=== PATIENT | female | born 1970 | race Caucasian/White ===

== ENCOUNTER 2022-04-18 10:40 | Emergency (ER) | payer BC, SELFPAY ==
[2022-04-18 10:56] VITALS: BP 135/63; PULSE 80; RESP 16; TEMP 36.4; O2SAT 99
--- NOTE | 2022-04-18 11:53 | ED.URI ---
HPI - URI/Sore Throat General Chief Complaint: Upper Respiratory Infection Stated Complaint: ear pain sinus pressure headache Time Seen by Provider: 04/18/22 11:53 Source: patient and RN notes reviewed Mode of arrival: ambulatory Limitations: no limitations History of Present Illness HPI Narrative: 51 year old female presented for complaint of sinus pressure and congestion for several months. She also endorses left ear pain for 5 days. She has had yellow drainage from the left ear and been using a cotton ball. She has been taking [id number] allergy medications for symptoms. She endorses decreased hearing, denies tinnitus, dizziness, nausea, fevers or chills. MD elicited complaint: cough Related Data Home Medications Medication Instructions Recorded Confirmed Vitamin D3 04/18/22 escitalopram oxalate 10 mg tablet 10 mg PO DAILY 04/18/22 04/18/22 escitalopram oxalate 10 mg tablet 10 mg PO DAILY 04/18/22 04/18/22 levothyroxine 137 mcg tablet 137 mcg PO DAILY 04/18/22 04/18/22 (Synthroid) montelukast 10 mg tablet 10 mg PO DAILY 04/18/22 04/18/22 (Singulair) vitamin K 04/18/22 Allergies Allergy/AdvReac Type Severity Reaction Status Date / Time codeine Allergy Unknown Rash Verified 04/18/22 11:50 Review of Systems Review of Systems: CONSTITUTIONAL: Denies malaise, chills, sweats, fever EYES: Denies visual changes, redness, or discharge ENT: Reports left ear pain, rhinorrhea, congestion CARDIOVASCULAR: Denies chest pain, palpitations, edema RESPIRATORY: Denies dyspnea GASTROINTESTINAL: Denies abdominal pain, nausea, vomiting, diarrhea SKIN: Denies rash or itching MUSCULOSKELETAL: Denies myalgia Exam Narrative: GENERAL: Ill-appearing, nontoxic EYES: conjunctivae clear ENT: Mucous membranes moist. Right TM pearly leiva with dull light reflex; Left TM red, bulging, and tender with red canal. no tragal tenderness. Oropharynx erythematous without lesions or exudate, no drooling, no hoarseness, no trismus, uvula midline. No tripod positioning, muffled voice, soft palate or pharyngeal wall bulging NECK: Supple. Posterior cervical lymphadenopathy CHEST: Clear to auscultation, breath sounds equal. HEART: Regular rate and rhythm. No murmur heard. SKIN: Warm, dry, no rash. NEURO: Alert and oriented x3. Course Course Emergency Course: Patient is aware of diagnosis, understands and agrees to treatment plan. Anticipatory guidance given. Patient agrees to follow-up as directed and is aware of reasons to seek care at the emergency department. Portions of this record may have been created with voice recognition software Level of Care: Express Care Visit Vital Signs Vital signs: Vital Signs Temperature 97.5 F L 04/18/22 10:56 Pulse Rate 80 04/18/22 10:56 Respiratory Rate 16 04/18/22 10:56 Blood Pressure 135/63 04/18/22 10:56 Pulse Oximetry 99 04/18/22 10:56 Oxygen Delivery Room Air 04/18/22 10:56 Temperature 97.5 F L 04/18/22 10:56 Pulse Rate 80 04/18/22 10:56 Respiratory Rate 16 04/18/22 10:56 Blood Pressure 135/63 04/18/22 10:56 Pulse Oximetry 99 04/18/22 10:56 Oxygen Delivery Room Air 04/18/22 10:56 reviewed MDM - URI/Sore Throat MDM Narrative Medical decision making narrative: Advised supportive measures and signs/symptoms to go to the ER. Pt is appropriate for outpt treatment and f/u. Differential Diagnosis Differential diagnosis: Likely upper respiratory infection, otitis media, sinusitis and viral infection Discharge Plan Discharge Clinical Impression: Otitis media Qualifiers: Otitis media type: suppurative Chronicity: acute Laterality: left Recurrence: non-recurrent Spontaneous tympanic membrane rupture: without spontaneous rupture Qualified Code(s): H66.002 - Acute suppurative otitis media without spontaneous rupture of ear drum, left ear Patient Disposition: Home, Self-Care Condition: Stable Instructions: Antibiotic Form, Ear Infecti
== END 2022-04-18 12:15 | disposition home or self-care (01) ==
PROVIDERS: Emergency Provider Nurse Practitioner Family; PCP Nurse Practitioner Family
DX: H66.002 Acute suppurative otitis media without spontaneous rupture of ear drum, left ear (principal)
CPT/HCPCS: 99203; G0463

== ENCOUNTER 2024-08-26 16:01 | Emergency (ER) | payer OTHER, SELFPAY ==
--- NOTE | ~2024-08-26 | CT_ITS ---
Non-contrast Head CT History: Headache Technique: Axial non-contrast imaging of the brain was performed. Dose reduction technique was used on this scan by utilizing automated exposure control and iterative reconstruction technique. The dose -length product (DLP) was 605.33 mGy-cm. Findings: There is no evidence of intracranial hemorrhage, mass lesion, or acute infarct. Brain par enchyma appears normal. The ventricles and subarachnoid spaces are normal in size. The calvarium ap pears normal. The visualized paranasal sinuses and mastoid air cells are clear. Impression: No significant abnormality seen. Reviewed, dictated and finalized at location . ACORPOREAL TECHNICIAN Impression: No significant abnormality seen.
--- NOTE | ~2024-08-26 | XR_ITS ---
CHEST RADIOGRAPH CLINICAL HISTORY: cough . COMPARISON: None available TECHNIQUE: Single portable view of the chest. FINDINGS The cardiomediastinal silhouette is unremarkable. The lungs are clear. Visualized osseous structures and soft tissues are unremarkable. IMPRESSION: No focal infiltrate or effusion. Reviewed, dictated and finalized at location A. ER [facility]
[2024-08-26 16:02] VITALS: BP 123/82; PULSE 67; RESP 14; TEMP 36.4; O2SAT 99
--- NOTE | 2024-08-26 16:28 | ED_ITS ---
HPI - Weakness General Chief complaint: Weakness <Samia Page PA-C - Last Filed: 08/26/24 18:46> Stated complaint: head pressure <Samia Page PA-C - Last Filed: 08/26/24 18:46> Time Seen by Provider: 08/26/24 23:11 <Samia Page PA-C - Last Filed: 08/26/24 18:46> Focused HPI: 53-year-old female with history of hypothyroidism presents to emergency department for multiple medical complaints. Patient is reporting sinus congestion, cough, dizziness for the past several months. Dizziness is worse with movement, better when sitting still. She states she feels like her equilibrium is off and her ears are full. 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 She also expresses frustration that she had to clean her bathroom and she does not receive help from the rest of her family for house duties. GENERAL: Well-appearing, well-nourished, and in no acute distress. HEAD: Normocephalic, atraumatic. CHEST: Clear to auscultation. ?No respiratory distress. HEART: Regular rate and rhythm.? NEURO: ?Alert and oriented x3. Patient screened in triage and initial orders placed.? ?Additional care and disposition to be based upon?diagnostic testing and treatment. <Samia Page PA-C - Last Filed: 08/26/24 18:46> History of Present Illness HPI Narrative: Agree with the HPI as described above. Patient's main concern is that she is having a headache on and off for last several days. She has multiple non emergent or non medical complaints and has difficulty staying on topic when discussing. Patient states that she has transportation issues, issues with her , disability issues. When asked why she came to the hospital today she just wanted something for headache and have some relief. Denies any injury or trauma. <Facundo Chicas MD - Last Filed: 08/27/24 00:52> Related Data Home medications: Home Medications ?Medication ?Instructions ?Recorded ?Confirmed ?Last Taken ?Type Vitamin D3 04/18/22 Unknown History escitalopram oxalate 10 mg tablet 10 mg PO DAILY 04/18/22 04/18/22 Unknown History escitalopram oxalate 10 mg tablet 10 mg PO DAILY 04/18/22 04/18/22 Unknown History levothyroxine 137 mcg tablet 137 mcg PO DAILY 04/18/22 04/18/22 Unknown History (Synthroid) montelukast 10 mg tablet 10 mg PO DAILY 04/18/22 04/18/22 Unknown History (Singulair) vitamin K 04/18/22 Unknown History <Samia Page PA-C - Last Filed: 08/26/24 18:46> Allergies/Adverse reactions: Allergies Allergy/AdvReac Type Severity Reaction Status Date / Time codeine Allergy Unknown Rash Verified 04/18/22 11:50 <Samia Page PA-C - Last Filed: 08/26/24 18:46> Review of Systems 2 Review of Systems: As reviewed above in HPI <Facundo Chicas MD - Last Filed: 08/27/24 00:52> Exam 2 Narrative: GENERAL: [Well-appearing, well-nourished, and in no acute distress.] HEAD: [Normocephalic, atraumatic.] EYES: [PERRLA and EOMI.] ENT: Nares clear, no rhinorrhea or epistaxis. Mucous membranes moist. NECK: Supple. CHEST: [Clear to auscultation. No respiratory distress.] HEART: [Regular rate and rhythm]. No murmur heard. [Normal peripheral pulses.] ABDOMEN: [Soft, nondistended], [nontender], [No rigidity or guarding] EXTREMITIES: Normal range of motion. [No edema.] SKIN: Warm, dry, no rash. NEURO: [No focal deficits]. Alert and oriented [x3.] Moves all extremities spontaneously, no weakness or sensory changes in the arms or legs. Answers all questions appropriately. PSYCH: [Normal mood and affect.] <Facundo Chicas MD - Last Filed: 08/27/24 00:52> Course Vital Signs Vital signs: Vital Signs Temperature 36.4 C 08/26/24 16:02 Pulse Rate 67 08/26/24 16:02 Respiratory Rate 14 08/26/24 16:02 Blood Pressure 123/82 08/26/24 16:02 Pulse Oximetry 99 08/26/24 16:02 Temperature 36.4 C 08/26/24 16:02 Pulse Rate 61 08/26/24 23:33 Respiratory Rate 19 08/26/24 23:33 Blood Pressure 150/82 H 08/26/24 23:33 Pulse Oximetry 99 08/26/24 23:33 <Samai Page PA-C - Last Filed: 08/26/24 18:46> Vital Signs Temperature 36.4 C 08/26/24 16:02 Pulse Rate 67 08/26/24 16:02 Respiratory Rate 14 08/26/24 16:02 Blood Pressure 123/82 08/26/24 16:02 Pulse Oximetry 99 08/26/24 16:02 Temperature 36.4 C 08/26/24 16:02 Pulse Rate 61 08/26/24 23:33 Respiratory Rate 19 08/26/24 23:33 Blood Pressure 150/82 H 08/26/24 23:33 Pulse Oximetry 99 08/26/24 23:33 <Facundo Chicas MD - Last Filed: 08/27/24 00:52> MDM - Weakness MDM Narrative Medical decision making narrative: 53-year-old female with a remote history of MS, hypothyroidism. She presents today with multiple complaints but mostly is worried about a headache she has had for last few days. She has describes head pressure, sinus pressure, throbbing sensation behind her eyes. Denies any vision changes or nausea. No vomiting. She was otherwise in normal state of health. She has multiple non emergent and nonmedical complaints and it takes several attempts to get her chief complaint. She has a nonfocal examination with normal neurological assessment, normal strength and sensation. Normal vital signs without any tachycardia, fever, hypoxia blood pressure concerns. Normal strength and sensation, no facial asymmetry. Suspicion presently is for some cephalgia, tension headache versus sinus pressure headache, migraine headache. Low suspicion for MS or other new intracranial pathology causing her symptoms. Denies any trauma or injury. Will evaluate with a CT of the head as well as basic laboratory studies. She was given a migraine cocktail with Compazine, diphenhydramine, Decadron, Toradol, normal saline bolus and re-evaluated thereafter. Patient did have improvement her headache but also started to feel some akathisia for which additional Benadryl was given with improvement. Her CT of the head shows no acute hemorrhage hydrocephalus, mass effect or herniation. Overall unremarkable CT scan. Laboratory studies are also reassuring with no leukocytosis or anemia. Normal platelet count normal hepatic and renal function. Normal electrolytes. Normal glucose. Urinalysis without any concerns such as infection. Negative viral panel. Given patient's symptomatic resolution after migraine cocktail and her normal labs I believe she can be safe and stable to discharge with regular PCP follow- up. She presently does not have a neurologist in the area she moved here recently. She will be referred to her local neurologist for evaluation outpatient for her MS to have continuity of care. <Facundo Chicas MD - Last Filed: 08/27/24 00:52> Medical Records Attestation: I reviewed the patient's medical records. <Facundo Chicas MD - Last Filed: 08/27/24 00:52> Lab Data Attestation: I reviewed the patient's lab results. <Facundo Chicas MD - Last Filed: 08/27/24 00:52> Result diagrams: 08/26/24 17:25 08/26/24 17:26 <Samia Page PA-C - Last Filed: 08/26/24 18:46> Labs: Lab Results 08/26/24 08/26/24 08/26/24 Range/Units 17:25 17:26 22:10 WBC 6.9 (4.5-10.0) K/mm3 RBC 4.58 (4.2-5.4) M/mm3 Hgb 13.7 (12.0-15.0) g/dL Hct 42.6 (37.0-47.0) % MCV 93.0 (80-100) fl MCH 29.9 (26-34) pg MCHC 32.2 (32-36) g/dl RDW 13.2 (11.5-14.5) % Plt Count 236 (150-375) k/mm3 MPV 10.2 (7.4-10.4) fl Immature Gran % (Auto) 0.3 (0-0.5) % Neut % (Auto) 34.8 L (45.5-73.1) % Lymph % (Auto) 52.0 H (18.3-44.2) % [place] % (Auto) 7.1 (2.6-8.5) % Eos % (Auto) 5.2 H (0-4.4) % Baso % (Auto) 0.6 (0.2-1.2) % Lymph # (Auto) 3.58 H (0.9-3.2) K/mm3 [place] # (Auto) 0.5 (0.1-0.6) K/mm3 Eos # (Auto) 0.4 H (0-0.3) K/mm3 Baso # (Auto) 0.0 (0.0-0.1) K/mm3 Abs Immat Gran (auto) 0.02 (0.00-0.031) K/mm3 Absolute Neuts (auto) 2.4 (1.3-6.7) K/mm3 Absolute Nucleated RBC 0.000 (0.0-0.012) K/mm3 Nucleated RBC % 0.0 (0.0-0.2) % Sodium 139 (137-145) mmol/L Potassium 3.7 (3.4-5.0) mmol/L Chloride 103 (98-107) mmol/L Carbon Dioxide 29 (22-30) mmol/L Anion Gap 7 (4-12) mmol/L BUN 20 H (7-17) mg/dL Creatinine 0.74 (0.7-1.0) mg/dL Estim Creat Clear Calc Not Reportable Estimated GFR > 60 (59 - ) Glucose 95 (65-110) mg/dL Calcium 8.3 L (8.4-10.2) mg/dL Total Bilirubin 0.4 (0.2-1.3) mg/dL AST 22 (14-36) U/L ALT 18 (6-35) U/L Alkaline Phosphatase 62 (38-126) U/L Total Protein 7.0 (6.3-8.2) g/dL Albumin 3.7 (3.5-5.1) g/dL Urine Color Yellow (Yellow) Urine Appearance Clear (Clear) Urine pH 6.0 (5.0-9.0) Ur Specific [place] 1.024 (1.001-1.035) Urine Protein Negative (Negative) mg/dL Urine Glucose (UA) Negative (Negative) mg/dL Urine Ketones Negative (Negative) mg/dL Ur Blood (Man) Negative (Negative) Urine Nitrate Negative (Negative) Urine Bilirubin Negative (Negative) Urine Urobilinogen 1.0 (<2.0) mg/dL Leukocyte Esterase Rfl Negative (Negative) TRESA/UL Influenza A (RT-PCR) Negative (Negative) Influenza B (RT-PCR) Negative (Negative) RSV (RT-PCR) Negative (Negative) SARS-CoV-2 RNA (RT-PCR) Negative (Negative) <Samia Page PA-C - Last Filed: 08/26/24 18:46> Lab Results 08/26/24 08/26/24 08/26/24 Range/Units 17:25 17:26 22:10 WBC 6.9 (4.5-10.0) K/mm3 RBC 4.58 (4.2-5.4) M/mm3 Hgb 13.7 (12.0-15.0) g/dL Hct 42.6 (37.0-47.0) % MCV 93.0 (80-100) fl MCH 29.9 (26-34) pg MCHC 32.2 (32-36) g/dl RDW 13.2 (11.5-14.5) % Plt Count 236 (150-375) k/mm3 MPV 10.2 (7.4-10.4) fl Immature Gran % (Auto) 0.3 (0-0.5) % Neut % (Auto) 34.8 L (45.5-73.1) % Lymph % (Auto) 52.0 H (18.3-44.2) % [place] % (Auto) 7.1 (2.6-8.5) % Eos % (Auto) 5.2 H (0-4.4) % Baso % (Auto) 0.6 (0.2-1.2) % Lymph # (Auto) 3.58 H (0.9-3.2) K/mm3 [place] # (Auto) 0.5 (0.1-0.6) K/mm3 Eos # (Auto) 0.4 H (0-0.3) K/mm3 Baso # (Auto) 0.0 (0.0-0.1) K/mm3 Abs Immat Gran (auto) 0.02 (0.00-0.031) K/mm3 Absolute Neuts (auto) 2.4 (1.3-6.7) K/mm3 Absolute Nucleated RBC 0.000 (0.0-0.012) K/mm3 Nucleated RBC % 0.0 (0.0-0.2) % Sodium 139 (137-145) mmol/L Potassium 3.7 (3.4-5.0) mmol/L Chloride 103 (98-107) mmol/L Carbon Dioxide 29 (22-30) mmol/L Anion Gap 7 (4-12) mmol/L BUN 20 H (7-17) mg/dL Creatinine 0.74 (0.7-1.0) mg/dL Estim Creat Clear Calc Not Reportable Estimated GFR > 60 (59 - ) Glucose 95 (65-110) mg/dL Calcium 8.3 L (8.4-10.2) mg/dL Total Bilirubin 0.4 (0.2-1.3) mg/dL AST 22 (14-36) U/L ALT 18 (6-35) U/L Alkaline Phosphatase 62 (38-126) U/L Total Protein 7.0 (6.3-8.2) g/dL Albumin 3.7 (3.5-5.1) g/dL Urine Color Yellow (Yellow) Urine Appearance Clear (Clear) Urine pH 6.0 (5.0-9.0) Ur Specific [place] 1.024 (1.001-1.035) Urine Protein Negative (Negative) mg/dL Urine Glucose (UA) Negative (Negative) mg/dL Urine Ketones Negative (Negative) mg/dL Ur Blood (Man) Negative (Negative) Urine Nitrate Negative (Negative) Urine Bilirubin Negative (Negative) Urine Urobilinogen 1.0 (<2.0) mg/dL Leukocyte Esterase Rfl Negative (Negative) TRESA/UL Influenza A (RT-PCR) Negative (Negative) Influenza B (RT-PCR) Negative (Negative) RSV (RT-PCR) Negative (Negative) SARS-CoV-2 RNA (RT-PCR) Negative (Negative) <Facundo Chicas MD - Last Filed: 08/27/24 00:52> Imaging Data Attestation: I personally reviewed and interpreted this imaging study as follows: < Facundo Chicas MD - Last Filed: 08/27/24 00:52> My impression: Impressions Chest X-Ray 08/26/24 16:57 IMPRESSION: No focal infiltrate or effusion. <Facundo Chicas MD - Last Filed: 08/27/24 00:52> Discharge Plan Discharge Clinical Impression: Migraine headache, History of multiple sclerosis <Samia Page PA-C - Last Filed: 08/26/24 18:46> Patient Disposition: Home, Self-Care <Samia Page PA-C - Last Filed: 08/26/24 18:46> Condition: Stable <Samia Page PA-C - Last Filed: 08/26/24 18:46> Instructions: Antibiotic Form, Migraine Headache (ED), Acute Headache (DC) <Samia Page PA-C - Last Filed: 08/26/24 18:46> Additional Instructions: Your headache likely sounds like a migraine, your head CT shows no findings, normal laboratory studies. We will refer you to our local neurologist for outpatient evaluation and to establish care for your MS treatments. Return with any concerns. <Samia Page PA-C - Last Filed: 08/26/24 18:46> Patient Language: [place] <Samia Page PA-C - Last Filed: 08/26/24 18:46> Prescriptions: No Action levothyroxine [Synthroid] 137 mcg Tablet 137 mcg PO DAILY montelukast [Singulair] 10 mg Tablet 10 mg PO DAILY escitalopram oxalate 10 mg Tablet 10 mg PO DAILY escitalopram oxalate 10 mg Tablet 10 mg PO DAILY Vitamin D3 vitamin K ibuprofen 800 mg tablet 800 mg PO TID PRN (Reason: pain) Qty: 15 0RF amoxicillin-pot clavulanate 875-125 mg tablet 1 tablet PO Q12H 7 Days Qty: 14 0RF <Samia Page PA-C - Last Filed: 08/26/24 18:46> Follow-up/Referrals: Meraz,Iraida Hutchins APN [Primary Care Provider] - Odin Moore MD [Physician] - 1 Week (Establish care, history of MS) <LAURENCE Randhawa Last Filed: 08/26/24 18:46> Time of Disposition: 00:52 <Samia Page PA-C - Last Filed: 08/26/24 18:46> 00:52 <Facundo Chicas MD - Last Filed: 08/27/24 00:52>
[2024-08-26 17:40] LABS: Basophils Percent Auto 0.6 % (0.2-1.2); Eosinophils Absolute Auto 0.4 K/mm3 (0-0.3); Eosinophils Percent Auto 5.2 % (0-4.4); Hematocrit 42.6 % (37.0-47.0); Hemoglobin 13.7 g/dL (12.0-15.0); Immature Granulocyte Absolute 0.02 K/mm3 (0.00-0.031); Immature Granulocyte Percent A 0.3 % (0-0.5); Lymphocytes Absolute Auto 3.58 K/mm3 (0.9-3.2); Mean Corpuscular HGB Conc 32.2 g/dl (32-36); Mean Corpuscular Hemoglobin 29.9 pg (26-34); Mean Platelet Volume 10.2 fl (7.4-10.4); Monocytes Absolute Auto 0.5 K/mm3 (0.1-0.6); Monocytes Percent Auto 7.1 % (2.6-8.5); Neutrophils Absolute Auto 2.4 K/mm3 (1.3-6.7); Neutrophils Percent Auto 34.8 % (45.5-73.1); Platelet Count Result 236 k/mm3 (150-375); Red Blood Count 4.58 M/mm3 (4.2-5.4); Red Cell Distribution Width 13.2 % (11.5-14.5); White Blood Count 6.9 K/mm3 (4.5-10.0)
[2024-08-26 17:59] LABS: Alanine Aminotransferase 18 U/L (6-35); Albumin Level 3.7 g/dL (3.5-5.1); Alkaline Phosphatase 62 U/L (38-126); Anion Gap 7 mmol/L (4-12); Aspartate Amino Transferase 22 U/L (14-36); Bilirubin,Total 0.4 mg/dL (0.2-1.3); Blood Urea Nitrogen 20 mg/dL (7-17); Calcium 8.3 mg/dL (8.4-10.2); Carbon Dioxide 29 mmol/L (22-30); Chloride 103 mmol/L (98-107); Estimated Glomerular Filt Rate > 60; Glucose 95 mg/dL (65-110); Potassium 3.7 mmol/L (3.4-5.0); Sodium 139 mmol/L (137-145)
[2024-08-26 18:23] LABS: Influenza A QL RT-PCR Negative (Negative); Influenza B QL RT-PCR Negative (Negative); RSV RNA, RT-PCR Negative (Negative); SARS-CoV-2 RNA PCR Negative (Negative)
--- OUTSIDE RECORDS SUMMARY | 2024-08-26 18:25 | XMS_ITS | Clinical Summary ---
Author Organization [facility] Address [address] [place] [address] Phone Care Team Providers Care Insurance Auditor Name Role Phone KIYA BUITRAGO NP Primary Care Provider [phone] LELA MCCANN, HENRI Jackson Unavailable [phone] Reason for Visit and Chief Complaint gynecologic annual exam - The Chief Complaint is: Annual Exam Problems Includes: Problems addressed during this encounter and other active Problems Current Visit Onset Date Resolved Date Provider Conditio n Status Reported Family History of Heart Disease 02/24/2015 JASE MAGANA RN [facility] Active Last Documented On 02/24/2015 1:16PM ; [facility] Note: Unchanged - dad History of Hypothyroidism 02/24/2015 JASE MAGANA RN [facility] Active Last Documented On 02/24/2015 1:16PM ; [facility] Note: Unchanged History of Tubal Ligation 02/24/2015 JASE MAGANA RN [facility] Active Last Documented On 02/24/2015 1:16PM ; [facility] Note: Unchanged Past Visits Onset Date Resolved Date Provider Condition Status Excessive Bleeding During Period (Menorrhagia) 10/20/2015 03/30/2020 JASE MAGANA RN [facility] Resolved Last Documented On 03/30/2020 10:31AM ; [facility] Note: Unchanged - -- pt states the LMP s tarted on09/20/2015 and is still going to now. In her heaviest 24 hours she has gone throught 3 items per 24 hours. She has needed this many for 7 days of the flow. Most of the other days just one item. Piror menses was a month earlier and it lasted 14 days in similar amounts. Multiple Sclerosis 02/24/2015 JASE DUPONT RN [facility] Active Last Documented On 5 1:17PM ; [facility] Plan of Treatment - Weight loss diet - Last Documented On 03/30/2020 10:47AM ; [facility] - Clinical summary provided to patient - Last Documented On 03/30/2020 10:47AM ; [facility] PT TO CALL WITH ANY CHANGE IN STATUS ALL QUESTIONS ANSWERED WITH UNDERSTANDING VERBALIZED BY PT. - Last Documented On 03/30/2020 10:47AM ; [facility] PT TO CALL WITH ANY CHANGE IN STATUS ALL QUESTIONS ANSWERED WITH UNDERSTANDING VERBALIZED BY PT. - Last Documented On 03/30/2020 10:47AM ; [facility] Instructions to patient Instructed to call if excess wesly bleeding or abdominal/pelvic pain Last Documented On 0 10:32AM ; [facility] Instructions For Patient: Mo nthly Self Breast Exam Last Documented On 0 10:32AM ; [facility] Recommend diet and exercise at least 30 min three times per week Last Documented On 0 10:32AM ; [facility] Education and Decision Aids were provided during visit for: Patient Education: Daily emily cium and vitamin D Last Documented On 0 10:32AM ; [facility] Assessments Includes: Assessments from this encounter Findings - Routine gynecological exam with abnormal findings - Last Documented On 03/30/2020 10:47AM ; [facility] - Cutaneous candidiasis - Last Documented On 03/30/2020 10:47AM ; [facility] - Screen malignant neoplasm cervix - Last Documented On 03/30/2020 10:47AM ; [facility] Instructions Includes: Instructions from this encounter Instructions to patient Instructed to call if excess wesly bleeding or abdominal/pelvic pain Last Documented On 0 10:32AM ; [facility] Instructions For Patient: Mo nthly Self Breast Exam Last Documented On 0 10:32AM ; [facility] Recommend diet and exercise at least 30 min three times per week Last Documented On 0 10:32AM ; [facility] Education and Decision Aids were provided during visit for: Patient Education: Daily emily cium and vitamin D Last Documented On 0 10:32AM ; [facility] Medical Equipment - Implanted Devices Includes: Current Devices No Medical Equipment Recorded Medications Includes: Medications discussed during this encounter and other current Medications New / Renewed during this visit JASE MAGANA RN [facility] on 03/30/2020 Nystatin 183007 UNIT/GM External Cream Provider: JASE MAGANA RN [place] P 7 day supply: 30 gram, 2 refills Diagnosis: Candidiasis of skin and nail as directed THREE TIMES A DA Y TO AFFECTED AREAS Pharmacy: [address], [id number] - Last Documented On 0 10:49AM By JASE SMITH- ; [facility] Current Medications (continue as prescribed) Augmentin 875-125MG Oral Tablet 03/20/2017 Provider: Diagnosis: for 10 days for sinus infection Last Documented On 7 10:12AM By ABHINAV CHERY ; [facility] SM Echinacea 125MG Oral Tablet 03/20/2017 Provider: Diagnosis: Last Documented On 7 10:12AM By ABHINAV CHERY ; [facility] Turmeric 500MG Oral Capsule, conventional 03/20/2017 Provider: Diagnosis: Last Documented On 7 10:13AM By ABHINAV CHERY ; [facility] Jessie Allergy 180MG Oral Tablet 03/20/2017 Provide r: Diagnosis: Last Documented On 7 10:13AM By ABHINAV CHERY ; [facility] Buffered Vitamin C 1000MG Oral Capsule, conventional 0 03/20/2017 Provider: Diagnosis: Last Documented On 7 10:11AM By ABHINAV CHERY ; [facility] Digestive Probiotic Oral Capsule, conventional Provider: Diagnosis: Last Documented On 7 10:11AM By ABHINAV CHERY ; [facility] B Complex-B12 Tablet 03/17/2016 Provider: Diagnosis: Last Documented On 03/17/2016 3:22PM By VINNIE YAP MA ; [facility] Vitamin D3 1000 UNIT Tablet 03/17/2016 Provider: Diagnosis: Last Documented On 03/17/2016 3:22PM By VINNIE YAP MA ; [facility] Daily Value Multivitamin Tablet 03/17/2016 Provider: Diagnosis: Last Documented On 03/17/2016 3:22PM By VINNIE YAP MA ; [facility] Singulair 4 MG Tablet, chewable 03/17/2016 Provider: Diagnosis: Last Documented On 03/17/2016 3:21PM By VINNIE YAP MA ; [facility] Flonase 50 MCG/ACT Suspension 02/24/2015 Provider: Diagnosis: Last Documented On 5 1:10PM By MAX CHERY ; [facility] Levothyroxine Sodium 100 MCG Tablet 02/24/2015 Provi danny: Diagnosis: Last Documented On 5 12:58PM By MAX CHERY ; [facility] Past Medications on file Ibuprofen 800MG Oral Tablet 03/22/2018 - 04/05/2018 Provider: JASE SMITH BC Diagnosis: Insect bite (nonvenomous) of breast, left breast, init One tablet three times a day TAKE DIRECTED W/FOOD Last Documented On 8 8:38AM By JASE BEATTY ; [facility] Sulfamethoxazole-Trimethopri m 800-160MG Oral Tablet 03/22/2018 - 03/29/2018 Provider: JASE SMITH BC Diagnosis: Insect bite (nonvenomous) of breast, left breast, init One tablet twice a day ONE TAB 2 TIMES A DAY WIT H FOOD Last Documented On 8 8:38AM By JASE JACOBS ; [facility] Sprintec 28 0.25-35MG-MCG Oral Tablet 03/22/2018 - 03/17/2019 Provider: JASE SMITH BC Diagnosis: Other specified abnormal uterine and vaginal bleeding One tablet daily Last Documented On 8 8:38AM By JASE JACOBS ; [facility] Naproxen 500MG Oral Tablet 03/15/2018 - 03/22/2018 Provider: JASE SMITH BC Diagnosis: Insect bite (nonvenomous) of breast, left breast, init One tablet twice a day ONE T AB TWICE A DAY WITH FOOD DON'T EXCEED 2 TABS IN 24 HOURS Last Documented On 8 9:11AM By JASE JACOBS ; [facility] Fluconazole 150MG Oral Tablet 03/15/2018 - 03/22/2018 Provider: JASE SMITH BC Diagnosis: Insect bite (nonvenomous) of breast, left breast, init as directed take one tablet day 4 and one tablet day 7 of antibiotics Last Documented On 8 9:11AM By JASE JACOBS ; [facility] Amoxicillin-Pot Clavulanate 875-125MG Oral Tablet 03/15/2018 - 03/22/2018 Provider: JASE SMITH BC Diagnosis: Insect bite (nonvenomous) of breast, left breast, init One tablet twice a day Last Documented On 8 9:11AM By JASE JACOBS ; [facility] Lo Loestrin Fe 1 MG-10 MCG /10 MCG Oral Tablet 03/20/2017 - 05/15/2017 Provider: JASE SMITH BC Diagnosis: Excessive and fr equent menstruation with regular cycle One tablet daily USE DIRECTED Last Documented On 7 10:42AM By JASE JACOBS ; [facility] Medications Administered Includes: Administered Medications from this encounter No Administered Medications Recorded Vital Signs Includes: Vital Signs from this encounter Vital Name 03/30/2020 10:24A Blood Pressure Sitting (mmHg) 120/60 Temp-Oral (F) 97.2 Height (in) 59 Weight (lb) 177 Body Mass Index (kg/m2) 35.7 Body Surface Area (m2) 1.8 Last Documented: On 03/30/2020 10:28A M ; [facility] Results Includes: Results discussed during this encounter No Results Recorded For Specified Dates History of Present Illness Includes: History of Present Illness from this encounter No History of Present Illness Recorded Social History Description Last Updated Sexually active 03/30/2020 Last Documented On 0 10:47AM ; [facility] Alcohol use: 2 drinks or less per day no ne 03/30/2020 Last Documented On 0 10:47AM ; [facility] Exercising regularly 03/30/2020 Last Documented On 0 10:47AM ; [facility] Not using alcohol 03/30/2020 Last Documented On 0 10:47AM ; [facility] Not using drugs 03/30/2020 Last Documented On 0 10:47AM ; [facility] Personal history 03/30/2020 Last Documented On 0 10:47AM ; [facility] Single 03/30/2020 Last Documented On 0 10:47AM ; [facility] Smoking status : Never smoker 03/30/2020 Last Documented On 0 10:47AM ; [facility] Social history unchanged 03/30/2020 Last Documented On 0 10:47AM ; [facility] Procedures and Surgical History Includes: Procedures from this encounter Procedures Code Diagnosis Performing Provider Service L ocation Service Date education and instructions Last Documented On 0 10:32AM ; [facility] explanation of plan Last Documented On 0 10:32AM ; [facility] medical regimen review Last Documented On 0 10:32AM ; [facility] Urged Exercise and Diet , exercise at le ast 30 min three times per week Last Documented On 0 10:32AM ; [facility] cervical Pap smear 20690 Last Documented On 0 10:32AM ; [facility] FIT Test-Fecal Occult negative 85687 Last Documented On 0 10:32AM ; [facility] Surgical History Last Updated Surgical / procedural history c/s x2 Last Documented On 0 10:24AM ; [facility] Previous colposcopy 04/15/2010 5 Last Documented On 0 10:24AM ; [facility] Surgical history unchanged 02/24/2015 Last Documented On 0 10:24AM ; [facility] History of cholecystectomy 02/24/2015 Last Documented On 0 10:24AM ; [facility] History of tubal ligation 02/24/2015 Last Documented On 0 10:24AM ; [facility] Medical History Includes: Medical History addressed during this encounter Description Last Updated A mammogram was performed 03/30/2020 Last Documented On 0 10:47AM ; [facility] History of a DXA of the lateral lumbar s pine was performed 03/28/2019 03/30/2020 Last Documented On 0 10:47AM ; [facility] History of Pap smear done 03/26/201903/04 Last Documented On 0 10:47AM ; [facility] History of screening mammogram was perfo rmed 04/06/2019 03/30/2020 Last Documented On 0 10:47AM ; [facility] Not sexually active 1 partner 03/26/2019 Last Documented On 0 10:24AM ; [facility] LMP: 2017 03/15/2018 Last Documented On 0 10:24AM ; [facility] History of dysfunctional uterine bleedin g 03/20/2017 Last Documented On 0 10:24AM ; [facility] Aborta 1 03/20/2017 Last Documented On 0 10:24AM ; [facility] 3 03/20/2017 Last Documented On 0 10:24AM ; [facility] Para 2 03/20/2017 Last Documented On 0 10:24AM ; [facility] Result: normal 03/20/2017 Last Documented On 0 10:24AM ; [facility] PRIMARY CARE PROVIDER : prakash Buitrago Last Documented On 0 10:24AM ; [facility] section x 2 01/19/2016 Last Documented On 0 10:24AM ; [facility] Status post tubal ligation 01/19/2016 Last Documented On 0 10:24AM ; [facility] ovarian cysts 05/13/2015 Last Documented On 0 10:24AM ; [facility] MULTIPLE SCLEROSIS 02/24/2015 Last Documented On 0 10:24AM ; [facility] History of hypothyroidism 02/24/2015 Last Documented On 0 10:24AM ; [facility] No recent change in medical history 02/01 Last Documented On 0 10:24AM ; [facility] Family History Includes: Family History addressed during this encounter Description Last Updated Maternal history of hypertension mom Last Documented On 0 10:24AM ; [facility] Maternal history of hypercholesterolemia mom 06/24/2015 Last Documented On 0 10:24AM ; [facility] Paternal history of diabetes mellitus da d 06/24/2015 Last Documented On 0 10:24AM ; [facility] Paternal history of family history of he art disease dad 06/24/2015 Last Documented On 0 10:24AM ; [facility] Family history unchanged 02/24/2015 Last Documented On 0 10:24AM ; [facility] Family history of diabetes mellitus dad 02/24/2015 Last Documented On 0 10:24AM ; [facility] Family history of heart disease dad 02/01 Last Documented On 0 10:24AM ; [facility] Family history of hypercholesterolemia m om 02/24/2015 Last Documented On 0 10:24AM ; [facility] Family history of hypertension mom 02/24 Last Documented On 0 10:24AM ; [facility] Review of Systems Includes: Review of Systems from this encounter Systemic: Not tiring easily. No fever, no chills, no unusual bleeding, and no recent weight change. No pain. Head: No headache. Neck: No neck pain and no swollen glands in the neck. Eyes: No vision problems. Breasts: No breast symptoms, no breast lump, no pain in breast, and patient performs self breast exams. Cardiovascular: No chest pain or discomfort and no palpitations. Pulmonary: No pulmonary symptoms, no dyspnea, no cough, and no wheezing. Gastrointestinal: No heartburn. No nausea, no vomiting, no abdominal pain, no diarrhea, and no constipation. Genitourinary: No change in urinary frequency and no incomplete emptying of bladder. No urinary loss of control and no dysuria. No genital lesion, no pain during intercourse, and no vaginal dryness. No nonmenstrual bleeding. No vaginal discharge. Endocrine: No polydipsia, no hot flashes, and libido has not changed. Musculoskeletal: No back pain, no muscle aches, and no localized joint pain. Neurological: No dizziness. Psychological: No anxiety, no depression, and a desire to continue living. Skin: Pruritus. No skin lesions. Rash: Mental Status Includes: Mental Status from this encounter Description Oriented to time, place, and person No anxiety A desire to continue living Functional Status Includes: Functional Status from this encounter No Functional Status Recorded Physical Exam Includes: Physical Exam from this encounter Allergies Includes: Active Allergies Substance Type Reaction Onset Date Resolved Date Statu s Codeine and Related Allergy Skin Rashes / Eruption of skin 03/20/2017 Active Last Documented On 9 9:47AM ; [facility] Encounters Encounter Provider Location Date Check-In Time Check-Out Time Diagnosis WELL WOMAN EXAM JASE MAGANA RN [facility] 03/30/20 20 10:30AM 10:48AM Screen Malignant Neoplasm Cervix,Routine Gynecological Exam with Abnormal Findings,Candidi asis of the Skin Insurance Includes: Active Insurance Policies Plan Name Member ID Group # Subscriber Relationship Effect wesly Dates 1 - [facility] [id number] ELVIRA Moy 2 - [facility] [id number] ELVIRA Moy Clinical Notes Includes: Clinical Notes from this encounter No Clinical Notes Recorded
--- OUTSIDE RECORDS SUMMARY | 2024-08-26 18:26 | XMS_ITS | Clinical Summary ---
Author Organization [facility] Address [address] [place] [address] Phone Care Team Providers Care Trust Operations Assistant Name Role Phone Marciano Hutton MD Unavailable [phone] Iraida Meraz APRN, EXHIBIT PREPARATOR Primary Care Provider [phone] Allergies Active Allergy Reactions Criticality Noted Date Comments Codeine Itching Medium 02/03/2016 Medications levothyroxine (SYNTHROID) 100 MCG Tablet 1 Tab daily. 2 6 Active fluticasone (FLONASE) 50 MCG/ACT Suspension 2 Sprays daily. 2 6 Active montelukast (SINGULAIR) 10 MG Tablet Take 10 mg by mouth every evening. Active hydrOXYzine (ATARAX) 50 MG Tablet TAKE 1 TABLET(S) 4 TIMES A DAY BY ORAL ROUTE NEEDED. 0 6 Active PARoxetine (PAXIL) 10 MG Tablet TAKE 1 TABLET(S) EVERY DAY BY ORAL ROUTE. 0 6 Active Dimethyl Fumarate (TECFIDERA) 240 MG CAPSULE DELAYED RELEASE Take 240 mg by mouth 2 times daily. Start taking this after your initial 120 mg twice a day. 60 Cap 2 7 Active Additional Information Patient not taking.Reported on 03/20/2019 levothyroxine (SYNTHROID) 125 MCG Tablet Take 1 Tab by mouth daily. 90 Tab 9 Active Additional Information Patient taking differently: 150 mcgOral DAILY, Reported on 03/20/2019 Active Problems Problem Noted Date Diagnosed Date Vitamin D deficiency 06/07/2016 Multiple sclerosis exacerbation 04/20/2016 Multiple sclerosis 07/31/2015 Muscle spasm 07/31/2015 Urinary urgency 07/31/2015 Ataxia 07/31/2015 Family History Medical History Relation Name Comments Bipolar Disorder Father Diabetes Father Heart Disease Father Kidney Disease Father Chronic Obstructive Pulmonary Disease Mother Hypertension Mother Relation Name Status Comments Father Mother Social History Tobacco Use Types Packs/Day Years Used Date Smoking Tobacco: Former Cigarettes Q uit: 03/20/2016 Smokeless Tobacco: Never Tobacco Cessation:Counseling Given: No Alcohol Use Standard Drinks/Week Comments Never 0 (1 standard drink = 0.6 oz pur e alcohol) AUDIT-C Answer Date Recorded Frequency of Alcohol Consumption Never 04/22/2020 Average Number of Drinks Not on file 020 Frequency of Binge Drinking Not on file 04/03 Comments No Sex and Gender Information Value Date Recorded Sex Assigned at Not on file Legal Sex Female 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 Gender Identity Not on file Sexual Orientation Not on file 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 Not on file Not on file Not on file Last Filed Vital Signs Vital Sign Reading Time Taken Comments Blood Pressure 115/70 04/17/2019 11:01 AM CDT Pulse 72 04/17/2019 11:01 AM CDT Temperature 36 C (96.8 F) 04/17/2019 11:01 AM CDT Respiratory Rate 16 04/17/2019 11:01 AM CDT Oxygen Saturation 98% 04/17/2019 11:01 AM CDT Inhaled Oxygen Concentration - - Weight 77.1 kg (170 lb) 03/20/2019 3:00 PM CDT Height 149.9 cm (4' 11 ) 03/20/2019 3:00 PM CDT Body Mass Index 34.34 03/20/2019 3:00 PM CDT Plan of Treatment Health Maintenance Due Date Last Done Comments Hepatitis C Virus (HCV) Screening 1970 Hepatitis B Immunization (1 of 3 - 19+ 3-dose series) 1988 HPV/Cotest 11/16/1999 Colonoscopy 2014 Cologuard 11/16/2019 Pneumococcal Immunization (5 0+ years) (1 of 1 - PCV) 11/16/2019 Zoster Immunization (1 of 2) 11/16/2019 Colorectal Cancer Screening 03/31/2020 Immunochemical Fecal Occult Blood 03/30/2021 03/30/2020 Mammogram 04/22/2021 04/22/2020, 04/06/2019 Cervical Cancer Screening (CCS) 03/30/2023 Pap Smear 03/30/2023 03/30/2020 Influenza Immunization (#1) 2024 SARS-COV-2 Immunization ( season) 2024 12/08/2020, 11/17/2020 Respiratory Syncytial Virus (RSV) Immunization (Adult) (1 - 1-dose 75+ series) 2044 DTaP/Tdap/Td Immunization Discontinued 07/17/2007 TdaP Immunization Completed 07/17/2007 Discussion re Starting/Frequency of Mammograms Discontinued 04/22/2020, 04/06/2019 Meningococcal Immunization (ACWY) Aged Out No longer eligible based on patient's age to complete this topic Pneumococcal Immunization Combined Aged Out No longer eligible based on patient's age to complete this topic Rotavirus Immunization Aged Out No lo nger eligible based on patient's age to complete this topic Procedures Procedure Name Priority Date/Time Associated Diagnosis Comments [facility] SCREENING BILATERAL DIGITAL W CAD W LARA Routine 04/22/2020 12:34 PM CDT Encounter for screening mammogram for malignant neoplasm of breast from Last 3 Months or Most Recently Relevant to Health Maintenance Results * INDIRA SCREENING BILATERAL DIGITAL W CAD W LARA (04/22/2020 12:34 PM CDT) Anatomical Region Laterality Modality breast Bilateral Mammography 04/22/2020 12:0 7 PM CDT Narrative 04/22/2020 4:21 PM CDT - INDIRA SCREENING BILATERAL DIGITAL W CAD W LARA BILATERAL DIGITAL SCREENING MAMMOGRAM WITH CAD WITH MEDIOLATERAL OBLIQUE CRANIOCAUDAL: 04/22/2020 The study was acquired using digital technology and interpreted from soft copy. Current study was also evaluated with ICAD version 7.2. CLINICAL: Routine screening. Patient has no complaints. No personal history of cancer. No family history of breast cancer. Due to patient body habitus, additional images were taken in an effort to obtain adequate breast tissue. COMPARISONS: Comparison is made to exams dated: 04/06/2019 [facility], 04/07/2017, and 03/30/2016 [facility]. BREAST TISSUE:There are scattered fibroglandular densities in both breasts. FINDINGS: There are benign calcifications in both breasts. No significant masses, calcifications, or other findings are seen in either breast. There has been no significant interval change. IMPRESSION: BI-RAD 2 BENIGN There is no mammographic evidence of malignancy. A 1 year screening mammogram is recommended. The patient has been or will be contacted. The patient will be entered into a reminder system with a target due date of 1 year for her next screening exam. Electronically signed by: Israel Dill M.D. /penrad:04/22/2020 15:55:53 Contract Associate: Magdalena Painter RT(R)(M), [facility] letter sent: Normal Exam Reading location: [facility] BI-RADS: 2 Benign Procedure Note Israel Dill MD - 04/22/2020 - INDIRA SCREENING BILATERAL DIGITAL W CAD W LARA BILATERAL DIGITAL SCREENING MAMMOGRAM WITH CAD WITH MEDIOLATERAL OBLIQUE CRANIOCAUDAL: 04/22/2020 The study was acquired using digital technology and interpreted from soft copy. Current study was also evaluated with ICAD version 7.2. CLINICAL: Routine screening. Patient has no complaints. No personal history of cancer. No family history of breast cancer. Due to patient body habitus, additional images were taken in an effort to obtain adequate breast tissue. COMPARISONS: Comparison is made to exams dated: 04/06/2019 [facility], 04/07/2017, and 03/30/2016 [facility]. BREAST TISSUE:There are scattered fibroglandular densities in both breasts. FINDINGS: There are benign calcifications in both breasts. No significant masses, calcifications, or other findings are seen in either breast. There has been no significant interval change. IMPRESSION: BI-RAD 2 BENIGN There is no mammographic evidence of malignancy. A 1 year screening mammogram is recommended. The patient has been or will be contacted. The patient will be entered into a reminder system with a target due date of 1 year for her next screening exam. Electronically signed by: Israel horan/penrad:04/22/2020 15:55:53 Contract Associate: Magdalena Painter RT(R)(M), [facility] letter sent: Normal Exam Reading location: [facility] BI-RADS: 2 Benign Kristy Davison APRN, [facility] IMG MAMMO ORDERABLES Fi nal Result from Last 3 Months or Most Recently Relevant to Health Maintenance Insurance MED[place]ID [place] MED[place]ID [place] Care Teams Trust Operations Assistant Relationship Specialty Start Date End Date Iradia Meraz APRN, [facility] [address] [place] [address] PCP - General Family Medicine 03/23/20 Marciano Hutton MD [address] [place] [address] Family Medicine 02/08/16
--- OUTSIDE RECORDS SUMMARY | 2024-08-26 18:26 | XMS_ITS ---
Care Plan - [facility] Created on: August 26, 2024 ELVIRA WORTHINGTON : 1970 Sex: Female Author Organization [facility] Address [address] [place] [address] Phone Care Team Providers Care Director Risk Name Role Phone KIYA BUITRAGO NP Primary Care Provider [phone] LELA MCCANN, HENRI Jackson Unavailable [phone]
--- OUTSIDE RECORDS SUMMARY | 2024-08-26 18:26 | XMS_ITS | Clinical Summary ---
Author Organization [facility] Address [address] [place] [address] Care Team Providers Care Sales Ledger Administrator Name Role Phone Jun Jimmy PT Unavailable Unavailable Joelle Whittaker PTA Unavailable Unavailab Iraida Trinh NP Primary Care Provider [phone] Allergies Active Allergy Reactions Criticality Noted Date Comments Codeine Itching Low Medications fexofenadine (SVITLANA ALLERGY) 60 mg tablet 60 mg. 0 0 6 Active gabapentin (NEURONTIN) 100 mg capsule 100 mg. 0 0 6 Active Additional Information Patient not taking.Reported on 07/21/2023 vitamin K2 40 mcg tablet 40 mcg. 0 0 6 Active Additional Information Patient not taking.Reported on 07/21/2023 prasterone, dhea, (DHEA) 25 mg capsule 25 mg. 0 0 6 Active Additional Information Patient not taking.Reported on 07/21/2023 fluticasone (FLOVENT DISKUS) 50 mcg/actuation diskus inhaler 50 mcg. 0 0 6 Active Additional Information Patient not taking.Reported on 07/21/2023 cholecalciferol (VITAMIN D3) 400 unit capsule 0 [address] (NexIUM) 40 mg capsule 40 mg. 0 0 4 Active Additional Information Patient not taking.Reported on 07/21/2023 levothyroxine sodium (TIROSINT) 25 mcg capsule 25 mcg. 0 0 4 Active montelukast (SINGULAIR) 10 mg tablet Take 1 tablet (10 mg total) by mouth daily Active hydrOXYzine (ATARAX) 50 mg tablet TAKE 1 TABLET(S) 4 TIMES A DAY BY ORAL ROUTE NEEDED. 6 Active escitalopram (LEXAPRO) 20 mg tablet Take 1 tablet (20 mg total) by mouth daily 3 Active miconazole 2 % cream Apply topically 2 (two) times a day 28.35 g 4 Active Active Problems Problem Noted Date Diagnosed Date Gastroesophageal reflux disease 11/16/2013 Overview (10/05/2016): ESOPHAGEAL REFLUX Surgical History Surgery Date Site/Laterality Comments OTHER SURGICAL HISTORY Lap ovarian cyst removed OTHER SURGICAL HISTORY section X 2 OTHER SURGICAL HISTORY 2010 laparoscopic cholecystectomy 04/11 SECTION x 2 CHOLECYSTECTOMY Cholecystectomy Medical History Medical History Date Comments Depression Depression Gastroesophageal reflux disease GERD Disorder of thyroid Thyroid dise ase Multiple sclerosis (HCC) MS; Com ments: SAB 07/01/2014 - Family History Medical History Relation Name Comments Diabetes Father Diabetes mellit us; Heart disease Father Heart disease; Hypertension Mother Hypertension; Relation Name Status Comments Father Mother Social History Tobacco Use Types Packs/Day Years Used Date Smoking Tobacco: Former Smokeless Tobacco: Never Tobacco Cessation:Counseling Given: Not Answered Alcohol Use Standard Drinks/Week Comments No 0 (1 standard drink = 0.6 oz pur e alcohol) Personal Safety Answer Date Recorded Have you ever been in or are you currently in a harmful physical or emotional relationship or is someone making you feel afraid or unsafe? 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 Gender Identity Not on file Sexual Orientation Not on file Obstetrics History Last Filed Vital Signs Vital Sign Reading Time Taken Comments Blood Pressure 143/71 12/23/2023 2:24 PM CDT Pulse 74 12/23/2023 2:24 PM CDT Temperature 36.7 C (98 F) 12/23/2023 2:24 PM CDT Respiratory Rate 15 12/23/2023 2:24 PM CDT Oxygen Saturation 100% 12/23/2023 2:24 PM CDT Inhaled Oxygen Concentration - - Weight 64.9 kg (143 lb) 12/23/2023 2:24 PM CDT Height 149.9 cm (4' 11 ) 12/23/2023 2:24 PM CDT Body Mass Index 28.88 12/23/2023 2:24 PM CDT Plan of Treatment Health Maintenance Due Date Last Done Comments Cervical Cancer Screening 1969 Colon Cancer Screening-Colonoscopy 1969 Depression Screening 1969 Hepatitis C Screening 1969 Hepatitis B Screening 11/16/1987 Regular Well Visit/Exam 18-64 11/16/1987 DTaP/Tdap/Td Vaccine (2 - Td or Tdap) 07/17/2017 07/17/2007 Zoster Vaccine (1 of 2) 11/16/2019 Breast Cancer Screening-Mammogram 04/22/2021 04/22/2020, 04/22/2020, 04/06/2019, Additional history exists Covid-19 Vaccine ( season) 2024 07/01/2022, 12/08/2020, 11/17/2020 Influenza Vaccine (#1) 2024 Pneumococcal vaccine <65 Aged Out No longer eligible based on patient's age to complete this topic Procedures Procedure Name Priority Date/Time Associated Diagnosis Comments MAMMOGRAPHY, TOMOGRAPHY, BILATERAL Routine 04/07/2017 3:22 PM CDT from Last 3 Months or Most Recently Relevant to Health Maintenance Results * MAMMOGRAPHY, TOMOGRAPHY, BILATERAL (04/07/2017 3:22 PM CDT) Anatomical Region Laterality Modality Breast Bilateral Mammography 04/07/2017 3:22 PM CDT Narrative 04/07/2017 3:22 PM CDT SCREENING MAMM W LARA BI Acc#: [id number] DATE OF EXAM: Apr 07 2017 SCREENING MAMM W LARA BI HISTORY: SCRN. TECHNIQUE: 2 views of each breast were obtained with bilateral breast tomosynthesis. COMPARISON: 03/22/2016. FINDINGS: Scattered parenchymal densities bilaterally. No suspicious mass or calcification is seen to suggest mammographic evidence of malignancy. Digital technology was employed plus computer aided detection software (R2) was utilized in interpretation of these images. This facility utilizes a reminder system to notify patient's of yearly mammograms. IMPRESSION: 1. NO DEFINITIVE MAMMOGRAPHIC EVIDENCE OF MALIGNANCY. 2. ANNUAL FOLLOW-UP RECOMMENDED. BI-RADS 1 Electronically signed by: Sirisha Mirza M.D Interpreting Physician: SIRISHA MIRZA M.D. Read on: Apr 07 2017 10:22A Transcribed by: [facility] On: Apr 07 2017 10:20A Approved Electronically by: SIRISHA MIRZA M.D. on: Apr 07 2017 10:20A Ordering DR: KRISTY NinoALVA) IZZY Attending DR: DR HENRI VOGEL Attending: DR HENRI VOGEL Requesting: KRISTY DAVISON ([facility]) Requesting Attending Attending ID: [id number] Requesting ID: [id number] Report To 1 ID: [id number] Report To 1 Name: KRISTY DAVISON ([facility]) Report To 1 FAX: [phone] NextGen Order #: Procedure Note Miscellaneous, Not In File / Provider, MD Yeni - 04/10/2017 SCREENING MAMM W LARA BI Acc#: [id number] DATE OF EXAM: Apr 07 2017 SCREENING MAMM W LARA BI HISTORY: SCRN. TECHNIQUE: 2 views of each breast were obtained with bilateral breast tomosynthesis. COMPARISON: 03/22/2016. FINDINGS: Scattered parenchymal densities bilaterally. No suspicious mass or calcification is seen to suggest mammographic evidence of malignancy. Digital technology was employed plus computer aided detection software (R2) was utilized in interpretation of these images. This facility utilizes a reminder system to notify patient's of yearly mammograms. IMPRESSION: 1. NO DEFINITIVE MAMMOGRAPHIC EVIDENCE OF MALIGNANCY. 2. ANNUAL FOLLOW-UP RECOMMENDED. BI-RADS 1 Electronically signed by: Sirisha Mirza M.D Interpreting Physician: SIRISHA MIRZA M.D. Read on: Apr 07 2017 10:22A Transcribed by: [facility] On: Apr 07 2017 10:20A Approved Electronically by: SIRISHA MIRZA M.D. on: Apr 07 2017 10:20A Ordering DR: KRISTY KEITH) IZZY Attending DR: DR HENRI VOGEL Attending: DR HENRI VOGEL [facility]ing: [facility] Requesting Attending Attending ID: [id number] Requesting ID: [id number] Report To 1 ID: [id number] Report To 1 Name: [facility] Report To 1 FAX: [phone] NextGen Order #: Kristy Davison PERCH MACHINE INSPECTOR IMG MAMMO PROCEDURES Edited Re sult - Final from Last 3 Months or Most Recently Relevant to Health Maintenance Insurance [facility] Member Subscriber Plan / Payer ( fective 2017-Present) Name:Ana Sanchez Relation to Subscriber:Self Name:Ana Sanchez Dodie Payer ID:[id number] (NAIC) Group ID:Not on file Type:MEDICAID RISK OTHER Address: [place] [id number] [facility] Care Teams Sales Ledger Administrator Relationship Specialty Start Date End Date Iraida Meraz NP [address] [place] [address] PCP - General Nurse Practitioner 03/17/23 Jimmy Barahona, PT Physical Therapist Physical Therapy 02/13/18 Joelle Whittaker FLOWER SHOP MANAGER Physical Therapist Physical Therapy 02/28/18
--- OUTSIDE RECORDS SUMMARY | 2024-08-26 18:26 | XMS_ITS | Data Portability ---
Author Organization [facility] JASONGerson Address [address] [place] [address] Care Team Providers Care Equine Breeder Name Role Phone JUANCHOJEMIMA SANDOVALNA OTHER JASE MAGANA OTHER IRAIDA GARCIA Primary Care Provider Assessment No assessment recorded. Plan of Treatment Reminders Order Date Submit Date Provider Last Modified By Organization Details Last Modified Time Details Appointments None recorded . Lab TSH, ultra-se nsitive, serum 2023 024 D[facility]ART [facility], [address], [place], [address], 4 16:13:00 CMP, serum or plasma 2023 024 [facility], [address], [place], [address], 4 16:12:59 lipid panel, serum 2023 024 [facility], [address], [place], [address], 4 16:12:58 CBC 2023 024 DYS[facility], [address], [place], [address], 4 16:13:01 vitamin D, 25-hydro xy, total, serum 2023 024 [facility], [address] [facility], [facility] [address], [place], [address], 4 16:13:02 TSH, ultra-se nsitive, serum 2023 024 DYS[facility], [address] [facility], [facility], [place], [address], 4 11:42:36 noninvas adri colorect al cancer DNA + occult blood screenin g, QL, stool 2022 023 DYSART [facility] (Cologuard Orders Only), [address], [address], [place], [address], 3 10:08:07 Referral None recorded . Procedures None recorded . Surgeries None recorded . Imaging MAMMO, screenin g, digital, bilatera l 2022 023 [facility], [address] [place], [address], 3 10:54:05 Medication Orders monteluk ast 10 mg tablet 2023 024 [facility] #33623, [address] [place], [place], [id number], 4 15:13:35 Vitamin D3 125 mcg (5,000 unit) tablet 2023 024 [facility] #41867, [address], [place], [id number], 4 15:13:50 famotidi ne 20 mg tablet 2023 024 [facility] #73678, [address], [place], [id number], 4 15:13:44 Synthroi d 125 mcg tablet 2023 024 [facility] #07748, [address], [place], [id number], 4 15:13:37 escitalo pram 20 mg tablet 2023 024 [facility] #09359, [address], [place], [id number], 4 15:13:37 monteluk ast 10 mg tablet 2023 024 [facility] #78039, [address], [place], [id number], 4 11:42:04 fluticas one propiona te 50 mcg/actu ation nasal spray,cabrera spension 2023 024 [facility] #31415, [address], [place], [id number], 4 11:42:07 cefdinir 300 mg capsule 2023 024 [facility] #93001, [address], [place], [id number], 4 14:46:05 Vitamin D3 125 mcg (5,000 unit) tablet 2023 024 [facility] #23809, [address], [place], [id number], 4 11:42:04 famotidi ne 20 mg tablet 2023 024 [facility] #72395, [address], [place], [id number], 4 11:42:06 Synthroi d 150 mcg tablet 2023 024 [facility] #34397, [address], [place], [id number], 4 14:46:27 escitalo pram 20 mg tablet 2023 024 [facility] #66543, [address], [place], [id number], 4 11:42:06 monteluk ast 10 mg tablet 2022 023 [facility] #09497, [address], [place], [id number], 3 17:16:33 Vitamin D3 125 mcg (5,000 unit) tablet 2022 023 [facility] #58311, [address], [place], [id number], 3 17:16:28 famotidi ne 20 mg tablet 2022 023 [facility] #52425, [address], [place], [id number], 3 17:16:29 Synthroi d 150 mcg tablet 2022 023 [facility] #03319, [address], [place], [id number], 4 14:46:15 escitalo pram 20 mg tablet 2022 023 [facility] #55048, [address], [place], [id number], 3 17:16:31 monteluk ast 10 mg tablet 2022 023 [facility] #06753, [address], [place], [id number], 3 10:00:58 amoxicil cem 500 mg capsule 2022 023 [facility] #21052, [address], [place], [id number], 3 16:49:28 fluconaz ole 150 mg tablet 2022 023 [facility] #47893, [address], [place], [id number], 4 11:28:21 neomycin -polymyx in-hydro ashley 3.5 mg-10,00 0 unit/mL- 1 % ear drops,cabrera sp 2021 022 [email or web address] [facility] #44478, [address], [place], [id number], 3 09:47:54 Medrol (Sudhir) 4 mg tablets in a dose pack 2021 022 [email or web address] [facility] #64494, [address], [place], [id number], 3 09:47:49 Patient TargetsNo targets recorded. Patient Instructions Encounter Date Encounter Id Patient Instructions Last Modified By Organization Details Last Modified Time 04/20/2022 [id number] A healthy lifest yle: care instructions Not available 04/20/2022 21:42:07 upper respirator y infection (cold): care instructions Not available 04/20/2022 12:39:05 Take all antibio tics prescribed to you. If any fever or increase in pain, call/return to office. Not available 04/20/2022 21:43:23 keep f/u as planned Not availa ble 04/20/2022 21:43:50 11/01/2022 [id number] A healthy lifest yle: care instructions Not available 11/01/2022 10:00:48 Acute Sinusitis: Care Instructions Not available 11/01/2022 10:00:48 vaginal yeast infection: care instructions Not available 11/01/2022 10:00:48 learning about m ood disorders Not available 11/01/2022 10:22:15 Take all antibio tics prescribed to you. If any fever or increase in pain, call/return to office. Not available 11/01/2022 10:01:12 make regular exa m apt, no more than 2-3 months Not available 11/01/2022 10:20:10 02/08/2023 [id number] multiple scleros is (MS): care instructions Not available 02/08/2023 17:16:22 handicap placard* Not availabl e 02/08/2023 17:16:22 When You Want to Lose Weight: Care Instructions Not available 02/08/2023 17:16:22 learning about breast cancer screening Not available 02/08/2023 17:16:21 gastroesophageal reflux disease (GERD): care instructions Not available 02/08/2023 17:16:21 learning about m ood disorders Not available 02/08/2023 17:16:22 Increase intake of fresh fruits, and vegetables. Avoid packaged foods and fast foods. Follow a low salt diet, drink at least 8-10 8oz glasses of water a day, exercise most days of the week. Take all medications as prescribed. Keep appointments with PCP and all specialists. Not available 02/08/2023 17:16:45 follow up in 6 months Not available 02/08/2023 17:17:02 08/17/2023 [id number] Acute Sinusitis: Care Instructions Not available 08/17/2023 11:43:42 multiple scleros is (MS): care instructions Not available 08/17/2023 11:41:25 When You Want to Lose Weight: Care Instructions Not available 08/17/2023 11:41:25 gastroesophageal reflux disease (GERD): care instructions Not available 08/17/2023 11:41:26 learning about m ood disorders Not available 08/17/2023 11:41:25 Increase intake of fresh fruits, and vegetables. Avoid packaged foods and fast foods. Follow a low salt diet, drink at least 8-10 8oz glasses of water a day, exercise most days of the week. Take all medications as prescribed. Keep appointments with PCP and all specialists. Not available 08/17/2023 11:27:15 follow up in 6 months Not available 08/17/2023 11:27:17 01/16/2024 [id number] multiple scleros is (MS): care instructions [facility] Not available 01/16/2024 15:13:15 handicap placard information Not available 01/16/2024 15:13:15 Increase intake of fresh fruits, and vegetables. Avoid packaged foods and fast foods. Follow a low salt diet, drink at least 8-10 8oz glasses of water a day, exercise most days of the week. Take all medications as prescribed. Keep appointments with PCP and all specialists. [facility] Not available 01/16/2024 15:29:26 f/u 6 months DWP barriers to care: none Not available 01/16/2024 15:26:26 Reason for Referral None Reported. Results Created Date Observation Date Name Description Value Unit Range Abnormal Flag Note LastModifiedBy Organization Detail LastModifiedTime 02/28/20 23 02/27/2023 COLOG UARD cologuard result reportable Positi ve negati ve abnormal POSIT ADRI TEST RESUL T. A posit adri Colog uard resul t shoul d be follo wed with a colon oscop y or visua l exami natio n of the colon . The sofia l value (refe rence range ) for this assay is negat adri. TEST DESCR IPTIO N: [place] site algor ithmi c melinda sis of stool DNA-b iomar kers with hemog lobin immun oassa y. Quant itati ve value s of indiv idual bioma rkers are not repor table and are not assoc iated with indiv idual bioma rker resul t refer ence range s. Colog uard is inten ded for color ectal cance r scree talya of adult s of eithe r sex, 45 years or older , who are at [facility] for color ectal cance r (CRC) . Colog uard has been appro david for use by the U.[place]. FDA. The perfo rmanc e of Colog uard was estab lishe d in a cross secti onal study of [facility] adult s aged 50-84 . Colog uard perfo rmanc e in patie nts ages 45 to 49 years was estim ated by sub-g sofiap melinda sis of near- age group s. Colon oscop ies perfo rmed for a posit adri resul t may find as the most clini hope signi fican t lesio n: color ectal cance r [4.0% ], advan alexandru adeno ma (incl uding sessi le adniel diana polyp s great er than or equal to 1cm diame ter) [20%] or non- advan alexandru adeno ma [31%] ; or no color ectal neopl andreas [45%] . These estim ates are deriv ed from a prosp ectiv e cross -sect ional scree talya study of 0 indiv idual s at [facility] for color ectal cance r who were scree walter with both Colog uard and colon oscop y. (Joseph Porter et al, N Engl J Med 2014; 370(1 4):12 86-12 97.) Colog uard may produ ce a false negat adri or false posit adri resul t (no color ectal cance r or preca ncero us polyp prese nt at colon oscop y follo w up). A negat adri Colog uard test resul t does not guara ntee the absen ce of CRC or advan alexandru adeno ma (pre- cance r). The curre nt Colog uard scree talya inter asbina is every 3 years . (Amer ican Cance r Socie ty and U.S. Multi -Soci ety Task Force ). Colog uard perfo rmanc e data in a 0 patie nt pivot al study using colon oscop y as the refer ence metho d [facility]: www.e xactl abs.c om/re sults . Addit ional descr iptio n of the Colog uard test proce ss, warni ngs and preca ution s can be found at www.lenka rodriguez.lenka om. Not Available [facility] (Cologuard Orders Only) [address], [place], [address], 03/05/2023 10:08:07 08/29/19 24 08/30/2023 LIPID PANEL cholesterol, total 209 mg/dL 100-19 9 above high normal Not Available [facility] ([facility]) [address] [place], [address], 08/30/2023 16:12:58 08/29/19 24 08/30/2023 LIPID PANEL triglyceride s 137 mg/dL 0-149 Not Available [facility] ([facility]) [address] [place], [address], 08/30/2023 16:12:58 08/29/19 24 08/30/2023 LIPID PANEL HDL cholesterol 49 mg/dL >39 Not Available [facility] ([facility]) [address] [place], [address], 08/30/2023 16:12:58 08/29/19 24 08/30/2023 LIPID PANEL VLDL cholesterol emily 25 mg/dL 5-40 Not Available [facility] ([facility]) [address] [place], [address], 08/30/2023 16:12:58 08/29/19 24 08/30/2023 LIPID PANEL LDL chol calc ([facility]) 135 mg/dL 0-99 above high normal Not Available [facility] ([facility]) [address] [place], [address], 08/30/2023 16:12:58 08/29/19 24 08/30/2023 COMP. METAB OLIC PANEL (14) glucose 76 mg/dL 70-99 Not Available [facility] ([facility]) [address] [facility] [place], [address], 08/30/2023 16:12:59 08/29/19 24 08/30/2023 COMP. METAB OLIC PANEL (14) BUN 11 mg/dL 6-24 Not Available [facility] ([facility]) [address] [place], [address], 08/30/2023 16:12:59 08/29/19 24 08/30/2023 COMP. METAB OLIC PANEL (14) creatinine 0.70 mg/dL 0.57-1 .00 Not Available [facility] ([facility]) [address] [facility] [place], [address], 08/30/2023 16:12:59 08/29/19 24 08/30/2023 COMP. METAB OLIC PANEL (14) eGFR 103 mL/mi n/1.7 3 >59 Not Available [facility] ([facility]) [address] [facility] [place], [address], 08/30/2023 16:12:59 08/29/19 24 08/30/2023 COMP. METAB OLIC PANEL (14) BUN/creatini ne ratio 16 9-23 Not Available [facility] ([facility]) [address] [facility] [place], [address], 08/30/2023 16:12:59 08/29/19 24 08/30/2023 COMP. METAB OLIC PANEL (14) sodium 139 mmol/ L 134-14 4 Not Available [facility] ([facility]) [address] [facility] [place], [address], 08/30/2023 16:12:59 08/29/19 24 08/30/2023 COMP. METAB OLIC PANEL (14) potassium 4.4 mmol/ L 3.5-5. 2 Not Available [facility] ([facility]) [address] [facility] [place], [address], 08/30/2023 16:12:59 02/27/20 24 08/30/2023 COMP. METAB OLIC PANEL (14) chloride 101 mmol/ L 96-106 Not Available [facility] ([facility]) [address] [facility] [place], [address], 08/30/2023 16:12:59 08/29/19 24 08/30/2023 COMP. METAB OLIC PANEL (14) carbon dioxide, total 22 mmol/ L 20-29 Not Available [facility] ([facility]) [address] [facility] [place], [address], 08/30/2023 16:12:59 08/29/19 24 08/30/2023 COMP. METAB OLIC PANEL (14) calcium 9.4 mg/dL 8.7-10 .2 Not Available [facility] ([facility]) [address] [facility] [place], [address], 08/30/2023 16:12:59 08/29/19 24 08/30/2023 COMP. METAB OLIC PANEL (14) protein, total 7.2 g/dL 6.0-8. 5 Not Available [facility] ([facility]) [address] [facility] [place], [address], 08/30/2023 16:12:59 08/29/19 24 08/30/2023 COMP. METAB OLIC PANEL (14) albumin 4.0 g/dL 3.8-4. 9 Not Available [facility] ([facility]) [address] [facility] [place], [address], 08/30/2023 16:12:59 08/29/19 24 08/30/2023 COMP. METAB OLIC PANEL (14) globulin, total 3.2 g/dL 1.5-4. 5 Not Available [facility] ([facility]) [address] [facility] [place], [address], 08/30/2023 16:12:59 08/29/19 24 08/30/2023 COMP. METAB OLIC PANEL (14) A/G ratio 1.3 1.2-2. 2 Not Available [facility] ([facility]) [address] [facility] [place], [address], 08/30/2023 16:12:59 08/29/19 24 08/30/2023 COMP. METAB OLIC PANEL (14) bilirubin, total 0.5 mg/dL 0.0-1. 2 Not Available [facility] ([facility]) [address] [place], [address], 08/30/2023 16:12:59 08/29/19 24 08/30/2023 COMP. METAB OLIC PANEL (14) alkaline phosphatase 91 IU/L 44-121 Not Available [facility] ([facility]) [address] [facility] [place], [address], 08/30/2023 16:12:59 08/29/19 24 08/30/2023 COMP. METAB OLIC PANEL (14) AST (SGOT) 13 IU/L 0-40 Not Available [facility] ([facility]) [address] [place], [address], 08/30/2023 16:12:59 08/29/19 24 08/30/2023 COMP. METAB OLIC PANEL (14) ALT (SGPT) 11 IU/L 0-32 Not Available [facility] ([facility]) [address] [place], [address], 08/30/2023 16:12:59 08/29/19 24 08/30/2023 TSH RFX ON ABNOR MAL TO FREE T4 TSH 0.012 uIU/m L 0.450- 4.500 below low normal Not Available [facility] ([facility]) [address] [place], [address], 08/30/2023 16:13:00 08/29/19 24 08/30/2023 T4F T4,free (direct) 1.96 NG/dL 0.82-1 .77 above high normal Not Available [facility] ([facility]) [address] [facility] [place], [address], 08/30/2023 16:13:00 08/29/19 24 08/30/2023 CBC, NO DIFFE RENTI AL/PL ATELE T WBC 9.8 x10e3 /uL 3.4-10 .8 Not Available [facility] ([facility]) [address] [facility] [place], [address], 08/30/2023 16:13:01 08/29/19 24 08/30/2023 CBC, NO DIFFE RENTI AL/PL ATELE T RBC 4.90 x10e6 /uL 3.77-5 .28 Not Available [facility] ([facility]) [address] [facility], [place], [address], 08/30/2023 16:13:01 08/29/19 24 08/30/2023 CBC, NO DIFFE RENTI AL/PL ATELE T hemoglobin 14.9 g/dL 11.1-1 5.9 Not Available [facility] ([facility]) [address] [place], [address], 08/30/2023 16:13:01 08/29/19 24 08/30/2023 CBC, NO DIFFE RENTI AL/PL ATELE T hematocrit 44.4 % 34.0-4 6.6 Not Available [facility] ([facility]) [address] [place], [address], 08/30/2023 16:13:01 08/29/19 24 08/30/2023 CBC, NO DIFFE RENTI AL/PL ATELE T MCV 91 fL 79-97 Not Available [facility] ([facility]) [address] [place], [address], 08/30/2023 16:13:01 08/29/19 24 08/30/2023 CBC, NO DIFFE RENTI AL/PL ATELE T MCH 30.4 pg 26.6-3 3.0 Not Available [facility] ([facility]) [address] [facility] [place], [address], 08/30/2023 16:13:01 08/29/19 24 08/30/2023 CBC, NO DIFFE RENTI AL/PL ATELE T MCHC 33.6 g/dL 31.5-3 5.7 Not Available [facility] ([facility]) [address] [facility], [place], [address], 08/30/2023 16:13:01 08/29/19 24 08/30/2023 CBC, NO DIFFE RENTI AL/PL ATELE T RDW 13.4 % 11.7-1 5.4 Not Available [facility] ([facility]) [address] [facility] [place], [address], 08/30/2023 16:13:01 08/29/19 24 08/30/2023 VITAM IN D, 25-HY DROXY vitamin D, 25-hydroxy 42.9 NG/mL 30.0-1 00.0 Vitam in D defic iency has been defin ed by the Insti tute of Medic ine and an Endoc rine Socie ty pract ice guide line as a level of serum 25-OH vitam in D less than 20 ng/mL (1,2) . The Endoc rine Socie ty went [facility] defin e vitam in D insuf ficie ncy as a level betwe en 21 and 29 ng/mL (2). 1. IOM (Inst itute of Medic ine). 2010. Dieta ry refer ence intak es for calci um and D. Lina hunter [place]: [facility] . 2. Sarah hull MF, Nicole noe [place], Silverio off-F rachel i CABRERA, et al. Evalu ation , treat ment, and preve ntion of vitam in D defic iency : an Endoc rine Socie ty clini emily pract ice guide line. JCEM. 2010; 96(7) :1911 -30. Not Available [facility] ([facility]) [address], [place], [address], 08/30/2023 16:13:02 10/11/19 23 10/09/2022 XR, chest , 2 view No observ ation record ed. [email or web address] [facility] [address], [place], [address], 10/10/2022 15:59:33 08/26/19 25 08/26/2024 imagi ng/di agnos tic resul t No observ ation record ed. [facility] [address], [place], [address], 08/26/2024 18:16:24 Result Notes None recorded. Problems Name Problem SNOMED Code Status Onset Date Resolution Date Notes Provider Name and Address Organization Details Recorded Time Adult health examinat ion Completed 201903/19/2020 Iraida Garcia APN, FNP-C Attn: Accounting ,[address] [place], [address] , [facility] 10:17:41 Gastroes ophageal reflux disease without esophagi tis 234059901 Active Mohini Butler RN null, [facility] 0 12:57:55 Mood disorder 82348339 Active 2020 Iraida Garcia APN, FNP-C Attn: Accounting ,[address] [place], [address] , [facility] 1 15:20:19 Migraine 06097513 Active 2021 Iraida Garcia APN, FNP-C Attn: Accounting ,[address] [place], [address] , [facility] 2 14:56:21 Difficul ty cutting own fingerna [facility] 149487360 Active 2021 Iraida Garcia APN, FNP-C Attn: Accounting ,[address] [place], [address] , [facility] 2 15:48:06 Obesity 298814210 Active 2021 Iraida Garcia APN, JASVIR Attn: Accounting ,[address] [place], [address] , [place] [facility] 2 21:43:17 Vitamin D deficien cy 00624108 Active 2023 Iraida Garcia APN, JASVIR Attn: Accounting ,[address] [facility], [place], [address] , [place] [facility] 4 11:41:14 Multiple sclerosi s 83156893 Active Was seeing Dr Juancho Garcia APN, JASVIR Attn: Accounting ,[address] [place], [address] , [place] [facility] 0 10:19:45 Hypothyr oidism 39253342 Active Marciano Hutton null, [place] [facility] 6 14:41:51 Onychomy cosis of toenails 361772310 Completed 09/10/2019 Li Anamaria [place], [place] [facility] 0 10:12:22 Onychomy cosis of fingerna ils Completed 09/10/2019 Li [place] [facility] 0 10:12:19 Shoulder strain 026491762 Completed 09/10/2019 Li [place] [facility] 0 10:12:25 Allergic rhinitis 28197439 Active Marciano [place] [facility] 6 11:45:13 Acute sinusiti s 59899921 Completed 09/10/2019 Li [place] [facility] 0 10:12:07 Increase d frequenc y of urinatio n 766681779 Completed 09/10/2019 Li [place] [facility] 0 10:12:13 Insomnia 415388458 Completed 09/10/2019 Li [place] [facility] 0 10:12:15 Acute urinary tract infectio n 646512348 Completed 09/10/2019 Li martinez, [place] - [facility] 0 10:12:09 Problem Notes None recorded. Procedures Surgical History Date Name Laterality Status Provider Name and Address Organization Details Recorded Time 04/06/20 19 Date of Last Mammogram completed Janine Martinez MA [facility] 08/18/2021 14:43:27 07/03/19 10 Cholecystectomy completed Vandana Johnson LPN [facility] 04/15/2015 11:26:31 07/03/19 06 Tubal Ligation completed Vandana Johnson LPN [facility] 04/15/2015 11:26:31 Caesarean Section completed Vandana Johnson LPN [facility] 04/15/2015 11:26:31 Imaging Results Imaging Date Name Status LastModified by Organiz ation Details LastModified Time 10/09/2022 XR, chest, 2 view completed [email or web address] [facility] [address], [place], [address], 10/10/2022 15:59:33 08/26/2024 imaging/diag nostic result active [address], [place], [address], 08/26/2024 18:16:24 Procedure Notes None recorded. Medical Equipment None Reported. Allergies Allergen ID Allergen Name Allergen Category Reaction Reaction Severity Criticality Documentation Date Start Date Code Code System Note Provider Name and Address Organization Details Recorded Time 80869 codeine medicatio n itching Not available Not available 05/05/2016 6360 RxNorm Not Available Not Available Not Available Medications Name Sig Start Date Stop Date Status Note LastModified by Organization Details LastModified Time cyclobenz aprine 10 mg tablet Take 1 tablet 3 times a day by oral route as needed. 02/26 completed Pt states not taking Not Available Not Available Not Available amoxicill in 500 mg capsule TAKE 1 CAPSULE BY MOUTH EVERY 8 HOURS FOR 10 DAYS 02/08 completed Not Available Not Available Not Available doxycycli ne hyclate 100 mg capsule Take 1 capsule twice a day by oral route for 10 days. 10/26 completed Not Available Not Available Not Available paroxetin e 10 mg tablet TAKE 1 TABLET(S ) EVERY DAY BY ORAL ROUTE. 02/26 completed Not Available Not Available Not Available clindamyc in HCl 300 mg capsule Take 1 capsule every 8 hours by oral route for 10 days. 07/06 completed Not Available Not Available Not Available azithromy daya 250 mg tablet TAKE 1 TABLET BY MOUTH EVERY DAY 11/01 completed Not Available Not Available Not Available miconazol e nitrate 2 % topical cream APPLY TOPICALL Y TO THE AFFECTED AREA TWICE DAILY active Not Available Not Available No t Available ibuprofen 800 mg tablet TAKE 1 TABLET BY MOUTH THREE TIMES DAILY NEEDED FOR PAIN 08/17 completed Not Available Not Available Not Available fluconazo le 150 mg tablet TAKE 1 TABLET BY MOUTH DIRECTED 08/17 completed Not Available Not Available Not Available Synthroid 150 mcg tablet TAKE 1 TABLET BY MOUTH EVERY DAY active Not Available Not Available No t Available Synthroid 125 mcg tablet TAKE 1 TABLET BY MOUTH EVERY DAY IN THE MORNING active Not Available Not Available No t Available prednison e 20 mg tablet Take 3 tablets by mouth x 2 days, then take 2 tablets by mouth x 2 days then take 1 tablet by mouth x 2 days 02/26 completed Not Available Not Available Not Available topiramat e 25 mg tablet TAKE 1 TABLET BY MOUTH EVERY DAY AT BEDTIME 11/01 completed Not Available Not Available Not Available Zyrtec 10 mg tablet Take 1 tablet every day by oral route. 02/26 completed Not Available Not Available Not Available hydroxyzi ne HCl 50 mg tablet TAKE 1 TABLET(S ) 4 TIMES A DAY BY ORAL ROUTE NEEDED. 02/26 completed Pt states not taking Not Available Not Available Not Available tramadol 50 mg tablet 09/10 completed Not Available Not Available Not Available Macrobid 100 mg capsule Take 1 capsule every 12 hours by oral route. 02/07 completed Not Available Not Available Not Available levothyro xine 100 mcg tablet TAKE 1 TABLET BY MOUTH EVERY DAY 01/26 completed Not Available Not Available Not Available terbinafi ne HCl 250 mg tablet TAKE 1 TABLET(S ) EVERY DAY BY ORAL ROUTE DIRECTED . 09/10 completed Not Available Not Available Not Available famotidin e 20 mg tablet TAKE 2 TABLETS BY MOUTH EVERY DAY AT BEDTIME active Not Available Not Available No t Available Vitamin C 1,000 mg tablet Take 1 tablet every day by oral route as directed . 08/17 completed Not Available Not Available Not Available nystatin 100,000 unit/gram topical cream APPLY EXTERNAL LY TO THE AFFECTED AREA THREE TIMES DAILY DIRECTED 11/01 completed Not Available Not Available Not Available ranitidin e 150 mg tablet Take 1 tablet twice a day by oral route. 09/09 completed Not Available Not Available Not Available gabapenti n 300 mg capsule Take 1 capsule 3 times a day by oral route. 04/13 completed Not Available Not Available Not Available omeprazol e 20 mg capsule,d elayed release Take by oral route for 30 days. 11/01 completed Not Available Not Available Not Available monteluka st 10 mg tablet TAKE 1 TABLET BY MOUTH EVERY DAY active Not Available Not Available No t Available diclofena c sodium 50 mg tablet,de layed release TAKE 1 TABLET BY MOUTH THREE TIMES DAILY 08/17 completed Not Available Not Available Not Available methylpre dnisolone 4 mg tablets in a dose pack FOLLOW PACKAGE DIRECTIO NS 11/01 completed Not Available Not Available Not Available cefdinir 300 mg capsule TAKE 1 CAPSULE BY MOUTH EVERY 12 HOURS FOR 10 DAYS 01/15 completed Not Available Not Available Not Available fluticaso ne propionat e 50 mcg/actua tion nasal spray,isidro pension SHAKE LIQUID AND USE 1 SPRAY IN EACH NOSTRIL EVERY DAY DIRECTED active Not Available Not Available No t Available naproxen 500 mg tablet Take 1 tablet(s ) twice a day by oral route as needed. 02/26 completed Not Available Not Available Not Available levothyro xine 112 mcg tablet 1 tablet po daily 02/26 completed Not Available Not Available Not Available amoxicill in 875 mg-potass ium clavulana te 125 mg tablet TAKE 1 TABLET BY MOUTH TWICE DAILY FOR 7 DAYS 08/17 completed Not Available Not Available Not Available magnesium 250 mg (as magnesium oxide) tablet Take 1 tablet every day by oral route. 09/09 completed Not Available Not Available Not Available neomycin- polymyxin -hydrocor t 3.5 mg-10,000 unit/mL-1 % ear drops,isidro p SHAKE LIQUID AND INSTILL 4 DROPS TO AFFECTED EAR THREE TIMES DAILY 11/01 completed Not Available Not Available Not Available escitalop fracisco 10 mg tablet TAKE 1 TABLET BY MOUTH EVERY DAY 02/08 completed Not Available Not Available Not Available escitalop fracisco 20 mg tablet TAKE 1 TABLET BY MOUTH EVERY DAY active Not Available Not Available No t Available Synthroid 137 mcg tablet TAKE 1 TABLET BY MOUTH EVERY DAY 11/01 completed Not Available Not Available Not Available Super B Complex-V itamin C tablet Take 1 tablet every day by oral route. 09/15 completed Not Available Not Available Not Available escitalop fracisco 5 mg tablet TAKE 1 TABLET BY MOUTH EVERY DAY 02/08 completed Not Available Not Available Not Available Vitamin B-12 one tablet daily 02/[address] Frazier Not Available Not Available Not Available omeprazol e 03/19 completed OTC Not Available Not Available Not Available Mucinex DM 60 mg-1,200 mg tablet,ex tended release 12 hr Take 1 tablet every 12 hours by oral route as directed . 04/13 completed Not Available Not Available Not Available Vitamin D3 125 mcg (5,000 unit) tablet Take 1 tablet every day by oral route. 2023 active Not Available Not Available Not Avai lable turmeric root extract 500 mg capsule Take by oral route. 09/15 completed Not Available Not Available Not Available vitamin K2 Take 1 softgel daily 09/15 completed Not Available Not Available Not Available Nexium 24HR 09/15 completed Not Available Not Available Not Available Digestive Advantage Prob Gummy 08/17 completed Not Available Not Available Not Available Move Free Joint Health 08/17 completed Not Available Not Available Not Available Fish Oil 1,000 mg (120 mg-180 mg) capsule Take 1 capsule 3 times a day by oral route. 09/15 completed Not Available Not Available Not Available 24 Hour Nasal Allergy 08/17 completed Not Available Not Available Not Available Vitals Date Recorded Body height Body mass index (BMI) Body weight Oxygen saturation Oxygen saturation in Arterial blood by Pulse oximetry Heart rate Respiratory rate Body temperature Systolic blood pressure Diastolic blood pressure Provider Name and Address Organization Details Last Updated DateTime 2 149.86 cm 31.7 kg/m2 03235 g 98 % 98 % 82 /min 16 /min 97.7 [degF] 124 mm[Hg] 86 mm[Hg] Portia Garcia [facility] 2 12:19:13 Date Recorded Body height Body mass index (BMI) Body weight Oxygen saturation Oxygen saturation in Arterial blood by Pulse oximetry Heart rate Respiratory rate Body temperature Systolic blood pressure Diastolic blood pressure Provider Name and Address Organization Details Last Updated DateTime 3 149.86 cm 31.7 kg/m2 65448 g 98 % 98 % 98 /min 16 /min 98 [degF] 112 mm[Hg] 68 mm[Hg] Portia Jose [facility] 3 09:50:29 Date Recorded Body height Body mass index (BMI) Body weight Oxygen saturation Oxygen saturation in Arterial blood by Pulse oximetry Heart rate Respiratory rate Body temperature Systolic blood pressure Diastolic blood pressure Provider Name and Address Organization Details Last Updated DateTime 3 149.86 cm 30 kg/m2 45568.8 3 g 98 % 98 % 81 /min 12 /min 97.3 [degF] 116 mm[Hg] 78 mm[Hg] June Leslie [place] [facility] 3 16:53:29 Date Recorded Body height Body mass index (BMI) Body weight Oxygen saturation Oxygen saturation in Arterial blood by Pulse oximetry Heart rate Respiratory rate Body temperature Systolic blood pressure Diastolic blood pressure Provider Name and Address Organization Details Last Updated DateTime 4 149.86 cm 30.6 kg/m2 44714.2 4 g 97 % 97 % 73 /min 14 /min 97.5 [degF] 136 mm[Hg] 84 mm[Hg] Bethany Cabrales MA [facility] 4 11:11:17 Date Recorded Body height Body mass index (BMI) Body weight Oxygen saturation Oxygen saturation in Arterial blood by Pulse oximetry Respiratory rate Body temperature Heart rate Systolic blood pressure Diastolic blood pressure Provider Name and Address Organization Details Last Updated DateTime 4 149.86 cm 30.1 kg/m2 54363.2 6 g 98 % 98 % 16 /min 98 [degF] 64 /min 130 mm[Hg] 82 mm[Hg] Portiagiselal Garcia, [place] [facility] 4 14:50:25 Social History Question Answer Notes LastModified by Organizat ion Details LastModified Time Tobacco Smoking Status Former Smoker Vandanagay Johnson LPN null, [place] [facility] 04/15/2015 11:26:30 Do You Have An Advance Directive? No Information not available 04/15/2015 What Is Your Level Of Alcohol Consumption? None Information not available 05/05/2021 Are You Blind Or Do You Have Difficulty Seeing? No Glasses Information not available 02/08/2023 What Is Your Level Of Caffeine Consumption? Occasional Information not available 09/15/2020 How Much Tobacco Do You Chew? None Information not available 03/19/2020 In The 14 Days Before Symptom Onset, Have You Had Close Contact With A Laboratory-confir med COVID-19 While That Case Was Ill? No Information not available 03/19/2020 In The 14 Days Before Symptom Onset, Have You Had Close Contact With A Person Who Is Under Investigation For COVID-19 While That Person Was Ill? No Information not available 03/19/2020 Have You Been To An Area Known To Be High Risk For COVID-19? No Information not available 03/19/2020 Are You Currently Employed? No Information not available 01/16/2024 Are You Deaf Or Do You Have Serious Difficulty Hearing? No Some In Both Ears Information not available 02/08/2023 What Type Of Diet Are You Following? REGULAR Information not available 01/16/2024 Which Illicit Or Recreational Drugs Have You Used? Denied Information not available 03/19/2020 Do You Or Have You Ever Used E-cigarettes Or Vape? Never Used Electronic Cigarettes Information not available 03/19/2020 Education 2 Year College Information not available 04/15/2015 Swimming/diving No Informati on not available 04/15/2015 Are There Any Guns Present In Your Home? No Information not available 04/15/2015 Hard Of Hearing Or Deaf In One Or Both Ears? No Information not available 04/15/2015 Legally Blind In One Or Both Eyes? No Information no t available 04/15/2015 Live Alone Or With Others? With Others Information not available 04/15/2015 Marital Status Informatio n not available 03/19/2020 What Was The Date Of Your Most Recent Tobacco Screening? 01/16/2024 Information not available 01/16/2024 How Many Children Do You Have? 2 Information not available 04/15/2015 Performs Monthly Self-breast Exam? Yes Information no t available 03/19/2020 Do You Use Protection During Sex? No Information not available 04/15/2015 What Is Your Relationship Status? Information not available 09/15/2020 Do You Use Your Seat Belt Or Car Seat Routinely? Yes Information not available 09/15/2020 Seat Belts Used Routinely Yes Information not available 04/15/2015 Are You Sexually Active? Yes Information not available 04/15/2015 Smoke Alarm In Home No Information not available 03/19/2020 Do You Have Smoke And Carbon Monoxide Detectors In Your Home? Yes Information not available 09/15/2020 Are You Passively Exposed To Smoke? No Information no t available 09/15/2020 Do You Or Have You Ever Used Smokeless Tobacco? Never Used Smokeless Tobacco Information not available 03/19/2020 How Much Tobacco Do You Smoke? No Information not available 03/19/2020 General Stress Level Medium Information not available 04/15/2015 Do You Feel Stressed (tense, Restless, Nervous, Or Anxious, Or Unable To Sleep At Night)? [id number] Information not available 02/11/2021 Do You Use Any Illicit Or Recreational Drugs? No Information not available 09/15/2020 Do You Use Sunscreen Routinely? Yes Information not available 04/15/2015 Has Tobacco Cessation Counseling Been Provided? No [email or web address] Information not available 08/18/2021 How Many Years Have You Smoked Tobacco? 15 Information not available 03/19/2020 Do You Or Have You Ever Used Any Other Forms Of Tobacco Or Nicotine? No Information not available 09/15/2020 Sex: Unknown Functional Status Question Answer Note LastModified by Organization D etails LastModified Time Are you able to care for yourself? Yes Information n ot available 04/15/2015 What is your exercise level? None Information not available 02/08/2023 Mental Status None recorded. Family History Relationship Description Onset Age of this Age Resolved Age Notes LastModified by Organization Details LastModified Time Mother Alcoholism Not availab le 04/15/2015 11:26:31 Mother Hypertensive disorder Not available 2014 11:26:31 Father Diabetes mellitus Not available 2014 11:26:31 Father Heart disease 58 [email or web address] Not available 2019 10:14:33 Father Hypercholest erolemia Not available 2014 11:26:31 Brother Alcoholism Not availa ble 04/15/2015 11:26:31 Medical History Condition Response Coronary Artery Disease N Other N Atrial Fibrillation N High Blood Pressure N Depression N COPD N Blood Clots N Anxiety Disorder N Muscle, Joint, or Bone Problems N Acid Reflux (GERD) Y Cancer N Stroke N ADHD N High Cholesterol N Liver Disease N Schizophrenia N Headaches N Kidney or Bladder Problems N Thyroid Problems Y GI Problems N Eating Disorder N Skin Problems N Anemia N Heart Attack (CT) N Diabetes N Seizures/Epilepsy N Asthma N Allergies Y Substance Abuse N Hepatitis N Osteoporosis N Heart Failure N Gynecological History Statement/Question Response Date of Last Mammogram 04/06/2019 Flow Menses Monthly N Date of Last Pap Smear Age at Menarche 11 Current Control Method Menopause Age at First Child 30 LMP Definite Obstetrics History GPAL:G 3 P 2 0 1 2 Type Value Full Term 2 Spontaneous 1 Living 2 Total 3 Immunizations Vaccine Type Date Status Note Provider Name and Address Organization Details Recorded Time COVID-19, mRNA, LNP-S, PF, 30 mcg/0.3 mL dose 11/18/19 21 completed Not Available [facility] 03/17/2023 12:21:15 COVID-19, mRNA, LNP-S, PF, 30 mcg/0.3 mL dose 12/09/19 21 completed Not Available [facility] 03/17/2023 12:21:15 COVID-19, mRNA, LNP-S, bivalent, PF, 30 mcg/0.3 mL dose 07/01/20 22 completed Not Available [facility] 03/17/2023 12:21:15 Influenza, split virus, quadrivalent, preservative 05/05/20 21 cancelled patient objection Iraida Garcia APN, CORRESPONDENCE REVIEW CLERK-C Attn: Accounting,[address] [facility], [place], [address], [place] [facility] 05/06/2021 23:02:30 Tdap 07/17/19 08 completed Not Available [facility] 03/17/2023 12:21:15 Past Encounters Encounter ID Performer Location Encounter Start Date Encounter Closed Date Diagnosis/Indication Diagnosis SNOMED-CT Code Diagnosis ICD10 Code Diagnosis Note [id number] Navya Disha [facility] [address] [place] [address] 01/12/2015 15:11:31 01/13/2015 09:33:19 Multiple sclerosis 15493025 Hypothyroidism 11490830 Adult heal th examination [id number] [id number] [facility] (Fam Med) [address] [place] [address] 04/15/2015 10:54:00 04/15/2015 12:01:41 Onychomycosis of toenails 365817255 B35.1 Onychomyco sis of fingernails 485409320 B35.1 severe Hypothyroidism 65545426 E03.9 Multiple sclerosis 65634 007 G35 [id number] Marciano Hutton [facility] (Fam Med) [address] [place] [address] 05/12/2015 09:58:11 05/12/2015 10:29:32 Shoulder strain 101689235 S46.911S [id number] [facility] [address] [place] [address] 09/11/2015 10:44:56 09/11/2015 12:05:35 Allergic rhinitis 90649686 J30.9 Acute sinusitis 55398874 J01.90 [id number] [facility] [address] [place] [address] 04/13/2016 13:44:46 04/13/2016 14:46:08 Increased frequency of urination 142375176 R35.0 random (1 hour post prandial) blood glucose is 143. Will check urine for glucosuria . Insomnia 060640483 G47.0 0 avoid caffeine, reduce stress as possible. Hypothyroidism 06197265 E03.9 patient is due for TSH level check, will defer to her new PCP and she is advised to schedule an appointmen t VINEET for follow up Acute urin agustin tract infection 136595818 N39.0 [id number] SAVANA Garcia ([facility] 205) [address] [place] [address] 05/05/2016 11:23:54 05/05/2016 16:02:26 Hypothyroidism 77723173 E03.9 Counseled on hypothyroi d, lab work and medication . Anxiety 70368866 F41.9 Counseled on anxiety and medication . Encouraged to call for counseling , numbers given. Advised importance of stress reduction- walking, meditation , yoga. Encouraged to seek out help from loved ones and friends to help manage home life. [id number] SAVANA Garcia ([facility] ) [address] [place] [address] 06/06/2016 14:06:33 06/07/2016 08:47:55 Anxiety 13053063 F41.9 Counseled on anxiety and medication -will continue at current dose a this time. Encouraged to call for counseling , numbers given. Advised importance of stress reduction- walking, meditation , yoga. Encouraged to seek out help from loved ones and friends to help manage home life. Will f/u in 2 months. [id number] SAVANA Garcia ([facility] 205) [address] [place] [address] 07/25/2016 11:39:10 07/26/2016 11:53:32 Acute sinusitis 23609289 J01.90 Counseled on sinusitis and medication s/antibiot ic use. Ibuprofen/ Tylenol for pain. Encouraged to increase fluid intake. Humidifier as needed. Nasal saline wash as needed [id number] SAVANA Garcia ([facility] 205) [address] [place] [address] 08/04/2016 09:36:19 08/04/2016 14:03:56 Acute sinusitis 47741630 J01.90 Counseled on sinusitis and medication s/antibiot ic use-will place on Clindamyci n. Ibuprofen/ Tylenol for pain. Encouraged to increase fluid intake. Humidifier as needed. Nasal saline wash as needed. F/u in 7-10 days if no improvemen t [id number] SAVANA Garcia ([facility] 205) [address] [place] [address] 08/16/2016 11:37:39 08/17/2016 10:32:26 Acute sinusitis 11924241 J01.90 Counseled on sinusitis and medication s/antibiot ic use-will place on Clindamyci n. Ibuprofen/ Tylenol for pain. Encouraged to increase fluid intake. Humidifier as needed. Nasal saline wash as needed. F/u in 7-10 days if no improvemen t [id number] SAVANA Garcia ([facility] 205) [address] [place] [address] 02/22/2017 11:15:54 02/24/2017 10:13:18 Hypothyroidism 75691473 E03.9 Counseled on hypothyroi d, lab work and medication -will adjust according to labs. F/u 6 months Obesity 652257060 E66.9 Counseled on weight loss-encou rage heart healthy diet and increasing exercise-p ortion control, decreasing processed foods Onychomycosis 997405101 B35.1 Otalgia 02682348 H92.01 Counseled on ear pain-advis ed to take OTC decongesta nt and Ibuprofen/ Tylenol as needed-if no improvemen t f/u in 1 week. [id number] SAVANA Garcia ([facility] 205) [address] [place] [address] 07/06/2017 15:23:54 07/07/2017 13:44:24 Acute sinusitis 57938012 J01.90 Counseled on sinusitis and will continue meds rx'd by [facility] yesterday- advised to call Monday if no improvemen t or worsening at which time will consider antibiotic therapy at that time. Ibuprofen/ Tylenol for pain. Encouraged to increase fluid intake. Humidifier as needed. Nasal saline wash as needed. Onychomycosis 373269964 B35.1 [id number] SAVANA Garcia ([place] [address]) [address] [place] [address] 07/25/2017 10:33:40 07/25/2017 11:35:36 Acute sinusitis 69658320 J01.90 Counseled on sinusitis and medication -continue flonase, Mucinex -Ibuprofen /Tylenol for pain. Encouraged to increase fluid intake. Humidifier as needed. Nasal saline wash as needed. [id number] SAVANA Garcia ([facility] 205) [address] [place] [address] 09/19/2017 11:26:00 09/19/2017 17:58:20 Hypothyroidism 29226205 E03.9 Counseled on hypothyroi d, lab work and medication -will adjust according to labs. F/u 6 months Body mass index 30+ - obesity 964694469 Z68.35 Elevated blood-pressure reading without diagnosis of hypertension 047456860 R03.0 Advised to monitor blood pressures goal <130/80 if consistent ly above goal [id number] SAVANA Garcia [address] IM [address] [place] [address] 02/07/2018 10:50:08 02/08/2018 10:40:47 Cervical radiculopathy 70080776 M54.12 Counseled on neck pain, medication s as directed- encourage stress management , PT referral Onychomyco sis of fingernails 597256981 B35.1 [id number] SAVANA Garcia 14 IM [address] [facility] [place] [address] 02/26/2019 10:51:16 02/28/2019 10:39:58 Gastroesophageal reflux disease without esophagitis 049946540 K21.9 Counseled on GERD and medication . Encouraged low fat diet, alcohol, spicy greasy foods and caffeinate d beverages. Keep head of bed elevated at night. Do not eat 2-3 hours prior to bedtime. referral to GI due to severity of s/s Hypothyroidism 53057626 E03.9 Counseled on hypothyroi d, lab work and medication -will adjust according to labs. [id number] Li Pardo 14 IM [address] [facility] [facility] [address] [place], [place] [address] [address] 09/10/2019 09:23:14 09/24/2019 09:09:05 Hypothyroidism 30340780 E03.9 Taking levothyrox ine, dose increased from 125mcg to 137mcg in 01/2019. Check TSH. Adult [facility] th examination 455694558 Z00.00 Has GynGot Flu shot Allergic rhinitis 382288 04 J30.9 Stable on Singulair. [id number] Iraida Garcia APN, [facility] (Ad[facility]) [address] [place] [address] 03/19/2020 08:08:34 03/25/2020 23:39:49 Adult health examination 824690198 Z00.01 Encouraged routine [employer] SURVEYING, vision, dental exams, well balanced diet. 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 Allergic rhinitis 247244 04 J30.9 cont montelukas t 10 mg qhs Multiple sclerosis 38287 007 G35 she would like to go back to Dr frazier now that she has insurance On examina tion - nails brittle 588116193 L60.3 dwp will check labs [id number] Iraida Garcia APN, [facility] ([facility]) [address] [place] [address] 09/15/2020 14:47:17 09/18/2020 12:02:46 Hypothyroidism 47262250 E03.9 cont levothyrox ine 100 mcg, Gastroesop hageal reflux disease without esophagitis 854000124 K21.9 was seeing Gi, may need new referral; 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 Allergic rhinitis 139161 04 J30.9 cont montelukas t 10 mg qhs Hyperglycemia 80017930 R 73.9 last a1c was 5.7diet changes advised Screening for malignant neoplasm of colon 598031185 Z12.11 Obesity 146837622 E66.9 advised low fat, low cholestero l diet, regular exercise and weight reduction. [id number] Iraida Garcia APN, [facility] (Adult Med) [address] [place] [address] 05/05/2021 14:17:21 05/07/2021 07:56:13 Influenza vaccination declined 736237050 Z28.21 Hypothyroidism 47508159 E03.9 cont levothyrox ine- increasing dose and will change to brand name since she is not responding well to generic Mood disorder 81450597 F 38 pt with increasing stress, difficulty with spouse, would like to try lexapro, doing better on it but would likt ot increase some, will send additional 5 mg R/B/A/SE of antidepres elieser medication discussed such as gastrointe stinal s/e, mood irritabili ty, Suicidal ideation, risk of thang. Difficulty cutting own fingernails 950093518 Z74.1 left hand with thickened fingernail s, has had this many years, toes also, since pt now has insurance, pt would like to see dermatolog y [id number] Iraida Garcia APN, JASVIR Carrera (Adult Med) [address] [place] [address] 08/18/2021 14:32:05 08/23/2021 07:18:56 Hypothyroidism 15941513 E03.9 cont levothyrox ine- increasing dose and will change to brand name Synthroid since she is not responding well to genericche ck lab to see if improvemen t Mood disorder 55973423 F 38 pt with increasing stress, difficulty with spouse, would like to try lexapro, doing better on it but would likt ot increase some, will send additional 5 mg filing for divorce at some point R/B/A/SE of antidepres elieser medication discussed such as gastrointe stinal s/e, mood irritabili ty, Suicidal ideation, risk of thang. 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 Migraine 86439628 G43.90 9 hx of, having them daily now, will start topiramate 25 mg and refer back to neuro [id number] Iraida Garcia APN, JASVIR Carrera (Adult Med) [address] [place] [address] 01/26/2022 16:07:41 01/27/2022 10:03:18 Sore throat [id number] J02.9 sore throat that started yesterday, covid neg, will also order strep Viral syndrome 360598034 B34.9 dwp viral infections duration and instructed pt to call if symptoms lasting longer than 10 days to 2 weeks Generalize d acute body pains 423550865 R52 flu neg, advised proper hydration Obesity 168632451 E66.9 advised low fat, low cholestero l diet, regular exercise and weight reduction. [id number] Iraida Garcia APN, FNP-C [place] (Adult Med) [address] [place] [address] 04/20/2022 12:09:38 04/26/2022 10:31:10 Acute otitis externa 71390220 H60.509 left ear canal inflamed, start abx drops Acute uppe r respiratory infection 96713132 J06.9 rhonchi clearing with cough, start medrol dose pack Obesity 056760278 E66.9 advised low fat, low cholestero l diet, regular exercise and weight reduction. [id number] Iraida Garcia APN, FNP-C [place] (Adult Med) [address] [place] [address] 11/01/2022 09:40:26 11/02/2022 14:26:42 Acute sinusitis 14829035 J01.90 sinus pressure with purulent drainage, start amox 500 mg TID x 10 days Obesity 043600953 E66.9 advised low fat, low cholestero l diet, regular exercise and weight reduction. Allergic rhinitis 109713 04 J30.9 cont montelukas t 10 mg qhs Candidiasis of vagina 72 508058 B37.31 prone to yeast infections with abx use Mood disorder 12546350 F 38 pt with increasing stress, difficulty with spouse, would like to try lexapro, doing better on it but would likt ot increase some, will send additional 5 mg filing for divorce at some point R/B/A/SE of antidepres elieser medication discussed such as gastrointe stinal s/e, mood irritabili ty, Suicidal ideation, risk of thang. [id number] Iraida Garcia APN, FNP-C [place] (Adult Med) [address] [facility] [address] 02/08/2023 16:41:34 02/15/2023 12:43:20 Mood disorder 12237420 F38 pt with increasing stress, difficulty with spouse, would like to try lexapro, doing better on it but would likt ot increase some, will send 20 mgfiling for divorce at some point R/B/A/SE of antidepres elieser medication discussed such as gastrointe stinal s/e, mood irritabili ty, Suicidal ideation, risk of thang. 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 Allergic rhinitis 498874 04 J30.9 cont montelukas t 10 mg qhs Hypothyroidism 24422759 E03.9 cont levothyrox ine- increasing dose and will change to brand name Synthroid since she is not responding well to genericche ck lab to see if improvemen ttsh high, will increase to 150 mcg Vitamin D deficiency 347 47205 E55.9 cont replacemen t Screening for malignant neoplasm of breast 011056990 Z12.39 Screening for malignant neoplasm of colon 746270245 Z12.11 Thickened nails 52715781 5 Q84.5 dwp proper nail care, declines referral for now [id number] Iraida Garcia APN, CORRESPONDENCE REVIEW CLERK-C [facility] (Adult Med) [address] [place] [address] 08/17/2023 10:48:16 08/22/2023 16:19:36 Mood disorder 50743765 F38 pt with increasing stress, difficulty with spouse, would like to try lexapro, doing better on it but would likt ot increase some, will send 20 mgfiling for divorce at some point R/B/A/SE of antidepres elieser medication discussed such as gastrointe stinal s/e, mood irritabili ty, Suicidal ideation, risk of thang. 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 Acute sinusitis 44028627 J01.90 sinus pressure with purulent drainage, start cefdinir [id number] Iraida Garcia APN, CORRESPONDENCE REVIEW CLERK-C [facility] (Adult Med) [address] [place] [address] 01/16/2024 14:30:54 01/17/2024 14:06:32 Vitamin D deficiency 01778193 E55.9 cont replacemen t Hospital i npatient stay within past 30 days [id number] 106 Z76.89 records reviewed Mood disorder 27298057 F 38 pt with increasing stress, difficulty with spouse, would like to try lexapro, doing better on it but would likt ot increase some, will send 20 mgfiling for divorce at some point R/B/A/SE of antidepres elieser medication discussed such as gastrointe stinal s/e, mood irritabili ty, Suicidal ideation, risk of thang. 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 Allergic rhinitis 034746 04 J30.9 cont montelukas t 10 mg qhs Hypothyroidism 84533764 E03.9 cont levothyrox ine-must have brand name Synthroid since she is not responding well to genericche ck lab to see if improvemen t-currentl y on 150 mcg Multiple sclerosis 36692 007 G35 cont with neuro- needs followup Health Concerns Section Related Observation LastModified by Organization Detai ls LastModified Time None Recorded Concern Status LastModified by Organization Details LastModified Time None Recorded Advance Directives Directive N: Payers Encounter Date Sequence Insurance Name Policy Number Policy Cuevas Covered Member ID Cuevas Member ID Guarantor Name 04/20/2022 1 [facility] (MEDICAID REPLACEMENT - HMO) [id number] Ana Sanchez [id number] Ana Sanchez 11/01/2022 1 [facility] (MEDICAID REPLACEMENT - HMO) [id number] Ana Sanchez [id number] Ana Sanchez 02/08/2023 1 [facility] (MEDICAID HMO) [id number] Ana Sanchez [id number] Ana Sanchez 08/17/2023 1 [facility] (MEDICAID HMO) [id number] Ana Sanchez [id number] Ana Sanchez 01/16/2024 1 [facility] (MEDICAID HMO) [id number] Ana Sanchez [id number] Ana Sanchez Notes Date Note Type Note Provider Name and Address Organization Details Recorded Time 04/20/2022 text/html Went to on 04/18. given abx and 3 days off work. pt states she is still on abx but still cannot hear out of her left ear with balance issuescough mild at times Iraida Garcia APN, CORRESPONDENCE REVIEW CLERK-C Attn: [address] [place], [address], [facility] 04/20/2022 21:45:11 11/01/2022 text/html pneumonia. still having chest tightness, cough, and easily winded.Pt c/o sinus drainage and sinus headaches. otc ibuprofen/tylenol. Iraida Garcia APN, CORRESPONDENCE REVIEW CLERK-C Attn: [address] [place], [address], [facility] 11/01/2022 10:22:37 02/08/2023 text/html Hypothyroidism-Rajeev ing levothyroxine, no new symptoms, has issues with nails; hair and skin ok, Pt otherwise takes OTC PPI and many other OTC supplements. Has not seen GI for f/u since covid. lost her insurance, going through increased stress with marital issues, less crying, angry, irritable. better now with lexapro, no SI or HI or SH, Iraida Garcia APN, CORRESPONDENCE REVIEW CLERK-C Attn: [address] [place], [address], [facility] 02/12/2023 21:14:49 08/17/2023 text/html Hypothyroidism-Rajeev ing levothyroxine, no new symptoms, has issues with nails; hair and skin ok, Pt otherwise takes OTC PPI and many other OTC supplements. increased stress with marital issues, less crying, angry, irritable. better now with lexapro, no SI or HI or SH, Pt was an urgent care 3 weeks ago and still has a cough she can't get rid. Pt is also having sinus pressure. Started in June. Iraida Garcia APN, CORRESPONDENCE REVIEW CLERK-C Attn: [address] [place], [address], [facility] 08/17/2023 16:59:36 01/16/2024 text/html went to [facility] for leg swelling/pain. Pt states she was sleeping in her car for 2 weeks and was able to extend her legs. [facility] Iraida Garcia APN, CORRESPONDENCE REVIEW CLERK-C Attn: [address] [place], [address], [facility] 01/16/2024 15:30:46 OBGyn Episode No OBEpisode recorded.
--- OUTSIDE RECORDS SUMMARY | 2024-08-26 18:26 | XMS_ITS | Clinical Summary ---
Author Organization [facility] Address [address] [place] [address] Phone Care Team Providers Care Forest [employer] Professor Name Role Phone KIYA BUITRAGO NP Primary Care Provider [phone] LELA MCCANN, HENRI Jackson Unavailable [phone] Reason for Visit and Chief Complaint DEXASCAN Problems Includes: Problems addressed during this encounter and other active Problems All Visits Onset Date Resolved Date Provider Condition Jatinder teresa Reported Family History of Heart Disease 02/24/2015 JASE MAGANA RN [facility] Active Last Documented On 02/24/2015 1:16PM ; [facility] Note: Unchanged - dad History of Hypothyroidism 02/24/2015 JASE MAGANA RN [facility] Active Last Documented On 02/24/2015 1:16PM ; [facility] Note: Unchanged History of Tubal Ligation 02/24/2015 JASE MAGANA RN [facility] Active Last Documented On 02/24/2015 1:16PM ; [facility] Note: Unchanged Multiple Sclerosis 02/24/2015 JASE DUPONT RN [facility] Active Last Documented On 5 1:17PM ; [facility] Plan of Treatment No Plan of Treatment Recorded Assessments Includes: Assessments from this encounter No Assessments Recorded Medical Equipment - Implanted Devices Includes: Current Devices No Medical Equipment Recorded Medications Includes: Medications discussed during this encounter and other current Medications Current Medications (continue as prescribed) Augmentin 875-125MG Oral Tablet 03/20/2017 Provider: Diagnosis: for 10 days for sinus infection Last Documented On 7 10:12AM By ABHINAV CHERY ; [facility] SM Echinacea 125MG Oral Tablet 03/20/2017 Provider: Diagnosis: Last Documented On 7 10:12AM By ABHINAV CHERY ; [facility] Turmeric 500MG Oral Capsule, conventional 03/20/2017 Provider: Diagnosis: Last Documented On 7 10:13AM By ABHINAV CHERY ; [facility] Jessie Allergy 180MG Oral Tablet 03/20/2017 Provide r: Diagnosis: Last Documented On 7 10:13AM By ABHINAV CHERY ; [facility] Buffered Vitamin C 1000MG Oral Capsule, conventional 0 03/20/2017 Provider: Diagnosis: Last Documented On 7 10:11AM By ABHINAV CHERY ; [facility] Digestive Probiotic Oral Capsule, conventional Provider: Diagnosis: Last Documented On 7 10:11AM By ABHINAV CHERY ; [facility] B Complex-B12 Tablet 03/17/2016 Provider: Diagnosis: Last Documented On 03/17/2016 3:22PM By VINNIE YAP MA ; [facility] SM Vitamin D3 1000 UNIT Tablet 03/17/2016 Provider: Diagnosis: Last Documented On 03/17/2016 3:22PM By VINNIE YAP MA ; [facility] Daily Value Multivitamin Tablet 03/17/2016 Provider: Diagnosis: Last Documented On 03/17/2016 3:22PM By VINNIE YAP MA ; [facility] Singulair 4 MG Tablet, chewable 03/17/2016 Provider: Diagnosis: Last Documented On 03/17/2016 3:21PM By VINNIE YAP MA ; [facility] Flonase 50 MCG/ACT Suspension 02/24/2015 Provider: Diagnosis: Last Documented On 5 1:10PM By MAX CHERY ; [facility] Levothyroxine Sodium 100 MCG Tablet 02/24/2015 Provi danny: Diagnosis: Last Documented On 5 12:58PM By MAX CHERY ; [facility] Medications Administered Includes: Administered Medications from this encounter No Administered Medications Recorded Results Includes: Results discussed during this encounter No Results Recorded For Specified Dates History of Present Illness Includes: History of Present Illness from this encounter No History of Present Illness Recorded Social History No Social History Recorded - Smoking Status Unknown Medical History Includes: Medical History addressed during this encounter No Medical History Recorded Family History Includes: Family History addressed during this encounter No Family History Recorded Review of Systems Includes: Review of Systems from this encounter No Review of Systems Recorded Mental Status Includes: Mental Status from this encounter No Mental Status Recorded Functional Status Includes: Functional Status from this encounter No Functional Status Recorded Physical Exam Includes: Physical Exam from this encounter No Physical Exam Recorded Allergies Includes: Active Allergies Substance Type Reaction Onset Date Resolved Date Statu s Codeine and Related Allergy Skin Rashes / Eruption of skin 03/20/2017 Active Last Documented On 9 9:47AM ; [facility] Encounters Encounter Provider Location Date Check-In Time Check-Out Time Diagnosis LEILANI MAGANA RN [facility] SURFACE 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
--- OUTSIDE RECORDS SUMMARY | 2024-08-26 18:26 | XMS_ITS ---
Author Organization [facility] Address [address] [place] [address] Phone Care Team Providers Care Head Pumper Name Role Phone KIYA BUITRAGO NP Primary Care Provider [phone] LELA MCCANN, HENRI Jackson Unavailable [phone] Reason for Referral Date Encounter Description Provider Reason for Referral 03/26/19 WELL WOMAN EXAM JASE MAGANA RN [facility] Request Consultation By Specialist 03/29/18 1 WK CK-UP JASE MAGANA RN [facility] Req uest Consultation By Specialist Problems Includes: Active, inactive, and resolved Problems All Visits Onset Date Resolved Date Provider Condition S tatus Excessive Bleeding During Period (Menorrhagia) 10/20/2015 03/30/2020 JASE MAGANA RN [facility] Resolved Last Documented On 03/30/2020 10:31AM ; [facility] Note: Unchanged - -- pt states the [...] it lasted 14 days in similar amounts. Reported Family History of Heart Disease 02/24/2015 JASE MAGANA RN [facility] Active Last Documented On 02/24/2015 1:16PM ; [facility] Note: Unchanged - dad History of Hypothyroidism 02/24/2015 JASE SMITH Active Last Documented On 02/24/2015 1:16PM ; [facility] Note: Unchanged History of Tubal Ligation 02/24/2015 JASE MAGANA RN [facility] Active Last Documented On 02/24/2015 1:16PM ; [facility] Note: Unchanged Multiple Sclerosis 02/24/2015 JASE DUPONT RN [facility] Active Last Documented On 5 1:17PM ; [facility] Plan of Treatment Findings Encounter Date Ordered Clinical summary pro vided to patient WELL WOMAN EXAM with JASE MAGANA RN [facility] 03/30/2020 Last Documented On 0 10:47AM ; [facility] Ordered weight loss diet WELL WOMAN EXAM with SONAL MAGANA RN [facility] 03/30/2020 Last Documented On 0 10:47AM ; [facility] Ordered Clinical summary pro vided to patient WELL WOMAN EXAM with JASE MAGANA RN [facility] 03/26/2019 Last Documented On 9 10:33AM ; [facility] Ordered Transition in care, clinical summary provided WELL WOMAN EXAM with JASE MAGANA RN [facility] 03/26/2019 Last Documented On 9 10:33AM ; [facility] Ordered weight loss diet WELL WOMAN EXAM with SONAL MAGANA RN [facility] 03/26/2019 Last Documented On 9 10:33AM ; [facility] Requested request consultati on by specialist WELL WOMAN EXAM with JASE MAGANA RN [facility] 03/26/2019 Last Documented On 9 10:33AM ; [facility] Ordered Transition in care, clinical summary provided 1 WK CK-UP with JASE MAGANA RN [facility] 03/29/2018 Last Documented On 8 9:54AM ; [facility] Requested request consultati on by specialist 1 WK CK-UP with JASE MAGANA RN [facility] 03/29/2018 Last Documented On 8 9:54AM ; [facility] Ordered Clinical summary pro vided to patient ASSISTANT PROFESSOR OF NURSING EXAM with JASE MAGANA RN [facility] 03/22/2018 Last Documented On 8 8:35AM ; [facility] Ordered weight loss diet ASSISTANT PROFESSOR OF NURSING EXAM with JASE DUPONT RN [facility] 03/22/2018 Last Documented On 8 8:35AM ; [facility] Ordered Clinical summary pro vided to patient 2 MONTH CHECK with JASE MAGANA RN [facility] 06/07/2017 Last Documented On 7 3:21PM ; [facility] Ordered Clinical summary pro vided to patient ASSISTANT PROFESSOR OF NURSING EXAM with JASE MAGANA RN [facility] 03/20/2017 Last Documented On 7 10:50AM ; [facility] Ordered weight loss diet ASSISTANT PROFESSOR OF NURSING EXAM with JASE DUPONT RN [facility] 03/20/2017 Last Documented On 7 10:50AM ; [facility] Ordered Clinical summary pro vided to patient ANNUAL SOLAR PHOTOVOLTAIC INSTALLER EXAM with JASE MAGANA RN [facility] 03/17/2016 Last Documented On 6 11:24AM ; [facility] Follow-up for re-examination for 3 months with a BP check and on OCP's 3 MONTH CHECK with HENRI VOGEL MD 10/20/2015 Last Documented On 6 10:11AM ; [facility] Ordered patient to call if p kyleem develops 3 MONTH CHECK with HENRI VOGEL MD 10/20/2015 Last Documented On 6 10:11AM ; [facility] She will keep a menstrual diary 3 MONTH CHECK wi HENRI VOGEL MD 10/20/2015 Last Documented On 6 10:11AM ; [facility] Ordered Clinical summary pro vided to patient PROBLEM VISIT with JASE MAGANA RN [facility] 05/13/2015 Last Documented On 5 2:50PM ; [facility] Ordered Clinical summary pro vided to patient NEW ASSISTANT PROFESSOR OF NURSING EXAM with JASE MAGANA RN [facility] 02/24/2015 Last Documented On 5 1:38PM ; [facility] Referrals To Diagnosis General Surgery [place] [address] - Unspecified lump in the left breast, unspecified quadrant Note: L breast mass x 3 week s below areola, some reduction in size w/antibiotic course. L breast diagnostic mammogram and U/S ordered Last Documented On 9 10:29AM ; [facility] [place]rolog[place] [address] - Multiple sclerosis Last Documented On 0 10:43AM ; [facility] Instructions to patient Instructed to call if excess wesly bleeding or abdominal/pelvic pain Last Documented On 0 10:32AM ; [facility] Instructions For Patient: Mo nthly Self Breast Exam Last Documented On 0 10:32AM ; [facility] Recommend diet and exercise at least 30 min three times per week Last Documented On 0 10:32AM ; [facility] Lose weight Last Documented On 9 10:09AM ; [facility] Instructed to call if excess wesly bleeding or abdominal/pelvic pain Last Documented On 9 10:09AM ; [facility] Instructions For Patient: Mo nthly Self Breast Exam Last Documented On 9 10:09AM ; [facility] Recommend diet and exercise at least 30 min three times per week Last Documented On 9 10:09AM ; [facility] Lose weight Last Documented On 8 8:07AM ; [facility] Instructed to call if excess wesly bleeding or abdominal/pelvic pain Last Documented On 8 8:07AM ; [facility] Instructions For Patient: Mo nthly Self Breast Exam Last Documented On 8 8:07AM ; [facility] Recommend diet and exercise at least 30 min three times per week Last Documented On 8 8:07AM ; [facility] Instructions for patient ER if dizzy, vomiting or light-headed due to heavy bleeding Last Documented On 7 10:47AM ; [facility] Instructions for patient ER if bleeding through reg. sized pad/tampon < 1 hour Last Documented On 7 10:47AM ; [facility] Instructions for patient : p atient is to keep a menstrual diary to help with further evaluation and treatment Last Documented On 7 10:47AM ; [facility] Lose weight Last Documented On 7 10:19AM ; [facility] Instructed to call if excess wesly bleeding or abdominal/pelvic pain Last Documented On 7 10:19AM ; [facility] Instructions For Patient: Mo nthly Self Breast Exam Last Documented On 7 10:19AM ; [facility] Recommend diet and exercise at least 30 min three times per week Last Documented On 7 10:19AM ; [facility] Instructions for patient : B reast Self Exam discussed and technique reviewed Last Documented On 6 3:31PM ; [facility] Use a condom during sexual i ntercourse Last Documented On 6 3:31PM ; [facility] Instructed to call if excess wesly bleeding or abdominal/pelvic pain Last Documented On 6 3:31PM ; [facility] Recommend diet and exercise at least 30 min three times per week Last Documented On 6 3:31PM ; [facility] Instructions for patient : p atient is to keep a menstrual diary to help with further evaluation and treatment Last Documented On 5 2:42PM ; [facility] Instructions for patient ER if bleeding through reg. sized pad/tampon < 1 hour Last Documented On 5 2:42PM ; [facility] Instructions for patient : B reast Self Exam discussed and technique reviewed Last Documented On 5 1:15PM ; [facility] Use a condom during sexual i ntercourse Last Documented On 5 1:15PM ; [facility] Instructed to call if excess wesly bleeding or abdominal/pelvic pain Last Documented On 5 1:15PM ; [facility] Recommend diet and exercise at least 30 min three times per week Last Documented On 5 1:15PM ; [facility] Recommend preventative vacci nation including but not limited to influenza/flu vaccine, DTP, Rubella, Hepatitis B vaccination series Last Documented On 5 1:15PM ; [facility] Education and Decision Aids were provided during visit for: Patient Education: Daily emily cium and vitamin D Last Documented On 0 10:32AM ; [facility] Patient Education: Daily emily cium and vitamin D Last Documented On 9 10:09AM ; [facility] Patient education RE: cherrin g signals associated with hormonal contraceptive use including abdominal, chest, or leg pain, headaches or visual disturbances Last Documented On 8 8:07AM ; [facility] Patient Education: Daily emily cium and vitamin D Last Documented On 8 8:07AM ; [facility] Patient counseling : Use of contraceptives discussed in detail including rare occurrence of heart attack, stroke, and leg clots. Patient understands that smoking increases the risk of serious side effects with any steroid-based contraceptive method Last Documented On 7 3:09PM ; [facility] Patient education RE: warnin g signals associated with hormonal contraceptive use including abdominal, chest, or leg pain, headaches or visual disturbances Last Documented On 7 10:19AM ; [facility] Patient Education: Daily emily cium and vitamin D Last Documented On 7 10:19AM ; [facility] Patient education RE: cherrin g signals associated with hormonal contraceptive use including abdominal, chest, or leg pain, headaches or visual disturbances Last Documented On 6 3:31PM ; [facility] Patient Education: Daily emily cium and vitamin D Last Documented On 6 3:31PM ; [facility] She will keep a menstrual di agustin Last Documented On 6 10:03AM ; [facility] INFORMED CONSENT DISCUSSION: Endometrial biopsy was discussed in detail including risk of bleeding, infection, discomfort, insufficient specimen with need to repeat test, and rare incidence of uterine perforation. Patient expressed understanding of the above and consented to the procedure Last Documented On 5 9:41AM ; [facility] Patient Education: Daily emily cium and vitamin D Last Documented On 5 1:15PM ; [facility] Assessments Includes: Assessments for all patient encounters Findings Encounter Date Cutaneous candidiasis WELL WOMAN EXAM with JASE MAGANA RN [facility] 03/30/2020 Last Documented On 0 10:47AM ; [facility] Routine gynecological exam w ith abnormal findings WELL WOMAN EXAM with JASE MAGANA RN [facility] 03/30/2020 Last Documented On 0 10:47AM ; [facility] Screen malignant neoplasm cervix WELL WO MAN EXAM with JASE MAGANA RN [facility] 03/30/2020 Last Documented On 0 10:47AM ; [facility] Multiple sclerosis WELL WOMAN EXAM with JASE MAGANA RN [facility] 03/26/2019 Last Documented On 9 10:33AM ; [facility] NORMAL FEMALE EXAM WELL WOMAN EXAM with JASE MAGANA RN [facility] 03/26/2019 Last Documented On 9 10:33AM ; [facility] Screen malignant neoplasm cervix WELL WO MAN EXAM with JASE MAGANA RN [facility] 03/26/2019 Last Documented On 9 10:33AM ; [facility] Lump or mass in breast r/o a bcess s/p insect bite 1 WK CK-UP with JASE MAGANA RN [facility] 03/29/2018 Last Documented On 8 9:54AM ; [facility] NORMAL FEMALE EXAM ASSISTANT PROFESSOR OF NURSING EXAM with JASE Funes [facility] 03/22/2018 Last Documented On 8 8:35AM ; [facility] Screen malignant neoplasm cervix ASSISTANT PROFESSOR OF NURSING EXAM with Manuel MAGANA RN [facility] 03/22/2018 Last Documented On 8 8:35AM ; [facility] Nonvenomous insect bite of left breast P ROBLEM VISIT with JASE MAGANA RN [facility] 03/15/2018 Last Documented On 8 9:13AM ; [facility] Encounter for contraceptive surveillance, unspecified 2 MONTH CHECK with JASE MAGANA RN [facility] 06/07/2017 Last Documented On 7 3:21PM ; [facility] NORMAL FEMALE EXAM ASSISTANT PROFESSOR OF NURSING EXAM with JASE Funes [facility] 03/20/2017 Last Documented On 7 10:50AM ; [facility] Screen malignant neoplasm cervix ASSISTANT PROFESSOR OF NURSING EXAM with Manuel MAGANA RN [facility] 03/20/2017 Last Documented On 7 10:50AM ; [facility] Encounter for contraceptive pill surveillance BLOOD PRESSURE CHECK-UP with HENRI VOGEL MD 10/28/2016 Last Documented On 7 11:48AM ; [facility] Menorrhagia BLOOD PRESSURE CHECK-UP with HENRI VOGEL MD 10/28/2016 Last Documented On 7 11:48AM ; [facility] Assessment of menorrhagia BLOOD PRESSURE CHECK-U P with HENRI VOGEL MD 07/18/2016 Last Documented On 7 9:00AM ; [facility] Encounter for contraceptive pill surveillance BLOOD PRESSURE CHECK-UP with HENRI VOGEL MD 07/18/2016 Last Documented On 7 9:00AM ; [facility] Dysmenorrhea PREOP EXAM with HENRI Estevez 04/15/2016 Last Documented On 6 10:44AM ; [facility] Menorrhagia PREOP EXAM with HENRI Estevez 04/15/2016 Last Documented On 6 10:44AM ; [facility] NORMAL FEMALE EXAM ANNUAL SOLAR PHOTOVOLTAIC INSTALLER EXAM with JASE MAGANA RN [facility] 03/17/2016 Last Documented On 6 11:24AM ; [facility] Screen malignant neoplasm cervix ANNUAL SOLAR PHOTOVOLTAIC INSTALLER EXAM with JASE MAGANA RN [facility] 03/17/2016 Last Documented On 6 11:24AM ; [facility] Assessment of menorrhagia 3 MONTH CHECK with HENRI VOGEL MD 01/19/2016 Last Documented On 6 3:43PM ; [facility] Encounter for contraceptive pill surveillance 3 MONTH CHECK with HENRI VOGEL MD 01/19/2016 Last Documented On 6 3:43PM ; [facility] Menorrhagia 3 MONTH CHECK with HENRI Morris MD 10/20/2015 Last Documented On 6 10:11AM ; [facility] Menorrhagia 2 WK CK-UP with HENRI Estevez 07/10/2015 Last Documented On 6 11:51AM ; [facility] Menorrhagia ENDOMETRIAL BIOPSY with HENRI GUERRERO MD 06/24/2015 Last Documented On 5 10:03AM ; [facility] Menorrhagia PROBLEM VISIT with JASE MAGANA RN [facility] 05/13/2015 Last Documented On 5 2:50PM ; [facility] Routine gynecological exam NEW ASSISTANT PROFESSOR OF NURSING EXAM with SCOTTY MAGANA RN [facility] 02/24/2015 Last Documented On 5 1:38PM ; [facility] SCREENING FOR STD NEW ASSISTANT PROFESSOR OF NURSING EXAM with JASE Fletcher RN [facility] 02/24/2015 Last Documented On 5 1:38PM ; [facility] Screening Malig. Neoplasm Rectum NEW ASSISTANT PROFESSOR OF NURSING EXAM with JASE MAGANA RN [facility] 02/24/2015 Last Documented On 5 1:38PM ; [facility] Instructions Includes: Instructions for all patient encounters Instructions to patient Instructed to call if excess wesly bleeding or abdominal/pelvic pain Last Documented On 0 10:32AM ; [facility] Instructions For Patient: Mo nthly Self Breast Exam Last Documented On 0 10:32AM ; [facility] Recommend diet and exercise at least 30 min three times per week Last Documented On 0 10:32AM ; [facility] Lose weight Last Documented On 9 10:09AM ; [facility] Instructed to call if excess wesly bleeding or abdominal/pelvic pain Last Documented On 9 10:09AM ; [facility] Instructions For Patient: Mo nthly Self Breast Exam Last Documented On 9 10:09AM ; [facility] Recommend diet and exercise at least 30 min three times per week Last Documented On 9 10:09AM ; [facility] Lose weight Last Documented On 8 8:07AM ; [facility] Instructed to call if excess wesly bleeding or abdominal/pelvic pain Last Documented On 8 8:07AM ; [facility] Instructions For Patient: Mo nthly Self Breast Exam Last Documented On 8 8:07AM ; [facility] Recommend diet and exercise at least 30 min three times per week Last Documented On 8 8:07AM ; [facility] Instructions for patient ER if dizzy, vomiting or light-headed due to heavy bleeding Last Documented On 7 10:47AM ; [facility] Instructions for patient ER if bleeding through reg. sized pad/tampon < 1 hour Last Documented On 7 10:47AM ; [facility] Instructions for patient : p atient is to keep a menstrual diary to help with further evaluation and treatment Last Documented On 7 10:47AM ; [facility] Lose weight Last Documented On 7 10:19AM ; [facility] Instructed to call if excess wesly bleeding or abdominal/pelvic pain Last Documented On 7 10:19AM ; [facility] Instructions For Patient: Mo nthly Self Breast Exam Last Documented On 7 10:19AM ; [facility] Recommend diet and exercise at least 30 min three times per week Last Documented On 7 10:19AM ; [facility] Instructions for patient : B reast Self Exam discussed and technique reviewed Last Documented On 6 3:31PM ; [facility] Use a condom during sexual i ntercourse Last Documented On 6 3:31PM ; [facility] Instructed to call if excess wesly bleeding or abdominal/pelvic pain Last Documented On 6 3:31PM ; [facility] Recommend diet and exercise at least 30 min three times per week Last Documented On 6 3:31PM ; [facility] Instructions for patient : p atient is to keep a menstrual diary to help with further evaluation and treatment Last Documented On 5 2:42PM ; [facility] Instructions for patient ER if bleeding through reg. sized pad/tampon < 1 hour Last Documented On 5 2:42PM ; [facility] Instructions for patient : B reast Self Exam discussed and technique reviewed Last Documented On 5 1:15PM ; [facility] Use a condom during sexual i ntercourse Last Documented On 5 1:15PM ; [facility] Instructed to call if excess wesly bleeding or abdominal/pelvic pain Last Documented On 5 1:15PM ; [facility] Recommend diet and exercise at least 30 min three times per week Last Documented On 5 1:15PM ; [facility] Recommend preventative vacci nation including but not limited to influenza/flu vaccine, DTP, Rubella, Hepatitis B vaccination series Last Documented On 5 1:15PM ; [facility] Education and Decision Aids were provided during visit for: Patient Education: Daily emily cium and vitamin D Last Documented On 0 10:32AM ; [facility] Patient Education: Daily emily cium and vitamin D Last Documented On 9 10:09AM ; [facility] Patient education RE: cherrin g signals associated with hormonal contraceptive use including abdominal, chest, or leg pain, headaches or visual disturbances Last Documented On 8 8:07AM ; [facility] Patient Education: Daily emily cium and vitamin D Last Documented On 8 8:07AM ; [facility] Patient counseling : Use of contraceptives discussed in detail including rare occurrence of heart attack, stroke, and leg clots. Patient understands that smoking increases the risk of serious side effects with any steroid-based contraceptive method Last Documented On 7 3:09PM ; [facility] Patient education RE: whitneynin g signals associated with hormonal contraceptive use including abdominal, chest, or leg pain, headaches or visual disturbances Last Documented On 7 10:19AM ; [facility] Patient Education: Daily emily cium and vitamin D Last Documented On 7 10:19AM ; [facility] Patient education RE: hcerrin g signals associated with hormonal contraceptive use including abdominal, chest, or leg pain, headaches or visual disturbances Last Documented On 6 3:31PM ; [facility] Patient Education: Daily emily cium and vitamin D Last Documented On 6 3:31PM ; [facility] She will keep a menstrual di agustin Last Documented On 6 10:03AM ; [facility] INFORMED CONSENT DISCUSSION: Endometrial biopsy was discussed in detail including risk of bleeding, infection, discomfort, insufficient specimen with need to repeat test, and rare incidence of uterine perforation. Patient expressed understanding of the above and consented to the procedure Last Documented On 5 9:41AM ; [facility] Patient Education: Daily emily cium and vitamin D Last Documented On 5 1:15PM ; [facility] Medical Equipment - Implanted Devices Includes: Current and historical Devices No Medical Equipment Recorded Medications Includes: Current and historical Medications Current Medications (continue as prescribed) Augmentin 875-125MG Oral Tablet 03/20/2017 Provider: Diagnosis: for 10 days for sinus infection Last Documented On 7 10:12AM By ABHINAV CHERY ; [facility] Echinacea 125MG Oral Tablet 03/20/2017 Provider: Diagnosis: Last Documented On 7 10:12AM By ABHINAV CHERY ; [facility] Turmeric 500MG Oral Capsule, conventional 03/20/2017 Provider: Diagnosis: Last Documented On 7 10:13AM By ABHINAV CHERY ; [facility] Jessie Allergy 180MG Oral Tablet 03/20/2017 Provide r: Diagnosis: Last Documented On 7 10:13AM By ABHINAV CHERY ; [facility] Buffered Vitamin C 1000MG Oral Capsule, conventional 0 03/20/2017 Provider: Diagnosis: Last Documented On 7 10:11AM By ABHINAV CHERY ; [facility] Digestive Probiotic Oral Capsule, conventional Provider: Diagnosis: Last Documented On 7 10:11AM By ABHINAV CHERY ; [facility] B Complex-B12 Tablet 03/17/2016 Provider: Diagnosis: Last Documented On 03/17/2016 3:22PM By VINNIE YAP MA ; [facility] Vitamin D3 1000 UNIT Tablet 03/17/2016 Provider: Diagnosis: Last Documented On 03/17/2016 3:22PM By VINNIE YAP MA ; [facility] Daily Value Multivitamin Tablet 03/17/2016 Provider: Diagnosis: Last Documented On 03/17/2016 3:22PM By VINNIE YAP MA ; [facility] Singulair 4 MG Tablet, chewable 03/17/2016 Provider: Diagnosis: Last Documented On 03/17/2016 3:21PM By VINNIE YAP MA ; [facility] Flonase 50 MCG/ACT Suspension 02/24/2015 Provider: Diagnosis: Last Documented On 5 1:10PM By MAX CHERY ; [facility] Levothyroxine Sodium 100 MCG Tablet 02/24/2015 Provi danny: Diagnosis: Last Documented On 5 12:58PM By MAX CHERY ; [facility] Past Medications on file Nystatin 860877 UNIT/GM External Cream 03/30/2020 - 04/20/2020 Provider: JASE SMITH BC Diagnosis: Candidiasis of s kin and nail as directed THREE TIMES A DA Y TO AFFECTED AREAS Last Documented On 0 10:49AM By JASE JACOBS ; [facility] Ibuprofen 800MG Oral Tablet 03/22/2018 - 04/05/2018 Provider: JASE SMITH BC Diagnosis: Insect bite (nonvenomous) of breast, left breast, init One tablet three times a day TAKE DIRECTED W/FOOD Last Documented On 8 8:38AM By JASE JACOBS ; [facility] Sulfamethoxazole-Trimethopri m 800-160MG Oral Tablet 03/22/2018 - 03/29/2018 Provider: JASE SMITH BC Diagnosis: Insect bite (nonvenomous) of breast, left breast, init One tablet twice a day ONE TAB 2 TIMES A DAY WIT H FOOD Last Documented On 8 8:38AM By JASE JACOBS ; [facility] Sprintec 28 0.25-35MG-MCG Oral Tablet 03/22/2018 - 03/17/2019 Provider: JASE SMITH BC Diagnosis: Other specified abnormal uterine and vaginal bleeding One tablet daily Last Documented On 8 8:38AM By JASE JACOBS ; [facility] Naproxen 500MG Oral Tablet 03/15/2018 - 03/22/2018 Provider: JASE SMITH BC Diagnosis: Insect bite (nonvenomous) of breast, left breast, init One tablet twice a day ONE T AB TWICE A DAY WITH FOOD DON'T EXCEED 2 TABS IN 24 HOURS Last Documented On 8 9:11AM By JASE JACOBS ; [facility] Fluconazole 150MG Oral Tablet 03/15/2018 - 03/22/2018 Provider: JASE SMITH BC Diagnosis: Insect bite (nonvenomous) of breast, left breast, init as directed take one tablet day 4 and one tablet day 7 of antibiotics Last Documented On 8 9:11AM By JASE JACOBS ; [facility] Amoxicillin-Pot Clavulanate 875-125MG Oral Tablet 03/15/2018 - 03/22/2018 Provider: JASE SMITH BC Diagnosis: Insect bite (nonvenomous) of breast, left breast, init One tablet twice a day Last Documented On 8 9:11AM By JASE JACOBS ; [facility] Sprintec 28 0.25-35MG-MCG Oral Tablet 06/07/2017 - 12/2016 Provider: Diagnosis: Last Documented On 7 3:11PM By JASE JACOBS ; [facility] Sprintec 28 0.25-35MG-MCG Oral Tablet 06/07/2017 - 03/22/2018 Provider: JASE SMITH BC Diagnosis: Encounter for surveillance of contraceptives, unspecified One tablet daily Last Documented On 8 8:24AM By JASE JACOBS ; [facility] Lo Loestrin Fe 1 MG-10 MCG /10 MCG Oral Tablet 03/20/2017 - 05/15/2017 Provider: JASE SMITH BC Diagnosis: Excessive and fr equent menstruation with regular cycle One tablet daily USE DIRECTED Last Documented On 7 10:42AM By JASE JACOBS ; [facility] Norgestimate-Eth Estradiol 0.25-35MG-MCG Oral Tablet 10/28/2016 - 03/22/2018 Provider: HENRI VOGEL MD Diagnosis: Excessive and fr equent menstruation with regular cycle One tablet daily Last Documented On 8 8:01AM By KAISER CHERY ; [facility] Norgestimate-Eth Estradiol 0.25-35 MG-MCG Tablet 07/18/2016 - 10/28/2016 Provider: HENRI VOGEL MD Diagnosis: Excessive and fr equent menstruation with regular cycle One tablet daily Last Documented On 10/28/2016 11:47AM By HENRI VOGEL MD ; [facility] Norgestimate-Eth Estradiol 0.25-35 MG-MCG Tablet 04/15/2016 - 07/18/2016 Provider: HENRI VOGEL MD Diagnosis: Excessive and fr equent menstruation with regular cycle One tablet daily Last Documented On 07/18/2016 8:58AM By HENRI VOGEL MD ; [facility] Norgestimate-Eth Estradiol 0.25-35 MG-MCG Tablet 03/17/2016 - 04/15/2016 Provider: JASE MAGANA RN [facility] Diagnosis: Excessive and fr equent menstruation with regular cycle One tablet daily Last Documented On 04/15/2016 10:43AM By HENRI VOGEL MD ; [facility] Ortho-Cyclen (28) 0.25-35 MG-MCG Tablet 10/20/2015 - 03/17/2016 Provider: HENRI VOGEL MD Diagnosis: Excessive and fr equent menstruation with regular cycle One tablet daily Last Documented On 6 3:33PM By JASE SMITH- ; [facility] ZyrTEC-D Allergy & Congestio n 5-120 MG Tablet Extended Release 12 Hour 02/24/2015 - 10/20/2015 Provider: Diagnosis: Last Documented On 6 9:53AM By MELANIE JOSEPH LPN ; [facility] Nexium 24HR 20 MG Capsule Delayed Release 02/24/2015 - 03/17/2016 Provider: Diagnosis: Last Documented On 03/17/2016 3:21PM By VINNIE YAP MA ; [facility] Medications Administered Includes: Administered Medications in patient's chart No Administered Medications Recorded Results Includes: Results from 08/26/2023 through 08/26/2024 No Results Recorded For Specified Dates History of Present Illness History of Present Illness not supported for this document type No History of Present Illness Recorded Social History Description Last Updated Sexually active 03/30/2020 Last Documented On 0 10:47AM ; [facility] Alcohol use: 2 drinks or less per day no ne 03/30/2020 Last Documented On 0 10:47AM ; [facility] Exercising regularly 03/30/2020 Last Documented On 0 10:47AM ; [facility] Not using alcohol 03/30/2020 Last Documented On 0 10:47AM ; [facility] Not using drugs 03/30/2020 Last Documented On 0 10:47AM ; [facility] Personal history 03/30/2020 Last Documented On 0 10:47AM ; [facility] Single 03/30/2020 Last Documented On 0 10:47AM ; [facility] Smoking status : Never smoker 03/30/2020 Last Documented On 0 10:47AM ; [facility] Social history unchanged 03/30/2020 Last Documented On 0 10:47AM ; [facility] Activities 03/26/2019 Last Documented On 9 10:33AM ; [facility] Education history 03/26/2019 Last Documented On 9 10:33AM ; [facility] Procedures and Surgical History Surgical History Last Updated Surgical / procedural history c/s x2 Last Documented On 7 10:50AM ; [facility] Previous colposcopy 04/15/2010 5 Last Documented On 5 10:03AM ; [facility] Surgical history unchanged 02/24/2015 Last Documented On 5 1:38PM ; [facility] History of cholecystectomy 02/24/2015 Last Documented On 5 1:38PM ; [facility] History of tubal ligation 02/24/2015 Last Documented On 5 1:38PM ; [facility] Medical History Includes: Medical History in patient's chart Description Last Updated A mammogram was performed 03/30/2020 Last Documented On 0 10:47AM ; [facility] History of a DXA of the lateral lumbar s pine was performed 03/28/2019 03/30/2020 Last Documented On 0 10:47AM ; [facility] History of Pap smear done 03/26/201903/04 Last Documented On 0 10:47AM ; [facility] History of screening mammogram was perfo rmed 04/06/2019 03/30/2020 Last Documented On 0 10:47AM ; [facility] Not sexually active 1 partner 03/26/2019 Last Documented On 9 10:33AM ; [facility] Last pap smear date 03/22/2018 03/26/2019 Last Documented On 9 10:33AM ; [facility] Contraception: OCP/tubal 03/22/2018 Last Documented On 8 8:35AM ; [facility] Last mammogram date: 04/07/2017 03/22/20 Last Documented On 8 8:35AM ; [facility] LMP: 2017 03/15/2018 Last Documented On 8 9:13AM ; [facility] History of dysfunctional uterine bleedin g 03/20/2017 Last Documented On 7 10:50AM ; [facility] Aborta 1 03/20/2017 Last Documented On 7 10:50AM ; [facility] 3 03/20/2017 Last Documented On 7 10:50AM ; [facility] Para 2 03/20/2017 Last Documented On 7 10:50AM ; [facility] Result: normal 03/20/2017 Last Documented On 7 10:50AM ; [facility] Result: normal 03/20/2017 Last Documented On 7 10:50AM ; [facility] PRIMARY CARE PROVIDER : prakash Buitrago Last Documented On 7 9:00AM ; [facility] section x 2 01/19/2016 Last Documented On 6 3:43PM ; [facility] Status post tubal ligation 01/19/2016 Last Documented On 6 3:43PM ; [facility] ovarian cysts 05/13/2015 Last Documented On 5 2:50PM ; [facility] MULTIPLE SCLEROSIS 02/24/2015 Last Documented On 5 1:38PM ; [facility] History of hypothyroidism 02/24/2015 Last Documented On 5 1:38PM ; [facility] No recent change in medical history 02/01 Last Documented On 5 1:38PM ; [facility] Family History Includes: Family History in patient's chart Description Last Updated Maternal history of hypertension mom Last Documented On 7 10:50AM ; [facility] Maternal history of hypercholesterolemia mom 06/24/2015 Last Documented On 5 10:03AM ; [facility] Paternal history of diabetes mellitus da d 06/24/2015 Last Documented On 5 10:03AM ; [facility] Paternal history of family history of he art disease dad 06/24/2015 Last Documented On 5 10:03AM ; [facility] Family history unchanged 02/24/2015 Last Documented On 5 1:38PM ; [facility] Family history of diabetes mellitus dad 02/24/2015 Last Documented On 5 1:38PM ; [facility] Family history of heart disease dad 02/01 Last Documented On 5 1:38PM ; [facility] Family history of hypercholesterolemia m om 02/24/2015 Last Documented On 5 1:38PM ; [facility] Family history of hypertension mom 02/24 Last Documented On 5 1:38PM ; [facility] Review of Systems Review of Systems not supported for this document type No Review of Systems Recorded Mental Status Description Oriented to time, place, and person No anxiety A desire to continue living Functional Status No Functional Status Recorded Physical Exam Physical Exam not supported for this document type No Physical Exam Recorded Allergies Includes: Active, inactive, and resolved Allergies Substance Type Reaction Onset Date Resolved Date Statu s Codeine and Related Allergy Skin Rashes / Eruption of skin 03/20/2017 Active Last Documented On 9 9:47AM ; [facility] Insurance Includes: Active Insurance Policies Plan Name Member ID Group # Subscriber Relationship Effect wesly Dates 1 - [facility] [id number] ELVIRA Moy 2 - [facility] [id number] ELVIRA Moy Clinical Notes Includes: Signed Clinical Notes starting from 07/22/2022 No Clinical Notes Recorded
--- OUTSIDE RECORDS SUMMARY | 2024-08-26 18:26 | XMS_ITS | Clinical Summary ---
Author Organization [facility] Address [address] [place] [address] Phone Care Team Providers Care [place] Machine Operator Name Role Phone KIYA BUITRAGO NP Primary Care Provider [phone] LELA MCCANN, HENRI Jackson Unavailable [phone] Reason for Visit and Chief Complaint RE-PAP Problems Includes: Problems addressed during this encounter and other active Problems All Visits Onset Date Resolved Date Provider Condition Jatinder teresa Reported Family History of Heart Disease 02/24/2015 JASE MAGANA RN [facility] Active Last Documented On 02/24/2015 1:16PM ; [facility] Note: Unchanged - dad History of Hypothyroidism 02/24/2015 JASE MAGANA RN [facility] Active Last Documented On 02/24/2015 1:16PM ; [facility] Note: Unchanged History of Tubal Ligation 02/24/2015 JASE MAGANA RN [facility] Active Last Documented On 02/24/2015 1:16PM ; [facility] Note: Unchanged Multiple Sclerosis 02/24/2015 JASE DUPONT RN [facility] Active Last Documented On 5 1:17PM ; [facility] Plan of Treatment No Plan of Treatment [...] On 7 10:12AM By ABHINAV CHERY ; [facility] SM Echinacea 125MG Oral Tablet 03/20/2017 Provider: Diagnosis: Last Documented On 7 10:12AM By ABHINAV CHERY ; [facility] Turmeric 500MG Oral Capsule, conventional 03/20/2017 Provider: Diagnosis: Last Documented On 7 10:13AM By ABHINAV CHERY ; [facility] Jessie Allergy 180MG Oral Tablet 03/20/2017 Provide r: Diagnosis: Last Documented On 7 10:13AM By ABHINAV CHERY ; [facility] Buffered Vitamin C 1000MG Oral Capsule, conventional 0 03/20/2017 Provider: Diagnosis: Last Documented On 7 10:11AM By ABHINAV CHERY ; [facility] CVS Digestive Probiotic Oral Capsule, conventional Provider: Diagnosis: Last Documented On 7 10:11AM By ABHINAV CHERY ; [facility] B Complex-B12 Tablet 03/17/2016 Provider: Diagnosis: Last Documented On 03/17/2016 3:22PM By VINNIE YAP MA ; [facility] SM Vitamin D3 1000 UNIT Tablet 03/17/2016 Provider: Diagnosis: Last Documented On 03/17/2016 3:22PM By VINNIE YAP MA ; [facility] Daily Value Multivitamin Tablet 03/17/2016 Provider: Diagnosis: Last Documented On 03/17/2016 3:22PM By VINNIE YAP MA ; [facility] Singulair 4 MG Tablet, chewable 03/17/2016 Provider: Diagnosis: Last Documented On 03/17/2016 3:21PM By VINNIE YAP MA ; [facility] Flonase 50 MCG/ACT Suspension 02/24/2015 Provider: Diagnosis: Last Documented On 5 1:10PM By MAX CHERY ; [facility] Levothyroxine Sodium 100 MCG Tablet 02/24/2015 Provi danny: Diagnosis: Last Documented On 5 12:58PM By MAX CHERY ; [facility] Medications Administered Includes: Administered Medications from this [...] Active Last Documented On 9 9:47AM ; [facility] Insurance Includes: Active Insurance Policies Plan Name Member ID Group # Subscriber Relationship Effect wesly Dates 1 - [facility] [id number] ELVIRA Moy 2 - [facility] [id number] ELVIRA Moy Clinical Notes Includes: Clinical Notes from this encounter No Clinical Notes Recorded
--- OUTSIDE RECORDS SUMMARY | 2024-08-26 18:26 | XMS_ITS | Referral Summary ---
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 Gender Identity Not on file Sexual Orientation Not on file Last Filed Vital Signs [...] 12/23/2023 2:24 PM CDT Plan of Treatment Not on file Procedures Procedure Name Priority Date/Time Associated Diagnosis Comments MAMMOGRAPHY, TOMOGRAPHY, BILATERAL Routine 04/07/2017 3:22 PM CDT from Last 3 Months or Most Recently Relevant to Health Maintenance Results * MAMMOGRAPHY, TOMOGRAPHY, BILATERAL (04/07/2017 3:22 PM CDT) Anatomical Region Laterality Modality Breast Bilateral Mammography 04/07/2017 3:22 PM CDT Narrative 04/07/2017 3:22 PM CDT SCREENING MAMM W LARA BI Acc#: [id number] DATE OF EXAM: Apr 07 2017 SCREENING [...] on: Apr 07 2017 10:22A Transcribed by: PSC On: Apr 07 2017 10:20A Approved Electronically by: SIRISHA MIRZA M.D. on: Apr 07 2017 10:20A Ordering DR: KRISTY ([facility]) IZZY Attending DR: DR HENRI VOGEL Attending: DR HENRI VOGEL Requesting: KRISTY DAVISON ([facility]) Requesting Attending Attending ID: [id number] Requesting ID: [id number] Report To 1 ID: [id number] Report To 1 Name: KRISTY DAVISON ([facility]) Report To 1 FAX: [phone] NextGen Order #: Procedure Note Miscellaneous, Not In File / Provider, MD Yeni - 04/10/2017 SCREENING MAMM W LARA BI Acc#: [id number] DATE OF EXAM: Apr 07 2017 SCREENING [...] on: Apr 07 2017 10:22A Transcribed by: HERBERT On: Apr 07 2017 10:20A Approved Electronically by: SIRISHA MIRZA M.D. on: Apr 07 2017 10:20A Ordering DR: KRISTY ([facility]) IZZY Attending DR: DR HENRI VOGEL Attending: DR HENRI VOGEL Requesting: KRISTY DAVISON ([facility]) Requesting Attending Attending ID: [id number] Requesting ID: [id number] Report To 1 ID: [id number] Report To 1 Name: KRISTY DAVISON ([facility]) Report To 1 FAX: [phone] NextGen Order #: Kristy Davison MICROWAVE TECHNICIAN IMG MAMMO PROCEDURES Edited Re sult - Final from Last 3 Months or Most Recently Relevant to Health Maintenance Insurance [facility] Care Teams Child Development Director Relationship Specialty Start Date End Date Meraz, Iraida Quan NP [address] [place], [place] [id number] PCP - General Nurse Practitioner 03/17/23 Jimmy Barahona, PT Physical Therapist Physical Therapy 02/13/18 Joelle Whittaker, ROOM SERVICE RUNNER Physical Therapist Physical Therapy 02/28/18
--- OUTSIDE RECORDS SUMMARY | 2024-08-26 18:27 | XMS_ITS | Clinical Summary ---
Author Organization [facility] Address [address] [place] [address] Phone Care Team Providers Care Sales And Service Specialist Name Role Phone KIYA BUITRAGO NP Primary Care Provider [phone] LELA MCCANN, HENRI Jackson Unavailable [phone] Reason for Referral Date Encounter Description Provider Reason for Referral 03/29/18 1 WK CK-UP JASE MAGANA RN [facility] Req uest Consultation By Specialist Reason for Visit and Chief Complaint visit for: Breast Problems - The Chief Complaint is: 1 week breast recheck--pt states it's getting better, but still not 100% Problems Includes: Problems addressed during this encounter and other active Problems Current Visit Onset Date Resolved Date Provider Conditio n Status Reported Family History of Heart Disease 02/24/2015 JASE MAGANA RN [facility] Active Last Documented On 02/24/2015 1:16PM ; [facility] Note: Unchanged - dad History of Hypothyroidism 02/24/2015 JASE MAGANA RN [facility] Active Last Documented On 02/24/2015 1:16PM ; [facility] Note: Unchanged History of Tubal Ligation 02/24/2015 JASE YARBROUGH Active Last Documented On 02/24/2015 1:16PM ; [facility] Note: Unchanged Past Visits Onset Date Resolved Date Provider Condition Status Multiple Sclerosis 02/24/2015 JASE YARBROUGH Active Last Documented On 5 1:17PM ; [facility] Plan of Treatment - Transition in care, clinical summary provided - Last Documented On 03/29/2018 9:54AM ; [facility] - Request consultation by specialist - Last Documented On 03/29/2018 9:54AM ; [facility] Pending Tests Order Diagnosis Results Due Ordering Provider Radiology @ other - Ultrasound Breast Ultrasound Unspecified lump in the left breast, unspecified quadrant 04/12/18 JASE MAGANA RN [facility] Last Documented On 9 10:28AM ; [facility] Radiology @ other - *MAMMOGRAPHY Diagnostic Mammography Unspecified lump in the left breast, unspecified quadrant 04/12/18 JASE MAGANA RN [facility] Last Documented On 9 10:28AM ; [facility] Referrals To Diagnosis General Surgery [place] [address] - Unspecified lump in the left breast, unspecified quadrant Note: L breast mass x 3 week s below areola, some reduction in size w/antibiotic course. L breast diagnostic mammogram and U/S ordered Last Documented On 9 10:29AM ; [facility] Assessments Includes: Assessments from this encounter Findings - Lump or mass in breast r/o abcess s/p insect bite - Last Documented On 03/29/2018 9:54AM ; [facility] Medical Equipment - Implanted Devices Includes: Current Devices No Medical Equipment Recorded Medications Includes: Medications discussed during this encounter and other current Medications Current Medications (continue as prescribed) Augmentin 875-125MG Oral Tablet 03/20/2017 Provider: Diagnosis: for 10 days for sinus infection Last Documented On 7 10:12AM By ABHINAV CHERY ; [facility] SM Echinacea 125MG Oral Tablet 03/20/2017 Provider: Diagnosis: Last Documented On 7 10:12AM By ABHINAV CHERY ; [facility] Turmeric 500MG Oral Capsule, conventional 03/20/2017 Provider: Diagnosis: Last Documented On 7 10:13AM By ABHINAV CHERY ; [facility] Jessie Allergy 180MG Oral Tablet 03/20/2017 Provide r: Diagnosis: Last Documented On 7 10:13AM By ABHINAV CHERY ; [facility] Buffered Vitamin C 1000MG Oral Capsule, conventional 0 03/20/2017 Provider: Diagnosis: Last Documented On 7 10:11AM By ABHINAV CHERY ; [facility] Digestive Probiotic Oral Capsule, conventional Provider: Diagnosis: Last Documented On 7 10:11AM By ABHINAV CHERY ; [facility] B Complex-B12 Tablet 03/17/2016 Provider: Diagnosis: Last Documented On 03/17/2016 3:22PM By VINNIE YAP MA ; [facility] SM Vitamin D3 1000 UNIT Tablet 03/17/2016 Provider: Diagnosis: Last Documented On 03/17/2016 3:22PM By VINNIE YAP MA ; [facility] Daily Value Multivitamin Tablet 03/17/2016 Provider: Diagnosis: Last Documented On 03/17/2016 3:22PM By VINNIE YAP MA ; [facility] Singulair 4 MG Tablet, chewable 03/17/2016 Provider: Diagnosis: Last Documented On 03/17/2016 3:21PM By VINNIE YAP MA ; [facility] Flonase 50 MCG/ACT Suspension 02/24/2015 Provider: Diagnosis: Last Documented On 5 1:10PM By MAX CHERY ; [facility] Levothyroxine Sodium 100 MCG Tablet 02/24/2015 Provi danny: Diagnosis: Last Documented On 5 12:58PM By MAX CHERY ; [facility] Past Medications on file Nystatin 996886 UNIT/GM External Cream 03/30/2020 - 04/20/2020 Provider: JASE SMITH Diagnosis: Candidiasis of s kin and nail as directed THREE TIMES A DA Y TO AFFECTED AREAS Last Documented On 0 10:49AM By JASE SMITH-LINNEA ; [facility] Ibuprofen 800MG Oral Tablet 03/22/2018 - 04/05/2018 Provider: JASE YARBROUGH Diagnosis: Insect bite (nonvenomous) of breast, left breast, init One tablet three times a day TAKE DIRECTED W/FOOD Last Documented On 8 8:38AM By JASE JACOBS ; [facility] Sulfamethoxazole-Trimethopri m 800-160MG Oral Tablet 03/22/2018 - 03/29/2018 Provider: JASE SMITH BC Diagnosis: Insect bite (nonvenomous) of breast, left breast, init One tablet twice a day ONE TAB 2 TIMES A DAY WIT H FOOD Last Documented On 8 8:38AM By JASE JACOBS ; [facility] Sprintec 28 0.25-35MG-MCG Oral Tablet 03/22/2018 - 03/17/2019 Provider: JASE SMITH BC Diagnosis: Other specified abnormal uterine and vaginal bleeding One tablet daily Last Documented On 8 8:38AM By JASE JACOBS ; [facility] Naproxen 500MG Oral Tablet 03/15/2018 - 03/22/2018 Provider: JASE SMITH BC Diagnosis: Insect bite (nonvenomous) of breast, left breast, init One tablet twice a day ONE T AB TWICE A DAY WITH FOOD DON'T EXCEED 2 TABS IN 24 HOURS Last Documented On 8 9:11AM By JASE JACOBS ; [facility] Fluconazole 150MG Oral Tablet 03/15/2018 - 03/22/2018 Provider: JASE SMITH BC Diagnosis: Insect bite (nonvenomous) of breast, left breast, init as directed take one tablet day 4 and one tablet day 7 of antibiotics Last Documented On 8 9:11AM By JASE JACOBS ; [facility] Amoxicillin-Pot Clavulanate 875-125MG Oral Tablet 03/15/2018 - 03/22/2018 Provider: JASE SMITH BC Diagnosis: Insect bite (nonvenomous) of breast, left breast, init One tablet twice a day Last Documented On 8 9:11AM By JASE JACOBS ; [facility] Lo Loestrin Fe 1 MG-10 MCG /10 MCG Oral Tablet 03/20/2017 - 05/15/2017 Provider: JASE SMITH BC Diagnosis: Excessive and fr equent menstruation with regular cycle One tablet daily USE DIRECTED Last Documented On 7 10:42AM By JASE JACOBS ; [facility] Medications Administered Includes: Administered Medications from this encounter No Administered Medications Recorded Vital Signs Includes: Vital Signs from this encounter Vital Name 03/29/2018 08:34A 03/29/2018 08: 33A Blood Pressure Sitting L 110/70 BP Cuff Size Large Height (in) 59 59 Weight (lb) 180.8 Body Mass Index (kg/m2) 36.5 Body Surface Area (m2) 1.8 Last Documented: On 03/29/2018 8:38AM ; [facility] On 03/29/2018 8:33AM ; [facility] Results Includes: Results discussed during this encounter No Results Recorded For Specified Dates History of Present Illness Includes: History of Present Illness from this encounter JUANITA WORTHINGTON is a 47 year old female. - Medication list reviewed. - Lump in the left breast reducing in size, not resolved - No nipple discharge - No breast swelling Social History Description Last Updated Alcohol use: 2 drinks or less per day no ne 03/29/2018 Last Documented On 8 9:54AM ; [facility] Non-smoker 03/29/2018 Last Documented On 8 9:54AM ; [facility] Smoking status : Never smoker 03/29/2018 Last Documented On 8 9:54AM ; [facility] Procedures and Surgical History Includes: Procedures from this encounter Procedures Code Diagnosis Performing Provider Service L ocation Service Date education and instructions Last Documented On 8 8:58AM ; [facility] Clinical summary provided to patient Last Documented On 8 8:58AM ; [facility] Clinical summary transmitted to [facility] provider electronically Last Documented On 8 8:58AM ; [facility] Surgical History Last Updated Surgical / procedural history c/s x2 Last Documented On 8 8:33AM ; [facility] Previous colposcopy 04/15/2010 5 Last Documented On 8 8:33AM ; [facility] Surgical history unchanged 02/24/2015 Last Documented On 8 8:33AM ; [facility] History of cholecystectomy 02/24/2015 Last Documented On 8 8:33AM ; [facility] History of tubal ligation 02/24/2015 Last Documented On 8 8:33AM ; [facility] Medical History Includes: Medical History addressed during this encounter Description Last Updated History of Pap smear done 03/20/201703/04 Last Documented On 8 8:33AM ; [facility] History of screening mammogram was perfo rmed 04/07/2017 03/30/2020 Last Documented On 8 8:33AM ; [facility] Not sexually active 03/26/2019 Last Documented On 8 8:33AM ; [facility] Last pap smear date 03/20/2017 03/26/2019 Last Documented On 8 8:33AM ; [facility] Contraception: OCP/tubal 03/22/2018 Last Documented On 8 8:33AM ; [facility] Last mammogram date: 04/07/2017 03/22/20 Last Documented On 8 8:33AM ; [facility] LMP: 2017 03/15/2018 Last Documented On 8 8:33AM ; [facility] History of dysfunctional uterine bleedin g 03/20/2017 Last Documented On 8 8:33AM ; [facility] Aborta 1 03/20/2017 Last Documented On 8 8:33AM ; [facility] 3 03/20/2017 Last Documented On 8 8:33AM ; [facility] Para 2 03/20/2017 Last Documented On 8 8:33AM ; [facility] Result: normal 03/20/2017 Last Documented On 8 8:33AM ; [facility] Result: normal 03/20/2017 Last Documented On 8 8:33AM ; [facility] PRIMARY CARE PROVIDER : prakash Buitrago Last Documented On 8 8:33AM ; [facility] section x 2 01/19/2016 Last Documented On 8 8:33AM ; [facility] Status post tubal ligation 01/19/2016 Last Documented On 8 8:33AM ; [facility] ovarian cysts 05/13/2015 Last Documented On 8 8:33AM ; [facility] MULTIPLE SCLEROSIS 02/24/2015 Last Documented On 8 8:33AM ; [facility] History of hypothyroidism 02/24/2015 Last Documented On 8 8:33AM ; [facility] No recent change in medical history 02/01 Last Documented On 8 8:33AM ; [facility] Family History Includes: Family History addressed during this encounter Description Last Updated Maternal history of hypertension mom Last Documented On 8 8:33AM ; [facility] Maternal history of hypercholesterolemia mom 06/24/2015 Last Documented On 8 8:33AM ; [facility] Paternal history of diabetes mellitus da d 06/24/2015 Last Documented On 8 8:33AM ; [facility] Paternal history of family history of he art disease dad 06/24/2015 Last Documented On 8 8:33AM ; [facility] Family history unchanged 02/24/2015 Last Documented On 8 8:33AM ; [facility] Family history of diabetes mellitus dad 02/24/2015 Last Documented On 8 8:33AM ; [facility] Family history of heart disease dad 02/01 Last Documented On 8 8:33AM ; [facility] Family history of hypercholesterolemia m om 02/24/2015 Last Documented On 8 8:33AM ; [facility] Family history of hypertension mom 02/24 Last Documented On 8 8:33AM ; [facility] Review of Systems Includes: Review of Systems from this encounter Systemic: No fever and no chills. Cardiovascular: No chest pain or discomfort. Pulmonary: No dyspnea. Gastrointestinal: No nausea and no vomiting. Neurological: No dizziness. Skin: No skin lesions and no rash. Mental Status Includes: Mental Status from this encounter No Mental Status Recorded Functional Status Includes: Functional Status from this encounter No Functional Status Recorded Physical Exam Includes: Physical Exam from this encounter Allergies Includes: Active Allergies Substance Type Reaction Onset Date Resolved Date Statu s Codeine and Related Allergy Skin Rashes / Eruption of skin 03/20/2017 Active Last Documented On 9 9:47AM ; [facility] Encounters Encounter Provider Location Date Check-In Time Check- Out Time Diagnosis 1 WK CK-UP JASE MAGANA RN [facility] [employer] 8 8:33AM 8:50AM Breast Lump Or Mass Insurance Includes: Active Insurance Policies Plan Name Member ID Group # Subscriber Relationship Effect wesly Dates 1 - [facility] [id number] ELVIRA Moy 2 - [facility] [id number] ELVIRA Moy Clinical Notes Includes: Clinical Notes from this encounter No Clinical Notes Recorded
--- OUTSIDE RECORDS SUMMARY | 2024-08-26 18:27 | XMS_ITS | Clinical Summary ---
Author Organization [facility] Address [address] [place] [address] Phone Care Team Providers Care Gas Desulfurizer Name Role Phone KIYA BUITRAGO NP Primary Care Provider [phone] LELA MCCANN, HENRI Jackson Unavailable [phone] Reason for Referral Date Encounter Description Provider Reason for Referral 03/26/19 WELL WOMAN EXAM JASE MAGANA RN [facility] Request Consultation By Specialist Reason for Visit and Chief Complaint gynecologic annual exam - The Chief Complaint is: Well women exam-Pt states that she does have any problems Problems Includes: Problems addressed during this encounter and other active Problems Current Visit Onset Date Resolved Date Provider [place] Status Reported Family History of Heart Disease 02/24/2015 JASE MAGANA RN [facility] Active Last Documented On 02/24/2015 1:16PM ; [facility] Note: Unchanged - dad History of Hypothyroidism 02/24/2015 JASE MAGANA RN [facility] Active Last Documented On 02/24/2015 1:16PM ; [facility] Note: Unchanged History of Tubal Ligation 02/24/2015 JASE MAGANA RN [facility] Active Last Documented On 02/24/2015 1:16PM ; [facility] Note: Unchanged Multiple Sclerosis 02/24/2015 JASE DUPONT RN [facility] Active Last Documented On 5 1:17PM ; [facility] Plan of Treatment - Weight loss diet - Last Documented On 03/26/2019 10:33AM ; [facility] - Clinical summary provided to patient - Last Documented On 03/26/2019 10:33AM ; [facility] - Transition in care, clinical summary provided - Last Documented On 03/26/2019 10:33AM ; [facility] - Request consultation by specialist - Last Documented On 03/26/2019 10:33AM ; [facility] PT TO CALL WITH ANY CHANGE IN STATUS ALL QUESTIONS ANSWERED WITH UNDERSTANDING VERBALIZED BY PT. - Last Documented On 03/26/2019 10:33AM ; [facility] Pending Tests Order Diagnosis Results Due Ordering P rovider Radiology @ other - *MAMMOGRAPHY SCREENING MAMMOGRAM Encntr screen mammogram for malignant neoplasm of breast 04/09/19 JASE MAGANA RN [facility] Last Documented On 0 1:49PM ; [facility] Referrals To Diagnosis Neurologist [place] [address] - Multiple sclerosis Last Documented On 0 10:43AM ; [facility] Instructions to patient Lose weight Last Documented On 9 10:09AM ; [facility] Instructed to call if excess wesly bleeding or abdominal/pelvic pain Last Documented On 9 10:09AM ; [facility] Instructions For Patient: Mo nthly Self Breast Exam Last Documented On 9 10:09AM ; [facility] Recommend diet and exercise at least 30 min three times per week Last Documented On 9 10:09AM ; [facility] Education and Decision Aids were provided during visit for: Patient Education: Daily emily cium and vitamin D Last Documented On 9 10:09AM ; [facility] Assessments Includes: Assessments from this encounter Findings - NORMAL FEMALE EXAM - Last Documented On 03/26/2019 10:33AM ; [facility] - Multiple sclerosis - Last Documented On 03/26/2019 10:33AM ; [facility] - Screen malignant neoplasm cervix - Last Documented On 03/26/2019 10:33AM ; [facility] Instructions Includes: Instructions from this encounter Instructions to patient Lose weight Last Documented On 9 10:09AM ; [facility] Instructed to call if excess wesly bleeding or abdominal/pelvic pain Last Documented On 9 10:09AM ; [facility] Instructions For Patient: Mo nthly Self Breast Exam Last Documented On 9 10:09AM ; [facility] Recommend diet and exercise at least 30 min three times per week Last Documented On 9 10:09AM ; [facility] Education and Decision Aids were provided during visit for: Patient Education: Daily emily cium and vitamin D Last Documented On 9 10:09AM ; [facility] Medical Equipment - Implanted Devices Includes: Current Devices No Medical Equipment Recorded Medications Includes: Medications discussed during this encounter and other current Medications Current Medications (continue as prescribed) Augmentin 875-125MG Oral Tablet 03/20/2017 Provider: Diagnosis: for 10 days for sinus infection Last Documented On 7 10:12AM By ABHINAV CHERY ; [facility] SM Echinacea 125MG Oral Tablet 03/20/2017 Provider: Diagnosis: Last Documented On 7 10:12AM By ABHINAV CHERY ; [facility] Turmeric 500MG Oral Capsule, conventional 03/20/2017 Provider: Diagnosis: Last Documented On 7 10:13AM By ABHINAV CHERY ; [facility] Jessie Allergy 180MG Oral Tablet 03/20/2017 Provide r: Diagnosis: Last Documented On 7 10:13AM By ABHINAV CHERY ; [facility] Buffered Vitamin C 1000MG Oral Capsule, conventional 0 03/20/2017 Provider: Diagnosis: Last Documented On 7 10:11AM By ABHINAV CHERY ; [facility] Digestive Probiotic Oral Capsule, conventional Provider: Diagnosis: Last Documented On 7 10:11AM By ABHINAV CHERY ; [facility] B Complex-B12 Tablet 03/17/2016 Provider: Diagnosis: Last Documented On 03/17/2016 3:22PM By VINNIE YAP MA ; [facility] SM Vitamin D3 1000 UNIT Tablet 03/17/2016 Provider: Diagnosis: Last Documented On 03/17/2016 3:22PM By VINNIE YAP MA ; [facility] Daily Value Multivitamin Tablet 03/17/2016 Provider: Diagnosis: Last Documented On 03/17/2016 3:22PM By VINNIE YAP MA ; [facility] Singulair 4 MG Tablet, chewable 03/17/2016 Provider: Diagnosis: Last Documented On 03/17/2016 3:21PM By VINNIE YAP MA ; [facility] Flonase 50 MCG/ACT Suspension 02/24/2015 Provider: Diagnosis: Last Documented On 5 1:10PM By MAX CHERY ; [facility] Levothyroxine Sodium 100 MCG Tablet 02/24/2015 Provi danny: Diagnosis: Last Documented On 5 12:58PM By MAX CHERY ; [facility] Past Medications on file Nystatin [id number] UNIT/GM External Cream 03/30/2020 - 04/20/2020 Provider: JASE SMITH BC Diagnosis: Candidiasis of s kin and nail as directed THREE TIMES A DA Y TO AFFECTED AREAS Last Documented On 0 10:49AM By JASE JACOBS ; [facility] Ibuprofen 800MG Oral Tablet 03/22/2018 - 04/05/2018 Provider: JASE SMITH BC Diagnosis: Insect bite (nonvenomous) of breast, left breast, init One tablet three times a day TAKE DIRECTED W/FOOD Last Documented On 8 8:38AM By JASE JACOBS ; [facility] Sulfamethoxazole-Trimethopri m 800-160MG Oral Tablet 03/22/2018 - 03/29/2018 Provider: JASE SMITH BC Diagnosis: Insect bite (nonvenomous) of breast, left breast, init One tablet twice a day ONE TAB 2 TIMES A DAY WIT H FOOD Last Documented On 8 8:38AM By JASE JACOBS ; [facility] Sprintec 28 0.25-35MG-MCG Oral Tablet 03/22/2018 - 03/17/2019 Provider: JASE SMITH BC Diagnosis: Other specified abnormal uterine and vaginal bleeding One tablet daily Last Documented On 8 8:38AM By JASE JACOBS ; [facility] Naproxen 500MG Oral Tablet 03/15/2018 - 03/22/2018 Provider: JASE SMITH BC Diagnosis: Insect bite (nonvenomous) of breast, left breast, init One tablet twice a day ONE T AB TWICE A DAY WITH FOOD DON'T EXCEED 2 TABS IN 24 HOURS Last Documented On 8 9:11AM By JASE JACOBS ; [facility] Fluconazole 150MG Oral Tablet 03/15/2018 - 03/22/2018 Provider: JASE MAGANA RN [facility] Diagnosis: Insect bite (nonvenomous) of breast, left breast, init as directed take one tablet day 4 and one tablet day 7 of antibiotics Last Documented On 8 9:11AM By JASE JACOBS ; [facility] Amoxicillin-Pot Clavulanate 875-125MG Oral Tablet 03/15/2018 - 03/22/2018 Provider: JASE MAGANA RN [facility] Diagnosis: Insect bite (nonvenomous) of breast, left breast, init One tablet twice a day Last Documented On 8 9:11AM By JASE JACOBS ; [facility] Lo Loestrin Fe 1 MG-10 MCG /10 MCG Oral Tablet 03/20/2017 - 05/15/2017 Provider: JASE MAGANA RN [facility] Diagnosis: Excessive and fr equent menstruation with regular cycle One tablet daily USE DIRECTED Last Documented On 7 10:42AM By JASE JACOBS ; [facility] Medications Administered Includes: Administered Medications from this encounter No Administered Medications Recorded Vital Signs Includes: Vital Signs from this encounter Vital Name 03/26/2019 09:47A Blood Pressure Sitting L 108/82 BP Cuff Size Regular Height (in) 59 Weight (lb) 161 Body Mass Index (kg/m2) 32.5 Body Surface Area (m2) 1.7 Last Documented: On 03/26/2019 9:51AM ; [facility] Results Includes: Results discussed during this encounter No Results Recorded For Specified Dates History of Present Illness Includes: History of Present Illness from this encounter JUANITA WORTHINGTON is a 48 year old female. - Allergy list reviewed - Medication list reviewed - Medication reconciliation performed Pt states she didn't obtain any f/u breast scans d/t loss of insurance, but admits no further mass or mastitis sx. Pt would like referral for neurologist that takes her insurance for MS mgt. Social History Description Last Updated Activities 03/26/2019 Last Documented On 9 10:33AM ; [facility] Alcohol use: 2 drinks or less per day no ne 03/26/2019 Last Documented On 9 10:33AM ; [facility] Education history 03/26/2019 Last Documented On 9 10:33AM ; [facility] Exercising regularly 03/26/2019 Last Documented On 9 10:33AM ; [facility] Non-smoker 03/26/2019 Last Documented On 9 10:33AM ; [facility] Not a smoker 03/26/2019 Last Documented On 9 10:33AM ; [facility] Not using alcohol 03/26/2019 Last Documented On 9 10:33AM ; [facility] Not using drugs 03/26/2019 Last Documented On 9 10:33AM ; [facility] Personal history 03/26/2019 Last Documented On 9 10:33AM ; [facility] Sexually active 03/26/2019 Last Documented On 9 10:33AM ; [facility] Single 03/26/2019 Last Documented On 9 10:33AM ; [facility] Smoking status : Never smoker 03/26/2019 Last Documented On 9 10:33AM ; [facility] Social history unchanged 03/26/2019 Last Documented On 9 10:33AM ; [facility] Procedures and Surgical History Includes: Procedures from this encounter Procedures Code Diagnosis Performing Provider Service L ocation Service Date education and instructions Last Documented On 9 10:09AM ; [facility] explanation of plan Last Documented On 9 10:09AM ; [facility] junk-free diet including sodas Last Documented On 9 10:09AM ; [facility] medical regimen review Last Documented On 9 10:09AM ; [facility] Urged Exercise and Diet , exercise at le ast 30 min three times per week Last Documented On 9 10:09AM ; [facility] Clinical summary provided to patient Last Documented On 9 10:09AM ; [facility] Clinical summary transmitted to referring provider electronically with reasonable certainty of receipt Last Documented On 9 10:32AM ; [facility] cervical Pap smear [id number] Last Documented On 9 10:09AM ; [facility] FIT Test-Fecal Occult negative [id number] Last Documented On 9 10:09AM ; [facility] Surgical History Last Updated Surgical / procedural history c/s x2 Last Documented On 9 9:46AM ; [facility] Previous colposcopy 04/15/2010 5 Last Documented On 9 9:46AM ; [facility] Surgical history unchanged 02/24/2015 Last Documented On 9 9:46AM ; [facility] History of cholecystectomy 02/24/2015 Last Documented On 9 9:46AM ; [facility] History of tubal ligation 02/24/2015 Last Documented On 9 9:46AM ; [facility] Medical History Includes: Medical History addressed during this encounter Description Last Updated Not sexually active 1 partner 03/26/2019 Last Documented On 9 10:33AM ; [facility] Last pap smear date 03/22/2018 03/26/2019 Last Documented On 9 10:33AM ; [facility] Contraception: OCP/tubal 03/22/2018 Last Documented On 9 9:46AM ; [facility] Last mammogram date: 04/07/2017 03/22/20 18 Last Documented On 9 9:46AM ; [facility] LMP: 2017 03/15/2018 Last Documented On 9 9:46AM ; [facility] History of dysfunctional uterine bleedin g 03/20/2017 Last Documented On 9 9:46AM ; [facility] Aborta 1 03/20/2017 Last Documented On 9 9:46AM ; [facility] 3 03/20/2017 Last Documented On 9 9:46AM ; [facility] Para 2 03/20/2017 Last Documented On 9 9:46AM ; [facility] Result: normal 03/20/2017 Last Documented On 9 9:46AM ; [facility] Result: normal 03/20/2017 Last Documented On 9 9:46AM ; [facility] PRIMARY CARE PROVIDER : prakash Buitrago Last Documented On 9 9:46AM ; [facility] section x 2 01/19/2016 Last Documented On 9 9:46AM ; [facility] Status post tubal ligation 01/19/2016 Last Documented On 9 9:46AM ; [facility] ovarian cysts 05/13/2015 Last Documented On 9 9:46AM ; [facility] MULTIPLE SCLEROSIS 02/24/2015 Last Documented On 9 9:46AM ; [facility] History of hypothyroidism 02/24/2015 Last Documented On 9 9:46AM ; [facility] No recent change in medical history 02/01 Last Documented On 9 9:46AM ; [facility] Family History Includes: Family History addressed during this encounter Description Last Updated Maternal history of hypertension mom Last Documented On 9 9:46AM ; [facility] Maternal history of hypercholesterolemia mom 06/24/2015 Last Documented On 9 9:46AM ; [facility] Paternal history of diabetes mellitus da d 06/24/2015 Last Documented On 9 9:46AM ; [facility] Paternal history of family history of he art disease dad 06/24/2015 Last Documented On 9 9:46AM ; [facility] Family history unchanged 02/24/2015 Last Documented On 9 9:46AM ; [facility] Family history of diabetes mellitus dad 02/24/2015 Last Documented On 9 9:46AM ; [facility] Family history of heart disease dad 02/01 Last Documented On 9 9:46AM ; [facility] Family history of hypercholesterolemia m om 02/24/2015 Last Documented On 9 9:46AM ; [facility] Family history of hypertension mom 02/24 Last Documented On 9 9:46AM ; [facility] Review of Systems Includes: Review of Systems from this encounter Systemic: Feeling fine. No symptoms and not tiring easily. No fever, no chills, no [...] and a desire to continue living. Skin: No pruritus. No skin lesions and no rash. Mental [...] Active Last Documented On 9 9:47AM ; [facility] Encounters Encounter Provider Location Date Check-In Time Check-Out Time Diagnosis WELL WOMAN EXAM JASE MAGANA RN [facility] RECREATION TECHNICIAN 03/26/20 19 9:36AM 10:28AM Screen Malignant Neoplasm Cervix,Normal Female Exam,Multiple Sclerosis Insurance Includes: Active Insurance Policies Plan Name Member ID Group # Subscriber Relationship Effect wesly Dates 1 - [facility] [id number] ELVIRA WORTHINGTON Self 2 - [facility] [id number] ELVIRA WORTHINGTON Self Clinical Notes Includes: Clinical Notes from this encounter No Clinical Notes Recorded
[2024-08-26 22:28] LABS: Add Urine Microscopic? NO; Appearance Urine Clear (Clear); Bilirubin Urine Negative (Negative); Blood Urine Negative (Negative); Color Urine Yellow (Yellow); Glucose Urine UA Negative (Negative); Ketones Urine Negative (Negative); Leukocyte Esterase Ur Negative LEU/UL (Negative); Nitrate Urine Negative (Negative); Protein Urine Negative (Negative); Specific Grav Ur 1.024 (1.001-1.035)
[2024-08-26 22:54] VITALS: PULSE 56
--- OUTSIDE RECORDS SUMMARY | 2024-08-26 23:24 | XMS_ITS ---
Author Organization [facility] Address [address] [place] [address] Phone Care Team Providers Care Water Quality Analyst Name Role Phone KIYA BUITRAGO NP Primary Care Provider [phone] LELA MCCANN, HENRI Jackson Unavailable [phone] Reason for Referral Date Encounter [...] Resolved Last Documented On 03/30/2020 10:31AM ; [facility] Note: Unchanged - -- pt states [...] Active Last Documented On 02/24/2015 1:16PM ; [facility] Note: Unchanged - dad History of Hypothyroidism 02/24/2015 JASE SMITH Active Last Documented On 02/24/2015 1:16PM ; [facility] Note: Unchanged History of Tubal Ligation 02/24/2015 JASE MAGANA RN [facility] Active Last Documented On 02/24/2015 1:16PM ; [facility] Note: Unchanged Multiple Sclerosis 02/24/2015 JASE DUPONT RN [facility] Active Last Documented On 5 1:17PM ; [facility] Plan of Treatment Findings Encounter Date Ordered Clinical summary pro vided to patient WELL WOMAN EXAM with JASE MAGANA RN [facility] 03/30/2020 Last Documented On 0 10:47AM ; [facility] Ordered weight loss diet WELL WOMAN EXAM with SONAL MAGANA RN [facility] 03/30/2020 Last Documented On 0 10:47AM ; [facility] Ordered Clinical summary pro vided to patient WELL WOMAN EXAM with JASE MAGANA RN [facility] 03/26/2019 Last Documented On 9 10:33AM ; [facility] Ordered Transition in care, clinical summary provided WELL WOMAN EXAM with JASE MAGANA RN [facility] 03/26/2019 Last Documented On 9 10:33AM ; [facility] Ordered weight loss diet WELL WOMAN EXAM with SONAL MAGANA RN [facility] 03/26/2019 Last Documented On 9 10:33AM ; [facility] Requested request consultati on by specialist WELL WOMAN EXAM with JASE MAGANA RN [facility] 03/26/2019 Last Documented On 9 10:33AM ; [facility] Ordered Transition in care, clinical summary provided 1 WK CK-UP with JASE MAGANA RN [facility] 03/29/2018 Last Documented On 8 9:54AM ; [facility] Requested request consultati on by specialist 1 WK CK-UP with JASE MAGANA RN [facility] 03/29/2018 Last Documented On 8 9:54AM ; [facility] Ordered Clinical summary pro vided to patient AUTOMOBILE INSURANCE CLAIM EXAMINER EXAM with JASE MAGANA RN [facility] 03/22/2018 Last Documented On 8 8:35AM ; [facility] Ordered weight loss diet AUTOMOBILE INSURANCE CLAIM EXAMINER EXAM with JASE DUPONT RN [facility] 03/22/2018 Last Documented On 8 8:35AM ; [facility] Ordered Clinical summary pro vided to patient 2 MONTH CHECK with JASE MAGANA RN [facility] 06/07/2017 Last Documented On 7 3:21PM ; [facility] Ordered Clinical summary pro vided to patient AUTOMOBILE INSURANCE CLAIM EXAMINER EXAM with JASE MAGANA RN [facility] 03/20/2017 Last Documented On 7 10:50AM ; [facility] Ordered weight loss diet AUTOM[employer] INSURANCE CLAIM EXAMINER EXAM with JASE DUPONT RN [facility] 03/20/2017 Last Documented On 7 10:50AM ; [facility] Ordered Clinical summary pro vided to patient ANNUAL BRAILLE TYPIST EXAM with JASE MAGANA RN [facility] 03/17/2016 Last Documented On 6 11:24AM ; [facility] Follow-up for re-examination for 3 months with a BP check and on OCP's 3 MONTH CHECK with HENRI VOGEL MD 10/20/2015 Last Documented On 6 10:11AM ; [facility] Ordered patient to call if p kyleem develops 3 MONTH CHECK with HENRI VOGEL MD 10/20/2015 Last Documented On 6 10:11AM ; [facility] She will keep a menstrual diary 3 MONTH CHECK wi HENRI VOGEL MD 10/20/2015 Last Documented On 6 10:11AM ; [facility] Ordered Clinical summary pro vided to patient PROBLEM VISIT with JASE MAGANA RN [facility] 05/13/2015 Last Documented On 5 2:50PM ; [facility] Ordered Clinical summary pro vided to patient NEW AUTOMOBILE INSURANCE CLAIM EXAMINER EXAM with JASE MAGANA RN [facility] 02/24/2015 Last Documented On 5 1:38PM ; [facility] Referrals To Diagnosis General Surgery [place] [address] - Unspecified lump in the left breast, unspecified quadrant Note: L breast mass x 3 week s below areola, some reduction in size w/antibiotic course. L breast diagnostic mammogram and U/S ordered Last Documented On 9 10:29AM ; [facility] Neurologist [place] [address] - Multiple sclerosis Last Documented On 0 10:43AM ; [facility] Instructions to patient Instructed to call if excess wesly bleeding or abdominal/pelvic pain Last Documented On 0 10:32AM ; [facility] Instructions For Patient: Mo nthly Self Breast Exam Last Documented On 0 10:32AM ; [facility] Recommend diet and exercise at least 30 min three times per week Last Documented On 0 10:32AM ; [facility] Lose weight Last Documented On 9 10:09AM ; [facility] Instructed to call if excess wesly bleeding or abdominal/pelvic pain Last Documented On 9 10:09AM ; [facility] Instructions For Patient: Mo nthly Self Breast Exam Last Documented On 9 10:09AM ; [facility] Recommend diet and exercise at least 30 min three times per week Last Documented On 9 10:09AM ; [facility] Lose weight Last Documented On 8 8:07AM ; [facility] Instructed to call if excess wesly bleeding or abdominal/pelvic pain Last Documented On 8 8:07AM ; [facility] Instructions For Patient: Mo nthly Self Breast Exam Last Documented On 8 8:07AM ; [facility] Recommend diet and exercise at least 30 min three times per week Last Documented On 8 8:07AM ; [facility] Instructions for patient ER if dizzy, vomiting or light-headed due to heavy bleeding Last Documented On 7 10:47AM ; [facility] Instructions for patient ER if bleeding through reg. sized pad/tampon < 1 hour Last Documented On 7 10:47AM ; [facility] Instructions for patient : p atient is to keep a menstrual diary to help with further evaluation and treatment Last Documented On 7 10:47AM ; [facility] Lose weight Last Documented On 7 10:19AM ; [facility] Instructed to call if excess wesly bleeding or abdominal/pelvic pain Last Documented On 7 10:19AM ; [facility] Instructions For Patient: Mo nthly Self Breast Exam Last Documented On 7 10:19AM ; [facility] Recommend diet and exercise at least 30 min three times per week Last Documented On 7 10:19AM ; [facility] Instructions for patient : B reast Self Exam discussed and technique reviewed Last Documented On 6 3:31PM ; [facility] Use a condom during sexual i ntercourse Last Documented On 6 3:31PM ; [facility] Instructed to call if excess wesly bleeding or abdominal/pelvic pain Last Documented On 6 3:31PM ; [facility] Recommend diet and exercise at least 30 min three times per week Last Documented On 6 3:31PM ; [facility] Instructions for patient : p atient is to keep a menstrual diary to help with further evaluation and treatment Last Documented On 5 2:42PM ; [facility] Instructions for patient ER if bleeding through reg. sized pad/tampon < 1 hour Last Documented On 5 2:42PM ; [facility] Instructions for patient : B reast Self Exam discussed and technique reviewed Last Documented On 5 1:15PM ; [facility] Use a condom during sexual i ntercourse Last Documented On 5 1:15PM ; [facility] Instructed to call if excess welsy bleeding or abdominal/pelvic pain Last Documented On 5 1:15PM ; [facility] Recommend diet and exercise at least 30 min three times per week Last Documented On 5 1:15PM ; [facility] Recommend preventative vacci nation including but not limited to influenza/flu vaccine, DTP, Rubella, Hepatitis B vaccination series Last Documented On 5 1:15PM ; [facility] Education and Decision Aids were provided during visit for: Patient Education: Daily emily cium and vitamin D Last Documented On 0 10:32AM ; [facility] Patient Education: Daily emily cium and vitamin D Last Documented On 9 10:09AM ; [facility] Patient education RE: cherrin g signals associated with hormonal contraceptive use including abdominal, chest, or leg pain, headaches or visual disturbances Last Documented On 8 8:07AM ; [facility] Patient Education: Daily emily cium and vitamin D Last Documented On 8 8:07AM ; [facility] Patient counseling : Use of contraceptives discussed in detail including rare occurrence of heart attack, stroke, and leg clots. Patient understands that smoking increases the risk of serious side effects with any steroid-based contraceptive method Last Documented On 7 3:09PM ; [facility] Patient education RE: warnin g signals associated with hormonal contraceptive use including abdominal, chest, or leg pain, headaches or visual disturbances Last Documented On 7 10:19AM ; [facility] Patient Education: Daily emily cium and vitamin D Last Documented On 7 10:19AM ; [facility] Patient education RE: cherrin g signals associated with hormonal contraceptive use including abdominal, chest, or leg pain, headaches or visual disturbances Last Documented On 6 3:31PM ; [facility] Patient Education: Daily emily cium and vitamin D Last Documented On 6 3:31PM ; [facility] She will keep a menstrual di agustin Last Documented On 6 10:03AM ; [facility] INFORMED CONSENT DISCUSSION: Endometrial biopsy was discussed in detail including risk of bleeding, infection, discomfort, insufficient specimen with need to repeat test, and rare incidence of uterine perforation. Patient expressed understanding of the above and consented to the procedure Last Documented On 5 9:41AM ; [facility] Patient Education: Daily emily cium and vitamin D Last Documented On 5 1:15PM ; [facility] Assessments Includes: Assessments for all patient encounters Findings Encounter Date Cutaneous candidiasis WELL WOMAN EXAM with JASE MAGANA RN [facility] 03/30/2020 Last Documented On 0 10:47AM ; [facility] Routine gynecological exam w ith abnormal findings WELL WOMAN EXAM with JASE MAGANA RN [facility] 03/30/2020 Last Documented On 0 10:47AM ; [facility] Screen malignant neoplasm cervix WELL WO MAN EXAM with JASE MAGANA RN [facility] 03/30/2020 Last Documented On 0 10:47AM ; [facility] Multiple sclerosis WELL WOMAN EXAM with JASE MAGANA RN [facility] 03/26/2019 Last Documented On 9 10:33AM ; [facility] NORMAL FEMALE EXAM WELL WOMAN EXAM with JASE MAGANA RN [facility] 03/26/2019 Last Documented On 9 10:33AM ; [facility] Screen malignant neoplasm cervix WELL WO MAN EXAM with JASE MAGANA RN [facility] 03/26/2019 Last Documented On 9 10:33AM ; [facility] Lump or mass in breast r/o a bcess s/p insect bite 1 WK CK-UP with JASE MAGANA RN [facility] 03/29/2018 Last Documented On 8 9:54AM ; [facility] NORMAL FEMALE EXAM AUTOMOBILE INSURANCE CLAIM EXAMINER EXAM with JASE Funes [facility] 03/22/2018 Last Documented On 8 8:35AM ; [facility] Screen malignant neoplasm cervix AUTOMOBILE INSURANCE CLAIM EXAMINER EXAM with Manuel MAGANA RN [facility] 03/22/2018 Last Documented On 8 8:35AM ; [facility] Nonvenomous insect bite of left breast P ROBLEM VISIT with JASE MAGANA RN [facility] 03/15/2018 Last Documented On 8 9:13AM ; [facility] Encounter for contraceptive surveillance, unspecified 2 MONTH CHECK with JASE MAGANA RN [facility] 06/07/2017 Last Documented On 7 3:21PM ; [facility] NORMAL FEMALE EXAM AUTOMOBILE INSURANCE CLAIM EXAMINER EXAM with JASE Funes [facility] 03/20/2017 Last Documented On 7 10:50AM ; [facility] Screen malignant neoplasm cervix AUTOMOBILE INSURANCE CLAIM EXAMINER EXAM with Manuel MAGANA RN [facility] 03/20/2017 Last Documented On 7 10:50AM ; [facility] Encounter for contraceptive pill surveillance BLOOD PRESSURE CHECK-UP with HENRI VOGEL MD 10/28/2016 Last Documented On 7 11:48AM ; [facility] Menorrhagia BLOOD PRESSURE CHECK-UP with HENRI VOGEL MD 10/28/2016 Last Documented On 7 11:48AM ; [facility] Assessment of menorrhagia BLOOD PRESSURE CHECK-U P with HENRI VOGEL MD 07/18/2016 Last Documented On 7 9:00AM ; [facility] Encounter for contraceptive pill surveillance BLOOD PRESSURE CHECK-UP with HENRI VOGEL MD 07/18/2016 Last Documented On 7 9:00AM ; [facility] Dysmenorrhea PREOP EXAM with HENRI Estevez 04/15/2016 Last Documented On 6 10:44AM ; [facility] Menorrhagia PREOP EXAM with HENRI Estevez 04/15/2016 Last Documented On 6 10:44AM ; [facility] NORMAL FEMALE EXAM ANNUAL BRAILLE TYPIST EXAM with JASE MAGANA RN [facility] 03/17/2016 Last Documented On 6 11:24AM ; [facility] Screen malignant neoplasm cervix ANNUAL BRAILLE TYPIST EXAM with JASE MAGANA RN [facility] 03/17/2016 Last Documented On 6 11:24AM ; [facility] Assessment of menorrhagia 3 MONTH CHECK with HENRI VOGEL MD 01/19/2016 Last Documented On 6 3:43PM ; [facility] Encounter for contraceptive pill surveillance 3 MONTH CHECK with HENRI VOGEL MD 01/19/2016 Last Documented On 6 3:43PM ; [facility] Menorrhagia 3 MONTH CHECK with HENRI Morris MD 10/20/2015 Last Documented On 6 10:11AM ; [facility] Menorrhagia 2 WK CK-UP with HENRI Estevez 07/10/2015 Last Documented On 6 11:51AM ; [facility] Menorrhagia ENDOMETRIAL BIOPSY with HENRI GUERRERO MD 06/24/2015 Last Documented On 5 10:03AM ; [facility] Menorrhagia PROBLEM VISIT with JASE MAGANA RN [facility] 05/13/2015 Last Documented On 5 2:50PM ; [facility] Routine gynecological exam NEW AUTOMOBILE INSURANCE CLAIM EXAMINER EXAM with SCOTTY MAGANA RN [facility] 02/24/2015 Last Documented On 5 1:38PM ; [facility] SCREENING FOR STD NEW AUTOMOBILE INSURANCE CLAIM EXAMINER EXAM with JASE Fletcher RN [facility] 02/24/2015 Last Documented On 5 1:38PM ; [facility] Screening Malig. Neoplasm Rectum NEW AUTOMOBILE INSURANCE CLAIM EXAMINER EXAM with JASE MAGANA RN [facility] 02/24/2015 Last Documented On 5 1:38PM ; [facility] Instructions Includes: Instructions for all patient encounters Instructions to patient Instructed to call if excess wesly bleeding or abdominal/pelvic pain Last Documented On 0 10:32AM ; [facility] Instructions For Patient: Mo nthly Self Breast Exam Last Documented On 0 10:32AM ; [facility] Recommend diet and exercise at least 30 min three times per week Last Documented On 0 10:32AM ; [facility] Lose weight Last Documented On 9 10:09AM ; [facility] Instructed to call if excess wesly bleeding or abdominal/pelvic pain Last Documented On 9 10:09AM ; [facility] Instructions For Patient: Mo nthly Self Breast Exam Last Documented On 9 10:09AM ; [facility] Recommend diet and exercise at least 30 min three times per week Last Documented On 9 10:09AM ; [facility] Lose weight Last Documented On 8 8:07AM ; [facility] Instructed to call if excess wesly bleeding or abdominal/pelvic pain Last Documented On 8 8:07AM ; [facility] Instructions For Patient: Mo nthly Self Breast Exam Last Documented On 8 8:07AM ; [facility] Recommend diet and exercise at least 30 min three times per week Last Documented On 8 8:07AM ; [facility] Instructions for patient ER if dizzy, vomiting or light-headed due to heavy bleeding Last Documented On 7 10:47AM ; [facility] Instructions for patient ER if bleeding through reg. sized pad/tampon < 1 hour Last Documented On 7 10:47AM ; [facility] Instructions for patient : p atient is to keep a menstrual diary to help with further evaluation and treatment Last Documented On 7 10:47AM ; [facility] Lose weight Last Documented On 7 10:19AM ; [facility] Instructed to call if excess wesly bleeding or abdominal/pelvic pain Last Documented On 7 10:19AM ; [facility] Instructions For Patient: Mo nthly Self Breast Exam Last Documented On 7 10:19AM ; [facility] Recommend diet and exercise at least 30 min three times per week Last Documented On 7 10:19AM ; [facility] Instructions for patient : B reast Self Exam discussed and technique reviewed Last Documented On 6 3:31PM ; [facility] Use a condom during sexual i ntercourse Last Documented On 6 3:31PM ; [facility] Instructed to call if excess wesly bleeding or abdominal/pelvic pain Last Documented On 6 3:31PM ; [facility] Recommend diet and exercise at least 30 min three times per week Last Documented On 6 3:31PM ; [facility] Instructions for patient : p atient is to keep a menstrual diary to help with further evaluation and treatment Last Documented On 5 2:42PM ; [facility] Instructions for patient ER if bleeding through reg. sized pad/tampon < 1 hour Last Documented On 5 2:42PM ; [facility] Instructions for patient : B reast Self Exam discussed and technique reviewed Last Documented On 5 1:15PM ; [facility] Use a condom during sexual i ntercourse Last Documented On 5 1:15PM ; [facility] Instructed to call if excess wesly bleeding or abdominal/pelvic pain Last Documented On 5 1:15PM ; [facility] Recommend diet and exercise at least 30 min three times per week Last Documented On 5 1:15PM ; [facility] Recommend preventative vacci nation including but not limited to influenza/flu vaccine, DTP, Rubella, Hepatitis B vaccination series Last Documented On 5 1:15PM ; [facility] Education and Decision Aids were provided during visit for: Patient Education: Daily emily cium and vitamin D Last Documented On 0 10:32AM ; [facility] Patient Education: Daily emily cium and vitamin D Last Documented On 9 10:09AM ; [facility] Patient education RE: cherrin g signals associated with hormonal contraceptive use including abdominal, chest, or leg pain, headaches or visual disturbances Last Documented On 8 8:07AM ; [facility] Patient Education: Daily emily cium and vitamin D Last Documented On 8 8:07AM ; [facility] Patient counseling : Use of contraceptives discussed in detail including rare occurrence of heart attack, stroke, and leg clots. Patient understands that smoking increases the risk of serious side effects with any steroid-based contraceptive method Last Documented On 7 3:09PM ; [facility] Patient education RE: whitneynin g signals associated with hormonal contraceptive use including abdominal, chest, or leg pain, headaches or visual disturbances Last Documented On 7 10:19AM ; [facility] Patient Education: Daily emily cium and vitamin D Last Documented On 7 10:19AM ; [facility] Patient education RE: cherrin g signals associated with hormonal contraceptive use including abdominal, chest, or leg pain, headaches or visual disturbances Last Documented On 6 3:31PM ; [facility] Patient Education: Daily emily cium and vitamin D Last Documented On 6 3:31PM ; [facility] She will keep a menstrual di agustin Last Documented On 6 10:03AM ; [facility] INFORMED CONSENT DISCUSSION: Endometrial biopsy was discussed in detail including risk of bleeding, infection, discomfort, insufficient specimen with need to repeat test, and rare incidence of uterine perforation. Patient expressed understanding of the above and consented to the procedure Last Documented On 5 9:41AM ; [facility] Patient Education: Daily emily cium and vitamin D Last Documented On 5 1:15PM ; [facility] Medical Equipment - Implanted Devices Includes: Current and historical Devices No Medical Equipment Recorded Medications Includes: Current and historical Medications Current Medications (continue as prescribed) Augmentin 875-125MG Oral Tablet 03/20/2017 Provider: Diagnosis: for 10 days for sinus infection Last Documented On 7 10:12AM By ABHINAV CHERY ; [facility] SM Echinacea 125MG Oral Tablet 03/20/2017 Provider: Diagnosis: Last Documented On 7 10:12AM By ABHINAV CHERY ; [facility] [facility] Turmeric 500MG Oral Capsule, conventional 03/20/2017 Provider: Diagnosis: Last Documented On 7 10:13AM By ABHINAV CHERY ; [facility] Jessie Allergy 180MG Oral Tablet 03/20/2017 Provide r: Diagnosis: Last Documented On 7 10:13AM By ABHINAV CHERY ; [facility] Buffered Vitamin C 1000MG Oral Capsule, conventional 0 03/20/2017 Provider: Diagnosis: Last Documented On 7 10:11AM By ABHINAV CHERY ; [facility] CVS Digestive Probiotic Oral Capsule, conventional Provider: Diagnosis: Last Documented On 7 10:11AM By ABHINAV CHERY ; [facility] B Complex-B12 Tablet 03/17/2016 Provider: Diagnosis: Last Documented On 03/17/2016 3:22PM By VINNIE YAP MA ; [facility] Vitamin D3 1000 UNIT Tablet 03/17/2016 Provider: Diagnosis: Last Documented On 03/17/2016 3:22PM By VINNIE YAP MA ; [facility] Daily Value Multivitamin Tablet 03/17/2016 Provider: Diagnosis: Last Documented On 03/17/2016 3:22PM By VINNIE YAP MA ; [facility] Singulair 4 MG Tablet, chewable 03/17/2016 Provider: Diagnosis: Last Documented On 03/17/2016 3:21PM By VINNIE YAP MA ; [facility] Flonase 50 MCG/ACT Suspension 02/24/2015 Provider: Diagnosis: Last Documented On 5 1:10PM By MAX CHERY ; [facility] Levothyroxine Sodium 100 MCG Tablet 02/24/2015 Provi danny: Diagnosis: Last Documented On 5 12:58PM By MAX CHERY ; [facility] Past Medications on file Nystatin 256810 UNIT/GM External Cream 03/30/2020 - 04/20/2020 Provider: JASE SMITH BC Diagnosis: Candidiasis of s kin and nail as directed THREE TIMES A DA Y TO AFFECTED AREAS Last Documented On 0 10:49AM By JASE JACOBS ; [facility] Ibuprofen 800MG Oral Tablet 03/22/2018 - 04/05/2018 Provider: JASE SMITH BC Diagnosis: Insect bite (nonvenomous) of breast, left breast, init One tablet three times a day TAKE DIRECTED W/FOOD Last Documented On 8 8:38AM By JASE JACOBS ; [facility] Sulfamethoxazole-Trimethopri m 800-160MG Oral Tablet 03/22/2018 - 03/29/2018 Provider: JASE SMITH BC Diagnosis: Insect bite (nonvenomous) of breast, left breast, init One tablet twice a day ONE TAB 2 TIMES A DAY WIT H FOOD Last Documented On 8 8:38AM By JASE JACOBS ; [facility] Sprintec 28 0.25-35MG-MCG Oral Tablet 03/22/2018 - 03/17/2019 Provider: JASE SMITH BC Diagnosis: Other specified abnormal uterine and vaginal bleeding One tablet daily Last Documented On 8 8:38AM By JASE JACOBS ; [facility] Naproxen 500MG Oral Tablet 03/15/2018 - 03/22/2018 Provider: JASE SMITH BC Diagnosis: Insect bite (nonvenomous) of breast, left breast, init One tablet twice a day ONE T AB TWICE A DAY WITH FOOD DON'T EXCEED 2 TABS IN 24 HOURS Last Documented On 8 9:11AM By JASE JACOBS ; [facility] Fluconazole 150MG Oral Tablet 03/15/2018 - 03/22/2018 Provider: JASE SMITH BC Diagnosis: Insect bite (nonvenomous) of breast, left breast, init as directed take one tablet day 4 and one tablet day 7 of antibiotics Last Documented On 8 9:11AM By JASE JACOBS ; [facility] Amoxicillin-Pot Clavulanate 875-125MG Oral Tablet 03/15/2018 - 03/22/2018 Provider: JASE SMITH BC Diagnosis: Insect bite (nonvenomous) of breast, left breast, init One tablet twice a day Last Documented On 8 9:11AM By JASE JACOBS ; [facility] Sprintec 28 0.25-35MG-MCG Oral Tablet 06/07/2017 - 12/2016 Provider: Diagnosis: Last Documented On 7 3:11PM By JASE JACOBS ; [facility] Sprintec 28 0.25-35MG-MCG Oral Tablet 06/07/2017 - 03/22/2018 Provider: JASE SMITH BC Diagnosis: Encounter for surveillance of contraceptives, unspecified One tablet daily Last Documented On 8 8:24AM By JASE JACOBS ; [facility] Lo Loestrin Fe 1 MG-10 MCG /10 MCG Oral Tablet 03/20/2017 - 05/15/2017 Provider: JASE SMITH BC Diagnosis: Excessive and fr equent menstruation with regular cycle One tablet daily USE DIRECTED Last Documented On 7 10:42AM By JASE JACOBS ; [facility] Norgestimate-Eth Estradiol 0.25-35MG-MCG Oral Tablet 10/28/2016 - 03/22/2018 Provider: HENRI VOGEL MD Diagnosis: Excessive and fr equent menstruation with regular cycle One tablet daily Last Documented On 8 8:01AM By KAISER CHERY ; [facility] Norgestimate-Eth Estradiol 0.25-35 MG-MCG Tablet 07/18/2016 - 10/28/2016 Provider: HENRI VOGEL MD Diagnosis: Excessive and fr equent menstruation with regular cycle One tablet daily Last Documented On 10/28/2016 11:47AM By HENRI VOGEL MD ; [facility] Norgestimate-Eth Estradiol 0.25-35 MG-MCG Tablet 04/15/2016 - 07/18/2016 Provider: HENRI VOGEL MD Diagnosis: Excessive and fr equent menstruation with regular cycle One tablet daily Last Documented On 07/18/2016 8:58AM By HENRI VOGEL MD ; [facility] Norgestimate-Eth Estradiol 0.25-35 MG-MCG Tablet 03/17/2016 - 04/15/2016 Provider: JASE MAGANA RN ALVA Diagnosis: Excessive and fr equent menstruation with regular cycle One tablet daily Last Documented On 04/15/2016 10:43AM By HENRI VOGEL MD ; [facility] Ortho-Cyclen (28) 0.25-35 MG-MCG Tablet 10/20/2015 - 03/17/2016 Provider: HENRI VOGEL MD Diagnosis: Excessive and fr equent menstruation with regular cycle One tablet daily Last Documented On 6 3:33PM By JASE SMITH- ; [facility] ZyrTEC-D Allergy & Congestio n 5-120 MG Tablet Extended Release 12 Hour 02/24/2015 - 10/20/2015 Provider: Diagnosis: Last Documented On 6 9:53AM By MELANIE JOSEPH LPN ; [facility] Nexium 24HR 20 MG Capsule Delayed Release 02/24/2015 - 03/17/2016 Provider: Diagnosis: Last Documented On 03/17/2016 3:21PM By VINNIE YAP MA ; [facility] Medications Administered Includes: Administered Medications in patient's chart No Administered Medications Recorded Results Includes: Results from 08/26/2023 through 08/26/2024 No Results Recorded For Specified Dates History of Present Illness History of Present Illness not supported for this document type No History of Present Illness Recorded Social History Description Last Updated Sexually active 03/30/2020 Last Documented On 0 10:47AM ; [facility] Alcohol use: 2 drinks or less per day no ne 03/30/2020 Last Documented On 0 10:47AM ; [facility] Exercising regularly 03/30/2020 Last Documented On 0 10:47AM ; [facility] Not using alcohol 03/30/2020 Last Documented On 0 10:47AM ; [facility] Not using drugs 03/30/2020 Last Documented On 0 10:47AM ; [facility] Personal history 03/30/2020 Last Documented On 0 10:47AM ; [facility] Single 03/30/2020 Last Documented On 0 10:47AM ; [facility] Smoking status : Never smoker 03/30/2020 Last Documented On 0 10:47AM ; [facility] Social history unchanged 03/30/2020 Last Documented On 0 10:47AM ; [facility] Activities 03/26/2019 Last Documented On 9 10:33AM ; [facility] Education history 03/26/2019 Last Documented On 9 10:33AM ; [facility] Procedures and Surgical History Surgical History Last Updated Surgical / procedural history c/s x2 Last Documented On 7 10:50AM ; [facility] Previous colposcopy 04/15/2010 5 Last Documented On 5 10:03AM ; [facility] Surgical history unchanged 02/24/2015 Last Documented On 5 1:38PM ; [facility] History of cholecystectomy 02/24/2015 Last Documented On 5 1:38PM ; [facility] History of tubal ligation 02/24/2015 Last Documented On 5 1:38PM ; [facility] Medical History Includes: Medical History in patient's chart Description Last Updated A mammogram was performed 03/30/2020 Last Documented On 0 10:47AM ; [facility] History of a DXA of the lateral lumbar s pine was performed 03/28/2019 03/30/2020 Last Documented On 0 10:47AM ; [facility] History of Pap smear done 03/26/201903/04 Last Documented On 0 10:47AM ; [facility] History of screening mammogram was perfo rmed 04/06/2019 03/30/2020 Last Documented On 0 10:47AM ; [facility] Not sexually active 1 partner 03/26/2019 Last Documented On 9 10:33AM ; [facility] Last pap smear date 03/22/2018 03/26/2019 Last Documented On 9 10:33AM ; [facility] Contraception: OCP/tubal 03/22/2018 Last Documented On 8 8:35AM ; [facility] Last mammogram date: 04/07/2017 03/22/20 Last Documented On 8 8:35AM ; [facility] LMP: 2017 03/15/2018 Last Documented On 8 9:13AM ; [facility] History of dysfunctional uterine bleedin g 03/20/2017 Last Documented On 7 10:50AM ; [facility] Aborta 1 03/20/2017 Last Documented On 7 10:50AM ; [facility] 3 03/20/2017 Last Documented On 7 10:50AM ; [facility] Para 2 03/20/2017 Last Documented On 7 10:50AM ; [facility] Result: normal 03/20/2017 Last Documented On 7 10:50AM ; [facility] Result: normal 03/20/2017 Last Documented On 7 10:50AM ; [facility] PRIMARY CARE PROVIDER : prakash Buitrago Last Documented On 7 9:00AM ; [facility] section x 2 01/19/2016 Last Documented On 6 3:43PM ; [facility] Status post tubal ligation 01/19/2016 Last Documented On 6 3:43PM ; [facility] ovarian cysts 05/13/2015 Last Documented On 5 2:50PM ; [facility] MULTIPLE SCLEROSIS 02/24/2015 Last Documented On 5 1:38PM ; [facility] History of hypothyroidism 02/24/2015 Last Documented On 5 1:38PM ; [facility] No recent change in medical history 02/01 Last Documented On 5 1:38PM ; [facility] Family History Includes: Family History in patient's chart Description Last Updated Maternal history of hypertension mom Last Documented On 7 10:50AM ; [facility] Maternal history of hypercholesterolemia mom 06/24/2015 Last Documented On 5 10:03AM ; [facility] Paternal history of diabetes mellitus da d 06/24/2015 Last Documented On 5 10:03AM ; [facility] Paternal history of family history of he art disease dad 06/24/2015 Last Documented On 5 10:03AM ; [facility] Family history unchanged 02/24/2015 Last Documented On 5 1:38PM ; [facility] Family history of diabetes mellitus dad 02/24/2015 Last Documented On 5 1:38PM ; [facility] Family history of heart disease dad 02/01 Last Documented On 5 1:38PM ; [facility] Family history of hypercholesterolemia m om 02/24/2015 Last Documented On 5 1:38PM ; [facility] Family history of hypertension mom 02/24 Last Documented On 5 1:38PM ; [facility] Review of Systems Review of Systems not [...] Active Last Documented On 9 9:47AM ; [facility] Insurance Includes: Active Insurance Policies Plan Name Member ID Group # Subscriber Relationship Effect wesly Dates 1 - [facility] [id number] ELVIRA Moy 2 - [facility] [id number] ELVIRA Moy Clinical Notes Includes: Signed Clinical Notes starting from 07/22/2022 No Clinical Notes Recorded
--- OUTSIDE RECORDS SUMMARY | 2024-08-26 23:24 | XMS_ITS | Clinical Summary ---
Author Organization [facility] Address [address] [place] [address] Phone Care Team Providers Care Roustabout Supervisor Name Role Phone KIYA BUITRAGO NP Primary Care Provider [phone] LELA MCCANN, HENRI Jackson Unavailable [phone] Reason for Visit and Chief Complaint gynecologic annual exam - The Chief Complaint is: Annual Exam Problems Includes: Problems addressed during this encounter and other active Problems Current Visit Onset Date Resolved Date Provider Conditio n Status Reported Family History of Heart Disease 02/24/2015 JASE MAGANA RN [facility] Active Last Documented On 02/24/2015 1:16PM ; [facility] Note: Unchanged - dad History of Hypothyroidism 02/24/2015 JASE MAGANA RN [facility] Active Last Documented On 02/24/2015 1:16PM ; [facility] Note: Unchanged History of Tubal Ligation 02/24/2015 JASE MAGANA RN [facility] Active Last Documented On 02/24/2015 1:16PM ; [facility] Note: Unchanged Past Visits Onset Date Resolved Date Provider Condition Status Excessive Bleeding During Period (Menorrhagia) 10/20/2015 03/30/2020 JASE MAGANA RN [facility] Resolved Last Documented On 03/30/2020 10:31AM ; [facility] Note: Unchanged - -- pt [...] Active Last Documented On 5 1:17PM ; [facility] Plan of Treatment - Weight loss diet - Last Documented On 03/30/2020 10:47AM ; [facility] - Clinical summary provided to patient - Last Documented On 03/30/2020 10:47AM ; [facility] PT TO CALL WITH ANY CHANGE IN STATUS ALL QUESTIONS ANSWERED WITH UNDERSTANDING VERBALIZED BY PT. - Last Documented On 03/30/2020 10:47AM ; [facility] PT TO CALL WITH ANY CHANGE IN STATUS ALL QUESTIONS ANSWERED WITH UNDERSTANDING VERBALIZED BY PT. - Last Documented On 03/30/2020 10:47AM ; [facility] Instructions to patient Instructed to call if excess wesly bleeding or abdominal/pelvic pain Last Documented On 0 10:32AM ; [facility] Instructions For Patient: Mo nthly Self Breast Exam Last Documented On 0 10:32AM ; [facility] Recommend diet and exercise at least 30 min three times per week Last Documented On 0 10:32AM ; [facility] Education and Decision Aids were provided during visit for: Patient Education: Daily emily cium and vitamin D Last Documented On 0 10:32AM ; [facility] Assessments Includes: Assessments from this encounter Findings - Routine gynecological exam with abnormal findings - Last Documented On 03/30/2020 10:47AM ; [facility] - Cutaneous candidiasis - Last Documented On 03/30/2020 10:47AM ; [facility] - Screen malignant neoplasm cervix - Last Documented On 03/30/2020 10:47AM ; [facility] Instructions Includes: Instructions from this encounter Instructions to patient Instructed to call if excess wesly bleeding or abdominal/pelvic pain Last Documented On 0 10:32AM ; [facility] Instructions For Patient: Mo nthly Self Breast Exam Last Documented On 0 10:32AM ; [facility] Recommend diet and exercise at least 30 min three times per week Last Documented On 0 10:32AM ; [facility] Education and Decision Aids were provided during visit for: Patient Education: Daily emily cium and vitamin D Last Documented On 0 10:32AM ; [facility] Medical Equipment - Implanted Devices Includes: Current Devices No Medical Equipment Recorded Medications Includes: Medications discussed during this encounter and other current Medications New / Renewed during this visit JASE MAGANA RN [facility] on 03/30/2020 Nystatin [id number] UNIT/GM External Cream Provider: JASE MAGANA RN [place] P 7 day supply: 30 gram, 2 refills Diagnosis: Candidiasis of skin and nail as directed THREE TIMES A DA Y TO AFFECTED AREAS Pharmacy: [address], [phone] - Last Documented On 0 10:49AM By JASE SMITH- ; [facility] Current Medications (continue as prescribed) Augmentin 875-125MG Oral Tablet 03/20/2017 Provider: Diagnosis: for 10 days for sinus infection Last Documented On 7 10:12AM By ABHINAV CHERY ; [facility] SM Echinacea 125MG Oral Tablet 03/20/2017 Provider: Diagnosis: Last Documented On 7 10:12AM By ABHINAV CHERY ; [facility] Turmeric 500MG Oral Capsule, conventional 03/20/2017 Provider: Diagnosis: Last Documented On 7 10:13AM By ABHINAV CHERY ; [facility] Jessie Allergy 180MG Oral Tablet 03/20/2017 Provide r: Diagnosis: Last Documented On 7 10:13AM By ABHINAV CHERY ; [facility] Buffered Vitamin C 1000MG Oral Capsule, conventional 0 03/20/2017 Provider: Diagnosis: Last Documented On 7 10:11AM By ABHINAV CHERY ; [facility] Digestive Probiotic Oral Capsule, conventional Provider: Diagnosis: Last Documented On 7 10:11AM By ABHINAV CHERY ; [facility] B Complex-B12 Tablet 03/17/2016 Provider: Diagnosis: Last Documented On 03/17/2016 3:22PM By VINNIE YAP MA ; [facility] Vitamin D3 1000 UNIT Tablet 03/17/2016 Provider: Diagnosis: Last Documented On 03/17/2016 3:22PM By VINNIE YAP MA ; [facility] Daily Value Multivitamin Tablet 03/17/2016 Provider: Diagnosis: Last Documented On 03/17/2016 3:22PM By VINNIE YAP MA ; [facility] Singulair 4 MG Tablet, chewable 03/17/2016 Provider: Diagnosis: Last Documented On 03/17/2016 3:21PM By VINNIE YAP MA ; [facility] Flonase 50 MCG/ACT Suspension 02/24/2015 Provider: Diagnosis: Last Documented On 5 1:10PM By MAX CHERY ; [facility] Levothyroxine Sodium 100 MCG Tablet 02/24/2015 Provi danny: Diagnosis: Last Documented On 5 12:58PM By MAX CHERY ; [facility] Past Medications on file Ibuprofen 800MG Oral Tablet 03/22/2018 - 04/05/2018 Provider: JASE SMITH BC Diagnosis: Insect bite (nonvenomous) of breast, left breast, init One tablet three times a day TAKE DIRECTED W/FOOD Last Documented On 8 8:38AM By JASE BEATTY ; [facility] Sulfamethoxazole-Trimethopri m 800-160MG Oral Tablet 03/22/2018 - 03/29/2018 Provider: JASE SMITH BC Diagnosis: Insect bite (nonvenomous) of breast, left breast, init One tablet twice a day ONE TAB 2 TIMES A DAY WIT H FOOD Last Documented On 8 8:38AM By JASE JACOBS ; [facility] Sprintec 28 0.25-35MG-MCG Oral Tablet 03/22/2018 - 03/17/2019 Provider: JASE SMITH BC Diagnosis: Other specified abnormal uterine and vaginal bleeding One tablet daily Last Documented On 8 8:38AM By JASE JACOBS ; [facility] Naproxen 500MG Oral Tablet 03/15/2018 - 03/22/2018 Provider: JASE SMITH BC Diagnosis: Insect bite (nonvenomous) of breast, left breast, init One tablet twice a day ONE T AB TWICE A DAY WITH FOOD DON'T EXCEED 2 TABS IN 24 HOURS Last Documented On 8 9:11AM By JASE JACOBS ; [facility] Fluconazole 150MG Oral Tablet 03/15/2018 - 03/22/2018 Provider: JASE SMITH BC Diagnosis: Insect bite (nonvenomous) of breast, left breast, init as directed take one tablet day 4 and one tablet day 7 of antibiotics Last Documented On 8 9:11AM By JASE JACOBS ; [facility] Amoxicillin-Pot Clavulanate 875-125MG Oral Tablet 03/15/2018 - 03/22/2018 Provider: JASE SMITH BC Diagnosis: Insect bite (nonvenomous) of breast, left breast, init One tablet twice a day Last Documented On 8 9:11AM By JSAE JACOBS ; [facility] Lo Loestrin Fe 1 MG-10 MCG /10 MCG Oral Tablet 03/20/2017 - 05/15/2017 Provider: JASE SMITH BC Diagnosis: Excessive and fr equent menstruation with regular cycle One tablet daily USE DIRECTED Last Documented On 7 10:42AM By JASE JACOBS ; [facility] Medications Administered Includes: Administered Medications from this encounter No Administered Medications Recorded Vital Signs Includes: Vital Signs from this encounter Vital Name 03/30/2020 10:24A Blood Pressure Sitting (mmHg) 120/60 Temp-Oral (F) 97.2 Height (in) 59 Weight (lb) 177 Body Mass Index (kg/m2) 35.7 Body Surface Area (m2) 1.8 Last Documented: On 03/30/2020 10:28A M ; [facility] Results Includes: Results discussed during this encounter No Results Recorded For Specified Dates History of Present Illness Includes: History of Present Illness from this encounter No History of Present Illness Recorded Social History Description Last Updated Sexually active 03/30/2020 Last Documented On 0 10:47AM ; [facility] Alcohol use: 2 drinks or less per day no ne 03/30/2020 Last Documented On 0 10:47AM ; [facility] Exercising regularly 03/30/2020 Last Documented On 0 10:47AM ; [facility] Not using alcohol 03/30/2020 Last Documented On 0 10:47AM ; [facility] Not using drugs 03/30/2020 Last Documented On 0 10:47AM ; [facility] Personal history 03/30/2020 Last Documented On 0 10:47AM ; [facility] Single 03/30/2020 Last Documented On 0 10:47AM ; [facility] Smoking status : Never smoker 03/30/2020 Last Documented On 0 10:47AM ; [facility] Social history unchanged 03/30/2020 Last Documented On 0 10:47AM ; [facility] Procedures and Surgical History Includes: Procedures from this encounter Procedures Code Diagnosis Performing Provider Service L ocation Service Date education and instructions Last Documented On 0 10:32AM ; [facility] explanation of plan Last Documented On 0 10:32AM ; [facility] medical regimen review Last Documented On 0 10:32AM ; [facility] Urged Exercise and Diet , exercise at le ast 30 min three times per week Last Documented On 0 10:32AM ; [facility] cervical Pap smear [id number] Last Documented On 0 10:32AM ; [facility] FIT Test-Fecal Occult negative [id number] Last Documented On 0 10:32AM ; [facility] Surgical History Last Updated Surgical / procedural history c/s x2 Last Documented On 0 10:24AM ; [facility] Previous colposcopy 04/15/2010 5 Last Documented On 0 10:24AM ; [facility] Surgical history unchanged 02/24/2015 Last Documented On 0 10:24AM ; [facility] History of cholecystectomy 02/24/2015 Last Documented On 0 10:24AM ; [facility] History of tubal ligation 02/24/2015 Last Documented On 0 10:24AM ; [facility] Medical History Includes: Medical History addressed during this encounter Description Last Updated A mammogram was performed 03/30/2020 Last Documented On 0 10:47AM ; [facility] History of a DXA of the lateral lumbar s pine was performed 03/28/2019 03/30/2020 Last Documented On 0 10:47AM ; [facility] History of Pap smear done 03/26/201903/04 Last Documented On 0 10:47AM ; [facility] History of screening mammogram was perfo rmed 04/06/2019 03/30/2020 Last Documented On 0 10:47AM ; [facility] Not sexually active 1 partner 03/26/2019 Last Documented On 0 10:24AM ; [facility] LMP: 2017 03/15/2018 Last Documented On 0 10:24AM ; [facility] History of dysfunctional uterine bleedin g 03/20/2017 Last Documented On 0 10:24AM ; [facility] Aborta 1 03/20/2017 Last Documented On 0 10:24AM ; [facility] 3 03/20/2017 Last Documented On 0 10:24AM ; [facility] Para 2 03/20/2017 Last Documented On 0 10:24AM ; [facility] Result: normal 03/20/2017 Last Documented On 0 10:24AM ; [facility] PRIMARY CARE PROVIDER : prakash Buitrago Last Documented On 0 10:24AM ; [facility] section x 2 01/19/2016 Last Documented On 0 10:24AM ; [facility] Status post tubal ligation 01/19/2016 Last Documented On 0 10:24AM ; [facility] ovarian cysts 05/13/2015 Last Documented On 0 10:24AM ; [facility] MULTIPLE SCLEROSIS 02/24/2015 Last Documented On 0 10:24AM ; [facility] History of hypothyroidism 02/24/2015 Last Documented On 0 10:24AM ; [facility] No recent change in medical history 02/01 Last Documented On 0 10:24AM ; [facility] Family History Includes: Family History addressed during this encounter Description Last Updated Maternal history of hypertension mom Last Documented On 0 10:24AM ; [facility] Maternal history of hypercholesterolemia mom 06/24/2015 Last Documented On 0 10:24AM ; [facility] Paternal history of diabetes mellitus da d 06/24/2015 Last Documented On 0 10:24AM ; [facility] Paternal history of family history of he art disease dad 06/24/2015 Last Documented On 0 10:24AM ; [facility] Family history unchanged 02/24/2015 Last Documented On 0 10:24AM ; [facility] Family history of diabetes mellitus dad 02/24/2015 Last Documented On 0 10:24AM ; [facility] Family history of heart disease dad 02/01 Last Documented On 0 10:24AM ; [facility] Family history of hypercholesterolemia m om 02/24/2015 Last Documented On 0 10:24AM ; [facility] Family history of hypertension mom 02/24 Last Documented On 0 10:24AM ; [facility] Review of Systems Includes: Review [...] Active Last Documented On 9 9:47AM ; [facility] Encounters Encounter Provider Location Date Check-In Time Check-Out Time Diagnosis WELL WOMAN EXAM JASE MAGANA RN [facility] 03/30/20 20 10:30AM 10:48AM Screen Malignant Neoplasm Cervix,Routine Gynecological Exam with Abnormal Findings,Candidi asis of the Skin Insurance Includes: Active Insurance Policies Plan Name Member ID Group # Subscriber Relationship Effect wesly Dates 1 - [facility] [id number] ELVIRA Moy 2 - [facility] [id number] ELVIRA Moy Clinical Notes Includes: Clinical Notes from this encounter No Clinical Notes Recorded
--- OUTSIDE RECORDS SUMMARY | 2024-08-26 23:25 | XMS_ITS | Clinical Summary ---
Author Organization [facility] Address [address] [place] [address] Phone Care Team Providers Care Remittance Clerk Name Role Phone KIYA BUITRAGO NP Primary Care Provider [phone] LELA MCCANN, HENRI Jackson Unavailable [phone] Reason for Referral Date Encounter Description Provider Reason for Referral 03/26/19 WELL WOMAN EXAM JASE MAGANA RN [facility] Request Consultation By Specialist Reason for Visit [...] Active Last Documented On 02/24/2015 1:16PM ; [facility] Note: Unchanged - dad History of Hypothyroidism 02/24/2015 JASE MAGANA RN [facility] Active Last Documented On 02/24/2015 1:16PM ; [facility] Note: Unchanged History of Tubal Ligation 02/24/2015 JASE MAGANA RN [facility] Active Last Documented On 02/24/2015 1:16PM ; [facility] Note: Unchanged Multiple Sclerosis 02/24/2015 JASE DUPONT RN [facility] Active Last Documented On 5 1:17PM ; [facility] Plan of Treatment - Weight loss diet - Last Documented On 03/26/2019 10:33AM ; [facility] - Clinical summary provided to patient - Last Documented On 03/26/2019 10:33AM ; [facility] - Transition in care, clinical summary provided - Last Documented On 03/26/2019 10:33AM ; [facility] - Request consultation by specialist - Last Documented On 03/26/2019 10:33AM ; [facility] PT TO CALL WITH ANY CHANGE IN STATUS ALL QUESTIONS ANSWERED WITH UNDERSTANDING VERBALIZED BY PT. - Last Documented On 03/26/2019 10:33AM ; [facility] Pending Tests Order Diagnosis Results Due Ordering P rovider Radiology @ other - *MAMMOGRAPHY SCREENING MAMMOGRAM Encntr screen mammogram for malignant neoplasm of breast 04/09/19 JASE MAGANA RN [facility] Last Documented On 0 1:49PM ; [facility] Referrals To Diagnosis [place]rologist [place] [address] - Multiple sclerosis Last Documented On 0 10:43AM ; [facility] Instructions to patient Lose weight Last Documented On 9 10:09AM ; [facility] Instructed to call if excess wesly bleeding or abdominal/pelvic pain Last Documented On 9 10:09AM ; [facility] Instructions For Patient: Mo nthly Self Breast Exam Last Documented On 9 10:09AM ; [facility] Recommend diet and exercise at least 30 min three times per week Last Documented On 9 10:09AM ; [facility] Education and Decision Aids were provided during visit for: Patient Education: Daily emily cium and vitamin D Last Documented On 9 10:09AM ; [facility] Assessments Includes: Assessments from this encounter Findings - NORMAL FEMALE EXAM - Last Documented On 03/26/2019 10:33AM ; [facility] - Multiple sclerosis - Last Documented On 03/26/2019 10:33AM ; [facility] - Screen malignant neoplasm cervix - Last Documented On 03/26/2019 10:33AM ; [facility] Instructions Includes: Instructions from this encounter Instructions to patient Lose weight Last Documented On 9 10:09AM ; [facility] Instructed to call if excess wesly bleeding or abdominal/pelvic pain Last Documented On 9 10:09AM ; [facility] Instructions For Patient: Mo nthly Self Breast Exam Last Documented On 9 10:09AM ; [facility] Recommend diet and exercise at least 30 min three times per week Last Documented On 9 10:09AM ; [facility] Education and Decision Aids were provided during visit for: Patient Education: Daily emily cium and vitamin D Last Documented On 9 10:09AM ; [facility] Medical Equipment - Implanted Devices Includes: Current Devices No Medical Equipment Recorded Medications Includes: Medications discussed during this encounter and other current Medications Current Medications (continue as prescribed) Augmentin 875-125MG Oral Tablet 03/20/2017 Provider: Diagnosis: for 10 days for sinus infection Last Documented On 7 10:12AM By ABHINAV CHERY ; [facility] SM Echinacea 125MG Oral Tablet 03/20/2017 Provider: Diagnosis: Last Documented On 7 10:12AM By ABHINAV CHERY ; [facility] Turmeric 500MG Oral Capsule, conventional 03/20/2017 Provider: Diagnosis: Last Documented On 7 10:13AM By ABHINAV CHERY ; [facility] Jessie Allergy 180MG Oral Tablet 03/20/2017 Provide r: Diagnosis: Last Documented On 7 10:13AM By ABHINAV CHERY ; [facility] Buffered Vitamin C 1000MG Oral Capsule, conventional 0 03/20/2017 Provider: Diagnosis: Last Documented On 7 10:11AM By ABHINAV CHERY ; [facility] CVS Digestive Probiotic Oral Capsule, conventional Provider: Diagnosis: Last Documented On 7 10:11AM By ABHINAV CHERY ; [facility] B Complex-B12 Tablet 03/17/2016 Provider: Diagnosis: Last Documented On 03/17/2016 3:22PM By VINNIE YAP MA ; [facility] Vitamin D3 1000 UNIT Tablet 03/17/2016 Provider: Diagnosis: Last Documented On 03/17/2016 3:22PM By VINNIE YAP MA ; [facility] Daily Value Multivitamin Tablet 03/17/2016 Provider: Diagnosis: Last Documented On 03/17/2016 3:22PM By VINNIE YAP MA ; [facility] Singulair 4 MG Tablet, chewable 03/17/2016 Provider: Diagnosis: Last Documented On 03/17/2016 3:21PM By VINNIE YAP MA ; [facility] Flonase 50 MCG/ACT Suspension 02/24/2015 Provider: Diagnosis: Last Documented On 5 1:10PM By MAX CHERY ; [facility] Levothyroxine Sodium 100 MCG Tablet 02/24/2015 Provi danny: Diagnosis: Last Documented On 5 12:58PM By MAX CHERY ; [facility] Past Medications on file Nystatin 217281 UNIT/GM External Cream 03/30/2020 - 04/20/2020 Provider: JASE SMITH BC Diagnosis: Candidiasis of s kin and nail as directed THREE TIMES A DA Y TO AFFECTED AREAS Last Documented On 0 10:49AM By JASE JACOBS ; [facility] Ibuprofen 800MG Oral Tablet 03/22/2018 - 04/05/2018 Provider: JASE SMITH BC Diagnosis: Insect bite (nonvenomous) of breast, left breast, init One tablet three times a day TAKE DIRECTED W/FOOD Last Documented On 8 8:38AM By JASE JACOBS ; [facility] Sulfamethoxazole-Trimethopri m 800-160MG Oral Tablet 03/22/2018 - 03/29/2018 Provider: JASE SMITH BC Diagnosis: Insect bite (nonvenomous) of breast, left breast, init One tablet twice a day ONE TAB 2 TIMES A DAY WIT H FOOD Last Documented On 8 8:38AM By JASE JACOBS ; [facility] Sprintec 28 0.25-35MG-MCG Oral Tablet 03/22/2018 - 03/17/2019 Provider: JASE SMITH BC Diagnosis: Other specified abnormal uterine and vaginal bleeding One tablet daily Last Documented On 8 8:38AM By JASE JACOBS ; [facility] Naproxen 500MG Oral Tablet 03/15/2018 - 03/22/2018 Provider: JASE SMITH BC Diagnosis: Insect bite (nonvenomous) of breast, left breast, init One tablet twice a day ONE T AB TWICE A DAY WITH FOOD DON'T EXCEED 2 TABS IN 24 HOURS Last Documented On 8 9:11AM By JASE JACOBS ; [facility] Fluconazole 150MG Oral Tablet 03/15/2018 - 03/22/2018 Provider: JASE MAGANA RN [facility] Diagnosis: Insect bite (nonvenomous) of breast, left breast, init as directed take one tablet day 4 and one tablet day 7 of antibiotics Last Documented On 8 9:11AM By JASE JACOBS ; [facility] Amoxicillin-Pot Clavulanate 875-125MG Oral Tablet 03/15/2018 - 03/22/2018 Provider: JASE MAGANA RN [facility] Diagnosis: Insect bite (nonvenomous) of breast, left breast, init One tablet twice a day Last Documented On 8 9:11AM By JASE JACOBS ; [facility] Lo Loestrin Fe 1 MG-10 MCG /10 MCG Oral Tablet 03/20/2017 - 05/15/2017 Provider: JASE MAGANA RN [facility] Diagnosis: Excessive and fr equent menstruation with regular cycle One tablet daily USE DIRECTED Last Documented On 7 10:42AM By JASE JCAOBS ; [facility] Medications Administered Includes: Administered Medications from this encounter No Administered Medications Recorded Vital Signs Includes: Vital Signs from this encounter Vital Name 03/26/2019 09:47A Blood Pressure Sitting L 108/82 BP Cuff Size Regular Height (in) 59 Weight (lb) 161 Body Mass Index (kg/m2) 32.5 Body Surface Area (m2) 1.7 Last Documented: On 03/26/2019 9:51AM ; [facility] Results Includes: Results discussed during this encounter [...] 03/26/2019 Last Documented On 9 10:33AM ; [facility] Alcohol use: 2 drinks or less per day no ne 03/26/2019 Last Documented On 9 10:33AM ; [facility] Education history 03/26/2019 Last Documented On 9 10:33AM ; [facility] Exercising regularly 03/26/2019 Last Documented On 9 10:33AM ; [facility] Non-smoker 03/26/2019 Last Documented On 9 10:33AM ; [facility] Not a smoker 03/26/2019 Last Documented On 9 10:33AM ; [facility] Not using alcohol 03/26/2019 Last Documented On 9 10:33AM ; [facility] Not using drugs 03/26/2019 Last Documented On 9 10:33AM ; [facility] Personal history 03/26/2019 Last Documented On 9 10:33AM ; [facility] Sexually active 03/26/2019 Last Documented On 9 10:33AM ; [facility] Single 03/26/2019 Last Documented On 9 10:33AM ; [facility] Smoking status : Never smoker 03/26/2019 Last Documented On 9 10:33AM ; [facility] Social history unchanged 03/26/2019 Last Documented On 9 10:33AM ; [facility] Procedures and Surgical History Includes: Procedures from this encounter Procedures Code Diagnosis Performing Provider Service L ocation Service Date education and instructions Last Documented On 9 10:09AM ; [facility] explanation of plan Last Documented On 9 10:09AM ; [facility] junk-free diet including sodas Last Documented On 9 10:09AM ; [facility] medical regimen review Last Documented On 9 10:09AM ; [facility] Urged Exercise and Diet , exercise at le ast 30 min three times per week Last Documented On 9 10:09AM ; [facility] Clinical summary provided to patient Last Documented On 9 10:09AM ; [facility] Clinical summary transmitted to referring provider electronically with reasonable certainty of receipt Last Documented On 9 10:32AM ; [facility] cervical Pap smear [id number] Last Documented On 9 10:09AM ; [facility] FIT Test-Fecal Occult negative [id number] Last Documented On 9 10:09AM ; [facility] Surgical History Last Updated Surgical / procedural history c/s x2 Last Documented On 9 9:46AM ; [facility] Previous colposcopy 04/15/2010 5 Last Documented On 9 9:46AM ; [facility] Surgical history unchanged 02/24/2015 Last Documented On 9 9:46AM ; [facility] History of cholecystectomy 02/24/2015 Last Documented On 9 9:46AM ; [facility] History of tubal ligation 02/24/2015 Last Documented On 9 9:46AM ; [facility] Medical History Includes: Medical History addressed during this encounter Description Last Updated Not sexually active 1 partner 03/26/2019 Last Documented On 9 10:33AM ; [facility] Last pap smear date 03/22/2018 03/26/2019 Last Documented On 9 10:33AM ; [facility] Contraception: OCP/tubal 03/22/2018 Last Documented On 9 9:46AM ; [facility] Last mammogram date: 04/07/2017 03/22/20 18 Last Documented On 9 9:46AM ; [facility] LMP: 2017 03/15/2018 Last Documented On 9 9:46AM ; [facility] History of dysfunctional uterine bleedin g 03/20/2017 Last Documented On 9 9:46AM ; [facility] Aborta 1 03/20/2017 Last Documented On 9 9:46AM ; [facility] 3 03/20/2017 Last Documented On 9 9:46AM ; [facility] Para 2 03/20/2017 Last Documented On 9 9:46AM ; [facility] Result: normal 03/20/2017 Last Documented On 9 9:46AM ; [facility] Result: normal 03/20/2017 Last Documented On 9 9:46AM ; [facility] PRIMARY CARE PROVIDER : prakash Buitrago Last Documented On 9 9:46AM ; [facility] section x 2 01/19/2016 Last Documented On 9 9:46AM ; [facility] Status post tubal ligation 01/19/2016 Last Documented On 9 9:46AM ; [facility] ovarian cysts 05/13/2015 Last Documented On 9 9:46AM ; [facility] MULTIPLE SCLEROSIS 02/24/2015 Last Documented On 9 9:46AM ; [facility] History of hypothyroidism 02/24/2015 Last Documented On 9 9:46AM ; [facility] No recent change in medical history 02/01 Last Documented On 9 9:46AM ; [facility] Family History Includes: Family History addressed during this encounter Description Last Updated Maternal history of hypertension mom Last Documented On 9 9:46AM ; [facility] Maternal history of hypercholesterolemia mom 06/24/2015 Last Documented On 9 9:46AM ; [facility] Paternal history of diabetes mellitus da d 06/24/2015 Last Documented On 9 9:46AM ; [facility] Paternal history of family history of he art disease dad 06/24/2015 Last Documented On 9 9:46AM ; [facility] Family history unchanged 02/24/2015 Last Documented On 9 9:46AM ; [facility] Family history of diabetes mellitus dad 02/24/2015 Last Documented On 9 9:46AM ; [facility] Family history of heart disease dad 02/01 Last Documented On 9 9:46AM ; [facility] Family history of hypercholesterolemia m om 02/24/2015 Last Documented On 9 9:46AM ; [facility] Family history of hypertension mom 02/24 Last Documented On 9 9:46AM ; [facility] Review of Systems Includes: Review [...] 9:47AM ; [facility] Encounters Encounter Provider Location Date Check-In Time Check-Out Time Diagnosis WELL WOMAN EXAM JASE MAGANA RN [facility] 03/26/20 19 9:36AM 10:28AM Screen Malignant Neoplasm Cervix,Normal Female Exam,Multiple Sclerosis Insurance Includes: Active Insurance Policies Plan Name Member ID Group # Subscriber Relationship Effect wesly Dates 1 - [facility] [id number] ELVIRA WORTHINGTON Self 2 - [facility] [id number] ELVIRA WORTHINGTON Self Clinical Notes Includes: Clinical Notes from this encounter No Clinical Notes Recorded
--- OUTSIDE RECORDS SUMMARY | 2024-08-26 23:25 | XMS_ITS | Clinical Summary ---
Author Organization [facility] Address [address] [place] [address] Phone Care Team Providers Care Cab Worker Name Role Phone KIYA BUITRAGO NP Primary Care Provider [phone] LELA MCCANN, HENRI Jackson Unavailable [phone] Reason for Referral Date Encounter [...] Last Documented On 02/24/2015 1:16PM ; [facility] Note: Unchanged - dad History of Hypothyroidism 02/24/2015 JASE MAGANA RN [facility] Active Last Documented On 02/24/2015 1:16PM ; [facility] Note: Unchanged History of Tubal Ligation 02/24/2015 JASE YARBROUGH Active Last Documented On 02/24/2015 1:16PM ; [facility] Note: Unchanged Past Visits Onset Date Resolved Date Provider Condition Status Multiple Sclerosis 02/24/2015 JASE YARBROUGH Active Last Documented On 5 1:17PM ; [facility] Plan of Treatment - Transition in care, clinical summary provided - Last Documented On 03/29/2018 9:54AM ; [facility] - Request consultation by specialist - Last Documented On 03/29/2018 9:54AM ; [facility] Pending Tests Order Diagnosis Results Due Ordering Provider Radiology @ other - Ultrasound Breast Ultrasound Unspecified lump in the left breast, unspecified quadrant 04/12/18 JASE MAGANA RN [facility] Last Documented On 9 10:28AM ; [facility] Radiology @ other - *MAMMOGRAPHY Diagnostic Mammography Unspecified lump in the left breast, unspecified quadrant 04/12/18 JASE MAGANA RN [facility] Last Documented On 9 10:28AM ; [facility] Referrals To Diagnosis General Surgery [place] [address] - Unspecified lump in the left breast, unspecified quadrant Note: L breast mass x 3 week s below areola, some reduction in size w/antibiotic course. L breast diagnostic mammogram and U/S ordered Last Documented On 9 10:29AM ; [facility] Assessments Includes: Assessments from this encounter Findings - Lump or mass in breast r/o abcess s/p insect bite - Last Documented On 03/29/2018 9:54AM ; [facility] Medical Equipment - Implanted Devices Includes: Current Devices No Medical Equipment Recorded Medications Includes: Medications discussed during this encounter and other current Medications Current Medications (continue as prescribed) Augmentin 875-125MG Oral Tablet 03/20/2017 Provider: Diagnosis: for 10 days for sinus infection Last Documented On 7 10:12AM By ABHINAV CHERY ; [facility] SM Echinacea 125MG Oral Tablet 03/20/2017 Provider: Diagnosis: Last Documented On 7 10:12AM By ABHINAV CHERY ; [facility] Turmeric 500MG Oral Capsule, conventional 03/20/2017 Provider: Diagnosis: Last Documented On 7 10:13AM By ABHINAV CHERY ; [facility] Jessie Allergy 180MG Oral Tablet 03/20/2017 Provide r: Diagnosis: Last Documented On 7 10:13AM By ABHINAV CHERY ; [facility] Buffered Vitamin C 1000MG Oral Capsule, conventional 0 03/20/2017 Provider: Diagnosis: Last Documented On 7 10:11AM By ABHINAV CHERY ; [facility]S Digestive Probiotic Oral Capsule, conventional Provider: Diagnosis: Last Documented On 7 10:11AM By ABHINAV CHERY ; [facility] B Complex-B12 Tablet 03/17/2016 Provider: Diagnosis: Last Documented On 03/17/2016 3:22PM By VINNIE YAP MA ; [facility] SM Vitamin D3 1000 UNIT Tablet 03/17/2016 Provider: Diagnosis: Last Documented On 03/17/2016 3:22PM By VINNIE YAP MA ; [facility] Daily Value Multivitamin Tablet 03/17/2016 Provider: Diagnosis: Last Documented On 03/17/2016 3:22PM By VINNIE YAP MA ; [facility] Singulair 4 MG Tablet, chewable 03/17/2016 Provider: Diagnosis: Last Documented On 03/17/2016 3:21PM By VINNIE YAP MA ; [facility] Flonase 50 MCG/ACT Suspension 02/24/2015 Provider: Diagnosis: Last Documented On 5 1:10PM By MAX CHERY ; [facility] Levothyroxine Sodium 100 MCG Tablet 02/24/2015 Provi danny: Diagnosis: Last Documented On 5 12:58PM By MAX CHERY ; [facility] Past Medications on file Nystatin 191051 UNIT/GM External Cream 03/30/2020 - 04/20/2020 Provider: JASE SMITH Diagnosis: Candidiasis of s kin and nail as directed THREE TIMES A DA Y TO AFFECTED AREAS Last Documented On 0 10:49AM By JASE SMITH-LINNEA ; [facility] Ibuprofen 800MG Oral Tablet 03/22/2018 - 04/05/2018 Provider: JASE YARBROUGH Diagnosis: Insect bite (nonvenomous) of breast, left breast, init One tablet three times a day TAKE DIRECTED W/FOOD Last Documented On 8 8:38AM By JASE JACOBS ; [facility] Sulfamethoxazole-Trimethopri m 800-160MG Oral Tablet 03/22/2018 - 03/29/2018 Provider: JASE SMITH BC Diagnosis: Insect bite (nonvenomous) of breast, left breast, init One tablet twice a day ONE TAB 2 TIMES A DAY WIT H FOOD Last Documented On 8 8:38AM By JASE JACOBS ; [facility] Sprintec 28 0.25-35MG-MCG Oral Tablet 03/22/2018 - 03/17/2019 Provider: JASE SMITH BC Diagnosis: Other specified abnormal uterine and vaginal bleeding One tablet daily Last Documented On 8 8:38AM By JASE JACOBS ; [facility] Naproxen 500MG Oral Tablet 03/15/2018 - 03/22/2018 Provider: JASE SMITH BC Diagnosis: Insect bite (nonvenomous) of breast, left breast, init One tablet twice a day ONE T AB TWICE A DAY WITH FOOD DON'T EXCEED 2 TABS IN 24 HOURS Last Documented On 8 9:11AM By JASE JACOBS ; [facility] Fluconazole 150MG Oral Tablet 03/15/2018 - 03/22/2018 Provider: JASE SMITH BC Diagnosis: Insect bite (nonvenomous) of breast, left breast, init as directed take one tablet day 4 and one tablet day 7 of antibiotics Last Documented On 8 9:11AM By JASE JACOBS ; [facility] Amoxicillin-Pot Clavulanate 875-125MG Oral Tablet 03/15/2018 - 03/22/2018 Provider: JASE SMITH BC Diagnosis: Insect bite (nonvenomous) of breast, left breast, init One tablet twice a day Last Documented On 8 9:11AM By JASE JACOBS ; [facility] Lo Loestrin Fe 1 MG-10 MCG /10 MCG Oral Tablet 03/20/2017 - 05/15/2017 Provider: JASE SMITH BC Diagnosis: Excessive and fr equent menstruation with regular cycle One tablet daily USE DIRECTED Last Documented On 7 10:42AM By JASE JACOBS ; [facility] Medications Administered Includes: Administered Medications from this encounter No Administered Medications Recorded Vital Signs Includes: Vital Signs from this encounter Vital Name 03/29/2018 08:34A 03/29/2018 08: 33A Blood Pressure Sitting L 110/70 BP Cuff Size Large Height (in) 59 59 Weight (lb) 180.8 Body Mass Index (kg/m2) 36.5 Body Surface Area (m2) 1.8 Last Documented: On 03/29/2018 8:38AM ; [facility] On 03/29/2018 8:33AM ; [facility] Results Includes: Results discussed during [...] 03/29/2018 Last Documented On 8 9:54AM ; [facility] Non-smoker 03/29/2018 Last Documented On 8 9:54AM ; [facility] Smoking status : Never smoker 03/29/2018 Last Documented On 8 9:54AM ; [facility] Procedures and Surgical History Includes: Procedures from this encounter Procedures Code Diagnosis Performing Provider Service L ocation Service Date education and instructions Last Documented On 8 8:58AM ; [facility] Clinical summary provided to patient Last Documented On 8 8:58AM ; [facility] Clinical summary transmitted to [facility] provider electronically Last Documented On 8 8:58AM ; [facility] Surgical History Last Updated Surgical / procedural history c/s x2 Last Documented On 8 8:33AM ; [facility] Previous colposcopy 04/15/2010 5 Last Documented On 8 8:33AM ; [facility] Surgical history unchanged 02/24/2015 Last Documented On 8 8:33AM ; [facility] History of cholecystectomy 02/24/2015 Last Documented On 8 8:33AM ; [facility] History of tubal ligation 02/24/2015 Last Documented On 8 8:33AM ; [facility] Medical History Includes: Medical History addressed during this encounter Description Last Updated History of Pap smear done 03/20/201703/04 Last Documented On 8 8:33AM ; [facility] History of screening mammogram was perfo rmed 04/07/2017 03/30/2020 Last Documented On 8 8:33AM ; [facility] Not sexually active 03/26/2019 Last Documented On 8 8:33AM ; [facility] Last pap smear date 03/20/2017 03/26/2019 Last Documented On 8 8:33AM ; [facility] Contraception: OCP/tubal 03/22/2018 Last Documented On 8 8:33AM ; [facility] Last mammogram date: 04/07/2017 03/22/20 Last Documented On 8 8:33AM ; [facility] LMP: 2017 03/15/2018 Last Documented On 8 8:33AM ; [facility] History of dysfunctional uterine bleedin g 03/20/2017 Last Documented On 8 8:33AM ; [facility] Aborta 1 03/20/2017 Last Documented On 8 8:33AM ; [facility] 3 03/20/2017 Last Documented On 8 8:33AM ; [facility] Para 2 03/20/2017 Last Documented On 8 8:33AM ; [facility] Result: normal 03/20/2017 Last Documented On 8 8:33AM ; [facility] Result: normal 03/20/2017 Last Documented On 8 8:33AM ; [facility] PRIMARY CARE PROVIDER : prakash Buitrago Last Documented On 8 8:33AM ; [facility] section x 2 01/19/2016 Last Documented On 8 8:33AM ; [facility] Status post tubal ligation 01/19/2016 Last Documented On 8 8:33AM ; [facility] ovarian cysts 05/13/2015 Last Documented On 8 8:33AM ; [facility] MULTIPLE SCLEROSIS 02/24/2015 Last Documented On 8 8:33AM ; [facility] History of hypothyroidism 02/24/2015 Last Documented On 8 8:33AM ; [facility] No recent change in medical history 02/01 Last Documented On 8 8:33AM ; [facility] Family History Includes: Family History addressed during this encounter Description Last Updated Maternal history of hypertension mom Last Documented On 8 8:33AM ; [facility] Maternal history of hypercholesterolemia mom 06/24/2015 Last Documented On 8 8:33AM ; [facility] Paternal history of diabetes mellitus da d 06/24/2015 Last Documented On 8 8:33AM ; [facility] Paternal history of family history of he art disease dad 06/24/2015 Last Documented On 8 8:33AM ; [facility] Family history unchanged 02/24/2015 Last Documented On 8 8:33AM ; [facility] Family history of diabetes mellitus dad 02/24/2015 Last Documented On 8 8:33AM ; [facility] Family history of heart disease dad 02/01 Last Documented On 8 8:33AM ; [facility] Family history of hypercholesterolemia m om 02/24/2015 Last Documented On 8 8:33AM ; [facility] Family history of hypertension mom 02/24 Last Documented On 8 8:33AM ; [facility] Review of Systems Includes: Review of Systems [...] Documented On 9 9:47AM ; [facility] Encounters Encounter Provider Location Date Check-In Time Check- Out Time Diagnosis 1 WK CK-UP JASE MAGANA RN [facility] [employer]ER 8 8:33AM 8:50AM Breast Lump Or Mass Insurance Includes: Active Insurance Policies Plan Name Member ID Group # Subscriber Relationship Effect wesly Dates 1 - [facility] [id number] ELVIRA Moy 2 - [facility] [id number] ELVIRA Moy Clinical Notes Includes: Clinical Notes from this encounter No Clinical Notes Recorded
--- OUTSIDE RECORDS SUMMARY | 2024-08-26 23:25 | XMS_ITS | Clinical Summary ---
Author Organization [facility] Address [address] [place] [address] Phone Care Team Providers Care Aerial Tram Operator Name Role Phone KIYA BUITRAGO NP Primary Care Provider [phone] LELA MCCANN, HENRI Jackson Unavailable [phone] Reason for Visit and Chief Complaint RE-PAP Problems Includes: Problems addressed during this encounter and other active Problems All Visits Onset Date Resolved Date Provider Condition Jatinder teresa Reported Family History of Heart Disease 02/24/2015 JASE MAGANA RN [facility] Active Last Documented On 02/24/2015 1:16PM ; [facility] Note: Unchanged - dad History of Hypothyroidism 02/24/2015 JASE MAGANA RN [facility] Active Last Documented On 02/24/2015 1:16PM ; [facility] Note: Unchanged History of Tubal Ligation 02/24/2015 JASE MAGANA RN [facility] Active Last Documented On 02/24/2015 1:16PM ; [facility] Note: Unchanged Multiple Sclerosis 02/24/2015 JASE DUPONT RN [facility] Active Last Documented On 5 1:17PM ; [facility] Plan of Treatment No Plan of [...] On 7 10:12AM By ABHINAV CHERY ; [facility] Echinacea 125MG Oral Tablet 03/20/2017 Provider: Diagnosis: Last Documented On 7 10:12AM By ABHINAV CHERY ; [facility] Turmeric 500MG Oral Capsule, conventional 03/20/2017 Provider: Diagnosis: Last Documented On 7 10:13AM By ABHINAV CHERY ; [facility] Jessie Allergy 180MG Oral Tablet 03/20/2017 Provide r: Diagnosis: Last Documented On 7 10:13AM By ABHINAV CHERY ; [facility] Buffered Vitamin C 1000MG Oral Capsule, conventional 0 03/20/2017 Provider: Diagnosis: Last Documented On 7 10:11AM By ABHINAV CHERY ; [facility]S Digestive Probiotic Oral Capsule, conventional Provider: Diagnosis: Last Documented On 7 10:11AM By ABHINAV CHERY ; [facility] B Complex-B12 Tablet 03/17/2016 Provider: Diagnosis: Last Documented On 03/17/2016 3:22PM By VINNIE YAP MA ; [facility] SM Vitamin D3 1000 UNIT Tablet 03/17/2016 Provider: Diagnosis: Last Documented On 03/17/2016 3:22PM By VINNIE YAP MA ; [facility] Daily Value Multivitamin Tablet 03/17/2016 Provider: Diagnosis: Last Documented On 03/17/2016 3:22PM By VINNIE YAP MA ; [facility] Singulair 4 MG Tablet, chewable 03/17/2016 Provider: Diagnosis: Last Documented On 03/17/2016 3:21PM By VINNIE YAP MA ; [facility] Flonase 50 MCG/ACT Suspension 02/24/2015 Provider: Diagnosis: Last Documented On 5 1:10PM By MAX CHERY ; [facility] Levothyroxine Sodium 100 MCG Tablet 02/24/2015 Provi danny: Diagnosis: Last Documented On 5 12:58PM By MAX CHERY ; [facility] Medications Administered Includes: Administered Medications from [...] Active Last Documented On 9 9:47AM ; [facility] Insurance Includes: Active Insurance Policies Plan Name Member ID Group # Subscriber Relationship Effect wesly Dates 1 - [id number] ELVIRA Moy 2 - [facility] [id number] ELVIRA Moy Clinical Notes Includes: Clinical Notes from this encounter No Clinical Notes Recorded
--- OUTSIDE RECORDS SUMMARY | 2024-08-26 23:25 | XMS_ITS ---
Care Plan - [facility] Created on: August 26, 2024 ELVIRA WORTHINGTON : 1970 Sex: Female Author Organization [facility] Address [address] [place] [address] Phone Care Team Providers Care Construction Equipment Mechanic Helper Name Role Phone KIYA BUITRAGO NP Primary Care Provider [phone] LELA MCCANN, HENRI Jackson Unavailable [phone]
--- OUTSIDE RECORDS SUMMARY | 2024-08-26 23:25 | XMS_ITS | Clinical Summary ---
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 BREAST TISSUE:There are scattered fibroglandular densities [...] signed by: Israel Dill M.D. /penrad:04/22/2020 15:55:53 Abrasives Sales Representative: Magdalena Painter RT(R)(M), [facility] letter sent: Normal Exam Reading location: [facility] BI-RADS: 2 Benign Procedure Note Israel Dlil MD - 04/22/2020 - INDIRA SCREENING BILATERAL [...] Comparison is made to exams dated: 04/06/2019 [facility], 04/07/2017, and 03/30/2016 [facility]. BREAST TISSUE:There are scattered fibroglandular densities [...] exam. Electronically signed by: Israel horan/penrad:04/22/2020 15:55:53 Abrasives Sales Representative: Magdalena Painter RT(R)(M), [facility] letter sent: Normal Exam Reading location: [facility] BI-RADS: 2 Benign Kristy Davison APRN, [facility] IMG MAMMO ORDERABLES Fi nal Result from Last 3 Months or Most Recently Relevant to Health Maintenance Insurance MED[place]ID [place] MED[place]ID [place] Care Teams Occupational Health Professional Relationship Specialty Start Date End Date Iraida Meraz APRN, [facility] [address] [place] [address] PCP - General Family Medicine 03/23/20 Marciano Hutton MD [address] [place] [address] Family Medicine 02/08/16
--- OUTSIDE RECORDS SUMMARY | 2024-08-26 23:25 | XMS_ITS | Clinical Summary ---
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 on: Apr 07 2017 10:20A Ordering DR: KRISTY NinoALVA) IZZY Attending DR: DR HENRI VOGEL Attending: DR HENRI VOGEL Requesting: KRISTY DAVISON ([facility]) Requesting Attending Attending ID: [id number] Requesting ID: [id number] Report To 1 ID: [id number] Report To 1 Name: KRISTY DAVISON ([facility]) Report To 1 FAX: [phone] NextGen Order #: Procedure Note Miscellaneous, Not In File / Provider, MD Yeni - 04/10/2017 SCREENING MAMM W LARA BI Acc#: [id number] DATE OF EXAM: Apr 07 2017 SCREENING [...] on: Apr 07 2017 10:22A Transcribed by: [facility] On: Apr 07 2017 10:20A Approved Electronically by: SIRISHA MIRZA M.D. on: Apr 07 2017 10:20A Ordering DR: KRISTY KEITH) IZZY Attending DR: DR HENRI VOGEL Attending: DR HENRI VOGEL Requesting: [facility] Requesting Attending Attending ID: [id number] Requesting ID: [id number] Report To 1 ID: [id number] Report To 1 Name: [facility] Report To 1 FAX: [phone] NextGen Order #: Kristy Davison HELICOPTER REPAIRER IMG MAMMO PROCEDURES Edited Re sult - Final from Last 3 Months or Most Recently Relevant to Health Maintenance Insurance [facility] Member Subscriber Plan / Payer ( fective 2017-Present) Name:Ana Sanchez Relation to Subscriber:Self Name:Ana Sanchez Dodie Payer ID:[id number] (NAIC) Group ID:Not on file Type:MEDICAID RISK OTHER Address: [place] [address] [facility] Care Teams Outreach Specialist Relationship Specialty Start Date End Date Iraida Meraz NP [address] [place] [address] PCP - General Nurse Practitioner 03/17/23 Jimmy Barahona, PT Physical Therapist Physical Therapy 02/13/18 Joelle Whittaker ALLERGIST/PEDIATRIC PULMONOLOGIST Physical Therapist Physical Therapy 02/28/18
--- OUTSIDE RECORDS SUMMARY | 2024-08-26 23:25 | XMS_ITS | Clinical Summary ---
Author Organization [facility] Address [address] [place] [address] Phone Care Team Providers Care Senior Net Developer Architect Name Role Phone KIYA BUITRAGO NP Primary Care Provider [phone] LELA MCCANN, HENRI Jackson Unavailable [phone] Reason for Visit and Chief Complaint DEXASCAN Problems Includes: Problems addressed during this encounter and other active Problems All Visits Onset Date Resolved Date Provider Condition Jatinder teresa Reported Family History of Heart Disease 02/24/2015 JASE MAGANA RN [facility] Active Last Documented On 02/24/2015 1:16PM ; [facility] Note: Unchanged - dad History of Hypothyroidism 02/24/2015 JASE MAGANA RN [facility] Active Last Documented On 02/24/2015 1:16PM ; [facility] Note: Unchanged History of Tubal Ligation 02/24/2015 JASE MAGANA RN [facility] Active Last Documented On 02/24/2015 1:16PM ; [facility] Note: Unchanged Multiple Sclerosis 02/24/2015 JASE DUPONT RN [facility] Active Last Documented On 5 1:17PM ; [facility] Plan of Treatment No Plan of [...] On 7 10:12AM By ABHINAV CHERY ; [facility] SM Echinacea 125MG Oral Tablet 03/20/2017 Provider: Diagnosis: Last Documented On 7 10:12AM By ABHINAV CHERY ; [facility] Turmeric 500MG Oral Capsule, conventional 03/20/2017 Provider: Diagnosis: Last Documented On 7 10:13AM By ABHINAV CHERY ; [facility] Jessie Allergy 180MG Oral Tablet 03/20/2017 Provide r: Diagnosis: Last Documented On 7 10:13AM By ABHINAV CHERY ; [facility] Buffered Vitamin C 1000MG Oral Capsule, conventional 0 03/20/2017 Provider: Diagnosis: Last Documented On 7 10:11AM By ABHINAV CHERY ; [facility] CVS Digestive Probiotic Oral Capsule, conventional Provider: Diagnosis: Last Documented On 7 10:11AM By ABHINAV CHERY ; [facility] B Complex-B12 Tablet 03/17/2016 Provider: Diagnosis: Last Documented On 03/17/2016 3:22PM By VINNIE YAP MA ; [facility] SM Vitamin D3 1000 UNIT Tablet 03/17/2016 Provider: Diagnosis: Last Documented On 03/17/2016 3:22PM By VINNIE YAP MA ; [facility] Daily Value Multivitamin Tablet 03/17/2016 Provider: Diagnosis: Last Documented On 03/17/2016 3:22PM By VINNIE YAP MA ; [facility] Singulair 4 MG Tablet, chewable 03/17/2016 Provider: Diagnosis: Last Documented On 03/17/2016 3:21PM By VINNIE YAP MA ; [facility] Flonase 50 MCG/ACT Suspension 02/24/2015 Provider: Diagnosis: Last Documented On 5 1:10PM By MAX CHERY ; [facility] Levothyroxine Sodium 100 MCG Tablet 02/24/2015 Provi danny: Diagnosis: Last Documented On 5 12:58PM By MAX CHERY ; [facility] Medications Administered Includes: Administered Medications from [...] Active Last Documented On 9 9:47AM ; [facility] Encounters Encounter Provider Location Date Check-In Time Check-Out Time Diagnosis LEILANI MAGANA RN [facility] [employer] 03/28/2019 9:36AM 9:45AM Insurance Includes: Active Insurance Policies Plan Name Member ID Group # Subscriber Relationship Effect wesly Dates 1 - [facility] [id number] ELVIRA Moy 2 - [facility] [[email or web address] [id number] ELVIRA Moy Clinical Notes Includes: Clinical Notes from this encounter No Clinical Notes Recorded
--- OUTSIDE RECORDS SUMMARY | 2024-08-26 23:25 | XMS_ITS | Referral Summary ---
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 Gender Identity Not on file Sexual Orientation [...] CDT SCREENING MAMM W LARA BI Acc#: [id number] DATE OF EXAM: Apr 07 2017 SCREENING [...] Apr 07 2017 10:20A Ordering DR: KRISTY ([facility]) IZZY Attending DR: DR HENRI VOGEL Attending: DR HENRI VOGEL Requesting: KRISTY DAVISON ([facility]) Requesting Attending Attending ID: [id number] Requesting ID: [id number] Report To 1 ID: [id number] Report To 1 Name: KRISTY DAVISON ([facility]) Report To 1 FAX: [phone] NextGen Order #: Procedure Note Miscellaneous, Not In File / Provider, MD Yeni - 04/10/2017 SCREENING MAMM W LARA BI Acc#: [id number] DATE OF EXAM: Apr 07 2017 SCREENING [...] Apr 07 2017 10:20A Ordering DR: KRISTY ([facility]) IZZY Attending DR: DR HENRI VOGEL Attending: DR HENRI VOGEL Requesting: KRISTY DAVISON ([facility]) Requesting Attending Attending ID: [id number] Requesting ID: [id number] Report To 1 ID: [id number] Report To 1 Name: KRISTY DAVISON ([facility]) Report To 1 FAX: [phone] NextGen Order #: Kristy Davison TERRAZZO FINISHER IMG MAMMO PROCEDURES Edited Re sult - Final from Last 3 Months or Most Recently Relevant to Health Maintenance Insurance [facility] Care Teams Mixer Dry Food Products Relationship Specialty Start Date End Date Meraz, Iraida Quan NP [address] [place], [place] [id number] PCP - General Nurse Practitioner 03/17/23 Jimmy Barahona, PT Physical Therapist Physical Therapy 02/13/18 Joelle Whittaker, CARDIAC CATH LAB RADIOLOGY TECHNOLOGIST Physical Therapist Physical Therapy 02/28/18
[2024-08-26 23:33] VITALS: BP 150/82; PULSE 61; RESP 19; O2SAT 99
[2024-08-27] MEDS: diphenhydrAMINE HCl INJ 50 MG/ML VIAL 25 MG IV PUSH (00:21)
[2024-08-27] MEDS: SODIUM CHLORIDE 0.9% IV 1,000 ML 999 ML IV CONT (00:21)
[2024-08-27] MEDS: PROCHLORPERAZINE EDISYLATE 10 MG/2 ML VIAL IV PUSH (00:22)
[2024-08-27] MEDS: KETOROLAC 15 MG/ML VIAL (*BKC) IV PUSH (00:24)
[2024-08-27] MEDS: dexAMETHasone SOD PHOS INJ 10 MG/ML 1 ML VIAL IV PUSH (00:25)
[2024-08-27] MEDS: diphenhydrAMINE HCl INJ 50 MG/ML VIAL IV PUSH (00:38)
[2024-08-27 00:48] VITALS: BP 103/71; PULSE 58; RESP 18; O2SAT 96
[2024-08-27 02:21] VITALS: BP 110/76; PULSE 60; RESP 19; O2SAT 98
[2024-08-27 05:00] VITALS: BP 113/82; PULSE 62; RESP 18; O2SAT 99
[2024-08-27 06:41] VITALS: BP 119/88; PULSE 59; RESP 16; O2SAT 98
== END 2024-08-27 06:43 | disposition home or self-care (01) ==
PROVIDERS: Physician Assistant; Emergency Provider Student in an Organized Health Care Education/Training Program; PCP Nurse Practitioner Family
DX: G43.909 Migraine, unspecified, not intractable, without status migrainosus (principal); G35 Multiple sclerosis; E03.9 Hypothyroidism, unspecified; Z20.822 Contact with and (suspected) exposure to COVID-19
CPT/HCPCS: 36415; 70450; 71045; 80053; 81003; 85025; 87637; 96361; 96374; 96375; 99284; J0780; J1100; J1200; J1885; J7030